=== PATIENT | male | born 1970 | race Hispanic/Latino ===

== ENCOUNTER 2016-12-22 17:14 | Emergency (ER) | payer MEDICARE, MEDICAID ==
[2016-12-22 17:14] VITALS: BMI 15.7
[2016-12-22 17:58] VITALS: BP 118/74; PULSE 55; RESP 18; TEMP 98.1; O2SAT 95
== END 2016-12-22 17:57 | disposition left against medical advice (07) ==
LOC: C.ER 17:14
DX: R10.9 Unspecified abdominal pain (principal); Z02.9 Encounter for administrative examinations, unspecified

== ENCOUNTER 2016-12-27 16:51 | Emergency (ER) | payer MEDICARE, MEDICAID ==
[2016-12-27 16:52] VITALS: BMI 15.7
[2016-12-27 16:56] VITALS: BP 126/87; PULSE 78; RESP 20; TEMP 97.4; O2SAT 97
--- NOTE | 2016-12-27 17:15 | C.PDOC ---
History Of Present Illness 46 yr old male, well know to me, presents to the ER requesting prescription for . Patient also reports of right leg pain. Patient runs/jogs few miles each day. Patient denies fever, chills, chest pain, SOB, nausea, vomiting, weakness or numbness. Time Seen by Provider: 12/27/16 17:01 Chief Complaint (Nursing): Abdominal Pain History Per: Patient History/Exam Limitations: no limitations Onset/Duration Of Symptoms: Unknown Past Medical History Reviewed: Historical Data, Nursing Documentation, Vital Signs Vital Signs: Last Vital Signs Temp 97.4 F L 12/27/16 16:56 Pulse 78 12/27/16 16:56 Resp 20 12/27/16 16:56 BP 126/87 12/27/16 16:56 Pulse Ox 97 12/30/16 04:18 - Medical History PMH: Gastritis, Schizophrenia Family History: States: No Known Family Hx - Social History Hx Tobacco Use: No Hx Alcohol Use: No Hx Substance Use: No Review Of Systems Except As Marked, All Systems Reviewed And Found Negative. Constitutional: Negative for: Fever, Chills Cardiovascular: Negative for: Chest Pain Respiratory: Negative for: Shortness of Breath Gastrointestinal: Negative for: Nausea, Vomiting Musculoskeletal: Positive for: Leg Pain (Right leg ) Neurological: Negative for: Weakness, Numbness Physical Exam - Physical Exam Appears: Well, Non-toxic, No Acute Distress Skin: Normal Color, Warm, Dry, No Rash Head: Atraumatic, Normacephalic Eye(s): bilateral: Normal Inspection, PERRL, EOMI Oral Mucosa: Moist Chest: Symmetrical, No Tenderness Cardiovascular: Rhythm Regular, No Murmur Respiratory: Normal Breath Sounds, No Rales, No Rhonchi, No Wheezing Gastrointestinal/Abdominal: Normal Exam, Soft, No Tenderness, No Guarding, No Rebound Extremity: Normal ROM, No Swelling Neurological/Psych: Oriented x3, Normal Speech, Normal Motor ED Course And Treatment O2 Sat by Pulse Oximetry: 97 Medical Decision Making Medical Decision Making: No indication of acute abd or DVT Rx given Disposition Counseled Patient/Family Regarding: Diagnosis, Need For Followup - Disposition Referrals: [facility] at [facility] [Outside] Disposition: HOME/ ROUTINE Disposition Time: 17:15 Condition: GOOD Prescriptions: Atropine/Hyoscyamine [] 1 tab PO TID PRN #20 tab PRN Reason: .abd pain Diclofenac Sodium [Voltaren] 4 gm TP TID #100 gel..gram. Instructions: Acute Abdominal Pain (DC), Leg Pain (ED) - Clinical Impression Clinical Impression: Pain of right calf, Abdominal pain in male - Scribe Statement The provider has reviewed the documentation as recorded by the Neal Pires Provider Attestation: All medical record entries made by the Neal were at my direction and personally dictated by me. I have reviewed the chart and agree that the record accurately reflects my personal performance of the history, physical exam, medical decision making, and the department course for this patient. I have also personally directed, reviewed, and agree with the discharge instructions and disposition.
== END 2016-12-27 17:30 | disposition home or self-care (01) ==
LOC: C.ER 16:51
DX: M79.661 Pain in right lower leg (principal); R10.9 Unspecified abdominal pain

== ENCOUNTER 2017-01-16 16:27 | Emergency (ER) | payer MEDICARE, MEDICAID ==
[2017-01-16 16:40] VITALS: BMI 20.7
[2017-01-16 16:46] VITALS: BP 123/71; PULSE 53; RESP 18; TEMP 98.3; O2SAT 99
== END 2017-01-16 17:31 | disposition left against medical advice (07) ==
LOC: C.ER 16:27
DX: M79.662 Pain in left lower leg (principal); Z02.9 Encounter for administrative examinations, unspecified

== ENCOUNTER 2017-02-21 15:34 | Emergency (ER) | payer MEDICARE, MEDICAID ==
[2017-02-21 15:40] VITALS: BP 110/64; PULSE 57; RESP 18; TEMP 98; O2SAT 98
== END 2017-02-21 17:10 | disposition left against medical advice (07) ==
LOC: C.ER 15:34
DX: Z02.89 Encounter for other administrative examinations (principal); M79.605 Pain in left leg

== ENCOUNTER 2017-03-10 06:24 | Emergency (ER) | payer MEDICARE, MEDICAID ==
[2017-03-10 07:43] VITALS: BP 127/72; PULSE 74; RESP 16; TEMP 98.5; O2SAT 100
--- NOTE | 2017-03-10 07:49 | C.PDOC ---
History Of Present Illness 46 y/o male presents to ED with c/o left lower leg pain. Patient states he began to feel a cramping pain while running. Denies trauma, fall, new weakness or numbness, SOB, chest pain, or other associated symptoms. Time Seen by Provider: 03/10/17 07:36 Chief Complaint (Nursing): Lower Extremity Problem/Injury History Per: Patient History/Exam Limitations: no limitations Onset/Duration Of Symptoms: Days Current Symptoms Are (Timing): Still Present Recent travel outside of the [place]: No Past Medical History Reviewed: Historical Data, Nursing Documentation, Vital Signs Vital Signs: Last Vital Signs Temp 98.5 F 03/10/17 07:40 Pulse 74 03/10/17 07:40 Resp 16 03/10/17 07:40 BP 127/72 03/10/17 07:40 Pulse Ox 100 03/10/17 09:05 - Medical History PMH: Gastritis, Schizophrenia Family History: States: Unknown Family Hx - Social History Hx Tobacco Use: No Hx Alcohol Use: No Hx Substance Use: No - Immunization History Hx Tetanus Toxoid Vaccination: No Hx Influenza Vaccination: No Hx Pneumococcal Vaccination: No Review Of Systems Except As Marked, All Systems Reviewed And Found Negative. Constitutional: Negative for: Fever, Chills Musculoskeletal: Positive for: Leg Pain Skin: Negative for: Rash, Bruising Neurological: Negative for: Weakness, Numbness Physical Exam - Physical Exam Appears: Non-toxic, No Acute Distress Skin: Normal Color, Warm, Dry Head: Atraumatic, Normacephalic Eye(s): bilateral: Normal Inspection, PERRL, EOMI Oral Mucosa: Moist Neck: Normal ROM, Supple Chest: Symmetrical Cardiovascular: Rhythm Regular, No Friction Rub, No Murmur Respiratory: Normal Breath Sounds, No Rales, No Rhonchi, No Wheezing Gastrointestinal/Abdominal: Soft, No Tenderness, No Guarding, No Rebound Back: Normal Inspection Extremity: Normal ROM, No Tenderness, No Calf Tenderness, Capillary Refill (< 2 sec. ), No Deformity, No Swelling Extremity: Bilateral: Atraumatic, Normal Color And Temperature Pulses: Left Dorsalis Pedis: Normal, Right Dorsalis Pedis: Normal Neurological/Psych: Oriented x3, Normal Speech, Normal Cranial Nerves, Normal Motor, Normal Sensation Gait: Steady ED Course And Treatment O2 Sat by Pulse Oximetry: 100 (RA) Pulse Ox Interpretation: Normal Medical Decision Making Medical Decision Making: Plan: * venous duplex scan * reassess Progress: Patient eloped from ER prior to tests. 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 - Scribe Statement The provider has reviewed the documentation as recorded by the Ashokibjayce López All medical record entries made by the Neal were at my direction and personally dictated by me. I have reviewed the chart and agree that the record accurately reflects my personal performance of the history, physical exam, medical decision making, and the department course for this patient. I have also personally directed, reviewed, and agree with the discharge instructions and disposition.
== END 2017-03-10 07:40 | disposition left against medical advice (07) ==
LOC: C.ER 06:24
DX: M79.662 Pain in left lower leg (principal)

== ENCOUNTER 2017-03-14 07:28 | Emergency (ER) | payer MEDICARE, MEDICAID ==
[2017-03-14 07:32] VITALS: BP 107/65; PULSE 84; RESP 16; TEMP 97.3; O2SAT 97
--- NOTE | 2017-03-14 07:46 | C.PDOC ---
History Of Present Illness Patient is a 46 y/o male, with psychiatric history, that presents to the ED for evaluation of crampy left calf pain for the past 1 week. Patient notes being seen in this ED and [facility] several times in the past. Pt is requesting pain medications. Notes that pain is 4/10 in severity, and states pain is increased with running. Otherwise, denies any fall, trauma, extremity weakness/numbness, fever, chills, skin changes, or any other associated symptoms at this time. Time Seen by Provider: 03/14/17 07:35 Chief Complaint (Nursing): Lower Extremity Problem/Injury History Per: Patient History/Exam Limitations: no limitations Onset/Duration Of Symptoms: Days Current Symptoms Are (Timing): Still Present Severity: Moderate Pain Scale Rating Of: 4 Recent travel outside of the [place]: No Additional History Per: Patient Past Medical History Reviewed: Historical Data, Nursing Documentation, Vital Signs Vital Signs: Last Vital Signs Temp 97.3 F L 03/14/17 07:31 Pulse 84 03/14/17 07:31 Resp 16 03/14/17 07:31 BP 107/65 03/14/17 07:31 Pulse Ox 97 03/14/17 09:05 - Medical History PMH: Gastritis, Schizophrenia Denies: Chronic Kidney Disease Family History: States: Unknown Family Hx - Social History Hx Tobacco Use: No Hx Alcohol Use: No Hx Substance Use: No - Immunization History Hx Tetanus Toxoid Vaccination: No Hx Influenza Vaccination: No Hx Pneumococcal Vaccination: No Review Of Systems Except As Marked, All Systems Reviewed And Found Negative. Constitutional: Negative for: Fever, Chills Musculoskeletal: Positive for: Leg Pain (left calf pain) Skin: Negative for: Rash Neurological: Negative for: Weakness, Numbness Physical Exam - Physical Exam Appears: Non-toxic, No Acute Distress Skin: Normal Color, Warm, Dry Head: Atraumatic, Normacephalic Eye(s): bilateral: Normal Inspection, EOMI Neck: Normal ROM, Supple Chest: Symmetrical Cardiovascular: Rhythm Regular, No Murmur Respiratory: Normal Breath Sounds, No Rales, No Rhonchi, No Wheezing Extremity: Normal ROM, No Tenderness, No Pedal Edema, No Calf Tenderness, Capillary Refill (< 2 sec.), No Deformity, No Swelling Extremity: Bilateral: Atraumatic, Normal Color And Temperature, Normal ROM Neurological/Psych: Oriented x3, Normal Speech, Normal Cognition, Normal Motor, Normal Sensation ED Course And Treatment O2 Sat by Pulse Oximetry: 97 (on RA) Pulse Ox Interpretation: Normal Progress Note: Pt is being dicharged home with prescription of Motrin 600mg, and is instructed to follow up with PMD. Disposition Counseled Patient/Family Regarding: Need For Followup, Rx Given - Disposition Disposition: HOME/ ROUTINE Disposition Time: 07:44 Condition: GUARDED Prescriptions: Ibuprofen [Motrin] 600 mg PO TID #15 tab Menthol [Bengay Cold Therapy] 113 g TP DAILY #1 bottle Instructions: RICE Therapy (ED) Forms: General Discharge Instructions - POA Present On Arrival: None - Clinical Impression Clinical Impression: Leg pain, left, Muscle strain - Scribe Statement The provider has reviewed the documentation as recorded by the Neal Guthrie Provider Attestation: All medical record entries made by the Ashokibjayce were at my direction and personally dictated by me. I have reviewed the chart and agree that the record accurately reflects my personal performance of the history, physical exam, medical decision making, and the department course for this patient. I have also personally directed, reviewed, and agree with the discharge instructions and disposition.
== END 2017-03-14 07:56 | disposition home or self-care (01) ==
LOC: C.ER 07:28
DX: S86.912A Strain of unspecified muscle(s) and tendon(s) at lower leg level, left leg, initial encounter (principal); X58.XXXA Exposure to other specified factors, initial encounter; M79.605 Pain in left leg

== ENCOUNTER 2017-04-22 06:25 | Emergency (ER) | payer MEDICARE, MEDICAID ==
[2017-04-22 06:42] VITALS: BP 115/70; PULSE 52; RESP 17; TEMP 97.6; O2SAT 98
--- NOTE | 2017-04-22 06:43 | C.PDOC ---
History Of Present Illness A 46 y/o M c/o right leg cramps after walking a lot yesterday. Pt is requesting Flexeril and has PHx of the same complaint all with request of Flexeril. Denies trauma, calf pain, weakness, numbness, or any other complaints. Time Seen by Provider: 04/22/17 06:38 Chief Complaint (Nursing): Lower Extremity Problem/Injury History Per: Patient History/Exam Limitations: no limitations Onset/Duration Of Symptoms: Days Current Symptoms Are (Timing): Still Present Severity: Mild Recent travel outside of the [place]: No Additional History Per: Patient Past Medical History Reviewed: Historical Data, Nursing Documentation, Vital Signs Vital Signs: Last Vital Signs Temp 97.6 F 04/22/17 06:38 Pulse 52 L 04/22/17 06:38 Resp 17 04/22/17 06:38 BP 115/70 04/22/17 06:38 Pulse Ox 98 04/22/17 06:38 - Medical History PMH: Gastritis, Schizophrenia Denies: Chronic Kidney Disease Family History: States: Unknown Family Hx - Social History Hx Tobacco Use: No Hx Alcohol Use: No Hx Substance Use: No - Immunization History Hx Tetanus Toxoid Vaccination: No Hx Influenza Vaccination: No Hx Pneumococcal Vaccination: No Review Of Systems Except As Marked, All Systems Reviewed And Found Negative. Constitutional: Negative for: Other (trauma) Musculoskeletal: Positive for: Leg Pain (Right leg cramps. NO calf pain) Neurological: Negative for: Weakness, Numbness Physical Exam - Physical Exam Appears: Non-toxic, No Acute Distress Skin: Warm, Dry Head: Atraumatic, Normacephalic Extremity: Normal ROM, No Tenderness, No Calf Tenderness, Capillary Refill (< 2secs), No Deformity, No Swelling Extremity: Bilateral: Normal Color And Temperature Pulses: Left Dorsalis Pedis: Normal, Right Dorsalis Pedis: Normal Neurological/Psych: Oriented x3, Normal Speech, Normal Cognition, Normal Motor, Normal Sensation, Other (No focal deficit) Gait: Steady ED Course And Treatment O2 Sat by Pulse Oximetry: 98 (RA) Pulse Ox Interpretation: Normal Progress Note: Impression: A 46 y/o M c/o right lower leg cramps after wallking a lot yesterday. Plans: Flexeril, Reassess. Pt is in no acute distress and is resting comfortably. Pt will be discharged and instructed to follow up with PMD if symptoms persists. Disposition Counseled Patient/Family Regarding: Diagnosis, Need For Followup, Rx Given - Disposition Referrals: [facility] at [facility] [Outside] Disposition Time: 06:50 Condition: STABLE Prescriptions: Acetaminophen [Tylenol 325mg tab] 650 mg PO QID #20 tab Cyclobenzaprine [Cyclobenzaprine HCl] 10 mg PO HS #5 tab - Clinical Impression Clinical Impression: Muscle strain of thigh - Scribe Statement The provider has reviewed the documentation as recorded by the Scribjayce jaime All medical record entries made by the Ashokibjayce were at my direction and personally dictated by me. I have reviewed the chart and agree that the record accurately reflects my personal performance of the history, physical exam, medical decision making, and the department course for this patient. I have also personally directed, reviewed, and agree with the discharge instructions and disposition.
== END 2017-04-22 06:49 | disposition home or self-care (01) ==
LOC: C.ER 06:25 → SUPCPDRO 06:25 → C.ER 06:49
DX: S76.911A Strain of unspecified muscles, fascia and tendons at thigh level, right thigh, initial encounter (principal); X50.3XXA Overexertion from repetitive movements, initial encounter; Y93.01 Activity, walking, marching and hiking; Y92.89 Other specified places as the place of occurrence of the external cause

== ENCOUNTER 2017-05-10 13:59 | Emergency (ER) | payer MEDICAID, MEDICARE ==
[2017-05-10 14:32] VITALS: BMI 19.0
[2017-05-10 14:34] VITALS: BP 114/72; PULSE 70; RESP 20; TEMP 98.3; O2SAT 98
--- NOTE | 2017-05-10 15:05 | C.PDOC ---
History Of Present Illness 47 yo male come in for evaluation of nasal congestion, sore throat and dry cough for past few days. Pt denies high fever chills, dizziness, neck pain, drooling, dysphgia, dyspnea, CP, SOB, wheezing, abd. pain, N/V/D. Ambulate to ED for evaluation, not in any apparent distress. Time Seen by Provider: 05/10/17 14:41 Chief Complaint (Nursing): ENT Problem History Per: Patient Onset/Duration Of Symptoms: Gradual Past Medical History Reviewed: Historical Data, Nursing Documentation, Vital Signs Vital Signs: Last Vital Signs Temp 98.3 F 05/10/17 14:33 Pulse 70 05/10/17 14:33 Resp 20 05/10/17 14:33 BP 114/72 05/10/17 14:33 Pulse Ox 98 05/10/17 15:06 - Medical History PMH: Gastritis, Schizophrenia Denies: Chronic Kidney Disease Surgical History: No Surg Hx Family History: States: No Known Family Hx - Social History Hx Tobacco Use: No Hx Alcohol Use: No Hx Substance Use: No - Immunization History Hx Tetanus Toxoid Vaccination: No Hx Influenza Vaccination: No Hx Pneumococcal Vaccination: No Review Of Systems Except As Marked, All Systems Reviewed And Found Negative. Constitutional: Negative for: Fever, Chills ENT: Positive for: Nose Discharge, Nose Congestion, Throat Pain, Throat Swelling. Negative for: Ear Pain, Ear Discharge Cardiovascular: Negative for: Chest Pain, Palpitations, Edema Respiratory: Positive for: Cough. Negative for: Shortness of Breath, Wheezing Gastrointestinal: Negative for: Nausea, Vomiting, Abdominal Pain, Diarrhea Skin: Negative for: Rash Neurological: Negative for: Weakness, Numbness, Altered Mental Status, Headache , Dizziness Physical Exam - Physical Exam Appears: Well, Non-toxic, No Acute Distress Skin: Normal Color, Warm, Dry, No Rash Eye(s): bilateral: PERRL Ear(s): Bilateral: Normal Nose: No Flaring Oral Mucosa: Moist, No Drooling Throat: Erythema (B/L), Exudate (B/L), No Drooling Neck: Supple Cardiovascular: Rhythm Regular Respiratory: No Decreased Breath Sounds, No Accessory Muscle Use, No Rales, No Rhonchi, No Stridor, No Wheezing Gastrointestinal/Abdominal: Soft, No Tenderness Extremity: No Pedal Edema Neurological/Psych: Oriented x3, Normal Speech ED Course And Treatment O2 Sat by Pulse Oximetry: 98 Pulse Ox Interpretation: Normal Progress Note: On re-eavluation, pt is afebrile, hemodynamicaly stable. Non- toxic. Tolerate Po well in ED. PUleOx 98% RA. ENT: exam c/w pharyngitis. neck : Supple, (-) meningeal sign. Lungs: CTA B/L, BS equal B/L. ABd: benign. Pt advised on course of ds and ref. to F/U with PMD in 2 days for re-evaluation. return to ED at any time if any worsening or new changes. Disposition Counseled Patient/Family Regarding: Diagnosis, Need For Followup, Rx Given - Disposition Referrals: [facility] [Outside] Disposition: HOME/ ROUTINE Disposition Time: 15:03 Condition: STABLE Additional Instructions: Encourage fluids Take medication as prescribed [id number] up with PMD in 2-3 days for re-evaluation. Return to ED if any worsening or new changes. Prescriptions: Albuterol HFA [Ventolin HFA 90 mcg/actuation (8 g)] 1 puff IH Q6 #1 inhaler Azithromycin [Zithromax] 250 mg PO DAILY #4 tab Prednisone [Deltasone] 20 mg PO DAILY #3 tablet Instructions: Pharyngitis (ED) Forms: Get[employer] (Danish) - Clinical Impression Clinical Impression: Pharyngitis
== END 2017-05-10 15:30 | disposition home or self-care (01) ==
LOC: C.ER 13:59
DX: J02.9 Acute pharyngitis, unspecified (principal)

== ENCOUNTER 2017-07-04 14:21 | Emergency (ER) | payer MEDICARE, MEDICAID ==
[2017-07-04 14:21] VITALS: BMI 19.2
== END 2017-07-04 14:40 | disposition left against medical advice (07) ==
LOC: C.ER 14:21
DX: M25.561 Pain in right knee (principal); Z02.9 Encounter for administrative examinations, unspecified

== ENCOUNTER → 2017-07-15 16:43 | Emergency (ER) | payer MEDICARE, MEDICAID | END | disposition left against medical advice (07) | LOC: C.ER 16:43 | DX: M79.606 Pain in leg, unspecified (principal); Z02.9 Encounter for administrative examinations, unspecified ==

== ENCOUNTER 2017-09-15 17:09 | Emergency (ER) | payer MEDICARE, MEDICAID ==
[2017-09-15 17:22] VITALS: BP 125/74; PULSE 88; RESP 18; TEMP 99.3; O2SAT 96
[2017-09-15] MEDS ORDERED: Alum-Mag Hydrox-Simethicone Susp (30 mL) PO STA (17:58)
[2017-09-15] MEDS ORDERED: Alum-Mag Hydrox-Simethicone Susp (30 mL) ONE (18:04)
--- NOTE | 2017-09-15 18:17 | C.PDOC ---
Time Seen by Provider: 09/15/17 17:48 Chief Complaint (Nursing): Abdominal Pain History Per: Patient Onset/Duration Of Symptoms: Mins Current Symptoms Are (Timing): Still Present Context: Food (after eating at [employer]) Severity: Mild Location Of Pain/Discomfort: Epigastric Radiation Of Pain To:: None Quality Of Discomfort: Unable To Describe Additional History Per: Prior Records Past Medical History Reviewed: Historical Data, Nursing Documentation, Vital Signs Vital Signs: Last Vital Signs Temp 99.3 F 09/15/17 17:21 Pulse 88 09/15/17 17:21 Resp 18 09/15/17 17:21 BP 125/74 09/15/17 17:21 Pulse Ox 96 09/15/17 17:21 - Medical History PMH: Gastritis, Schizophrenia Surgical History: No Surg Hx Family History: States: Unknown Family Hx - Social History Hx Tobacco Use: No Hx Alcohol Use: No Hx Substance Use: No - Immunization History Hx Tetanus Toxoid Vaccination: No Hx Influenza Vaccination: No Hx Pneumococcal Vaccination: No Review Of Systems Except As Marked, All Systems Reviewed And Found Negative. Constitutional: Negative for: Fever, Weakness Cardiovascular: Negative for: Chest Pain Respiratory: Negative for: Shortness of Breath Gastrointestinal: Negative for: Vomiting, Diarrhea, Melena, Hematochezia, Hematemesis Genitourinary: Negative for: Dysuria Musculoskeletal: Negative for: Neck Pain, Back Pain Skin: Negative for: Rash Neurological: Negative for: Weakness, Numbness, Seizures, Altered Mental Status , Dizziness Physical Exam - Physical Exam Appears: Non-toxic, No Acute Distress Skin: Normal Color, Warm, Dry, No Rash Head: Atraumatic, Normacephalic Eye(s): bilateral: Normal Inspection, PERRL, EOMI Neck: Normal ROM, Supple Cardiovascular: Rhythm Regular Respiratory: Normal Breath Sounds, No Accessory Muscle Use Gastrointestinal/Abdominal: Soft, No Tenderness, No Distention Back: No CVA Tenderness Extremity: Normal ROM, No Pedal Edema, No Calf Tenderness Neurological/Psych: Oriented x3, Normal Motor, Normal Sensation ED Course And Treatment O2 Sat by Pulse Oximetry: 96 Pulse Ox Interpretation: Normal Progress - Interventions Interventions:: Observation - Medications Administered Oral: Antacid, H-2 dhruv - Patient Status Patient status: Completely improved - Continuity of Care Discussed patient case with:: Patient, ED Nurse - Patient Plan Patient Plan: Discharge, F/U with PCP, Continue present meds Disposition Counseled Patient/Family Regarding: Diagnosis, Need For Followup, Rx Given - Disposition Disposition: HOME/ ROUTINE Disposition Time: 18:20 Condition: IMPROVED Additional Instructions: Follow up with your doctor within 1-2 weeks for further evaluation and treatment. Return to the ER if you develop fever, vomiting, bloody or black stools, worsening of symptoms or if you have any other concerns. Prescriptions: Famotidine [Pepcid] 20 mg PO BID #30 tab Instructions: Gastritis (ED) - Clinical Impression Clinical Impression: Gastritis
== END 2017-09-15 18:51 | disposition home or self-care (01) ==
LOC: C.ER 17:09
DX: K29.70 Gastritis, unspecified, without bleeding (principal)

== ENCOUNTER → 2017-09-21 15:47 | Emergency (ER) | payer MEDICARE, MEDICAID | END | disposition left against medical advice (07) | LOC: C.ER 15:47 | DX: Z02.89 Encounter for other administrative examinations (principal); R10.9 Unspecified abdominal pain ==

== ENCOUNTER 2017-10-18 15:22 | Emergency (ER) | payer MEDICARE, MEDICAID ==
[2017-10-18 15:27] VITALS: BP 121/80; PULSE 76; RESP 20; TEMP 97.7; O2SAT 98
[2017-10-18] MEDS ORDERED: Calcium Gluconate 4.65 mEq/10 ml Inj ONE (16:00)
[2017-10-18] MEDS ORDERED: Dextrose 50% VIAL Inj (50 ml) IV ONE (16:00)
[2017-10-18] MEDS ORDERED: (Novolin R) Insulin Human Regular 100 units/ml vial ONE (16:00)
--- NOTE | 2017-10-18 18:43 | C.PDOC ---
History Of Present Illness 16:52 PATIENT ELOPED ER PRIOR TO EXAMINATION. PATIENT WAS NOT SEEN BY ME Time Seen by Provider: 10/18/17 15:45 Chief Complaint (Nursing): Abdominal Pain Past Medical History Reviewed: Historical Data, Nursing Documentation, Vital Signs Vital Signs: Last Vital Signs Temp 97.7 F 10/18/17 15:25 Pulse 76 10/18/17 15:25 Resp 20 10/18/17 15:25 BP 121/80 10/18/17 15:25 Pulse Ox 98 10/18/17 18:43 - Medical History PMH: Gastritis, Schizophrenia Denies: Chronic Kidney Disease Family History: States: Unknown Family Hx - Social History Hx Tobacco Use: No Hx Alcohol Use: No Hx Substance Use: No - Immunization History Hx Tetanus Toxoid Vaccination: No Hx Influenza Vaccination: No Hx Pneumococcal Vaccination: No Review Of Systems Review Of Systems: ROS cannot be obtained secondary to pt's inabilty to answer questions. ED Course And Treatment O2 Sat by Pulse Oximetry: 98 Medical Decision Making Medical Decision Making: PATIENT ELOPED ER PRIOR TO EXAMINATION. PATIENT WAS NOT SEEN BY ME Patient left ED without being seen by me. No patient contact was made by me.Per administration, I was told to sign the chart, solely for the purpose of having patient off of my list, not because I saw the patient. I was also told by administration to write a statement stating that I was not involved in this patient's care. Disposition - Disposition Disposition: ELOPEMENT - ER ONLY Disposition Time: 16:52 Condition: UNKNOWN Forms: [employer] (American) - Clinical Impression Clinical Impression: History of elopement from health care facility
== END 2017-10-18 16:52 | disposition left against medical advice (07) ==
LOC: C.ER 15:22
DX: Z02.89 Encounter for other administrative examinations (principal); R10.9 Unspecified abdominal pain

== ENCOUNTER 2017-12-27 11:02 | Emergency (ER) | payer MEDICARE, MEDICAID ==
[2017-12-27 11:11] VITALS: BP 117/79; PULSE 94; RESP 20; TEMP 98; O2SAT 98
--- NOTE | 2017-12-27 11:32 | C.PDOC ---
History Of Present Illness 47-year-old male, presents to the emergency department with complaints of abdominal pain. Patient states he developed periumbilical pain while running in the park today. Patient has a Hx of multiple visits to the emergency department for various complaints. Patient states that the pain is gone and is requesting prescriptions for his GERD. Denies nausea/vomiting, diarrhea, fevers, chills, chest pain, GI bleeding, dysuria, constipation, or any other associated symptoms. No other complaints at this time. Time Seen by Provider: 12/27/17 11:23 Chief Complaint (Nursing): Abdominal Pain History Per: Patient History/Exam Limitations: no limitations Onset/Duration Of Symptoms: Days Current Symptoms Are (Timing): Gone Severity: Moderate Radiation Of Pain To:: None Associated Symptoms: denies: Fever, Chills, Back Pain Exacerbating Factors: None Alleviating Factors: None Recent travel outside of the [place]: No Past Medical History Reviewed: Historical Data, Nursing Documentation, Vital Signs Vital Signs: Last Vital Signs Temp 98 F 12/27/17 11:06 Pulse 94 H 12/27/17 11:06 Resp 20 12/27/17 11:06 BP 117/79 12/27/17 11:06 Pulse Ox 98 12/27/17 13:17 - Medical History PMH: No Chronic Diseases, Gastritis, Schizophrenia (as per previous triage.) Family History: States: No Known Family Hx - Social History Hx Tobacco Use: No Hx Alcohol Use: No Hx Substance Use: No - Immunization History Hx Tetanus Toxoid Vaccination: No Hx Influenza Vaccination: No Hx Pneumococcal Vaccination: No Review Of Systems Except As Marked, All Systems Reviewed And Found Negative. Constitutional: Negative for: Fever, Chills Cardiovascular: Negative for: Chest Pain Respiratory: Negative for: Shortness of Breath Gastrointestinal: Positive for: Abdominal Pain. Negative for: Nausea, Vomiting , Diarrhea, Constipation Musculoskeletal: Negative for: Back Pain Skin: Negative for: Rash Neurological: Negative for: Weakness, Numbness, Headache, Dizziness Physical Exam - Physical Exam Appears: Well, Non-toxic, No Acute Distress Skin: Normal Color, Warm, Dry, No Rash Head: Atraumatic, Normacephalic Eye(s): bilateral: Normal Inspection, PERRL, EOMI Nose: Normal Oral Mucosa: Moist Lips: Normal Appearing Neck: Normal ROM Cardiovascular: Rhythm Regular, No Murmur Respiratory: Normal Breath Sounds, No Accessory Muscle Use Gastrointestinal/Abdominal: Bowel Sounds (active), Soft, No Tenderness, No Guarding, No Rebound, No Hernia Back: Normal Inspection, No CVA Tenderness Extremity: Normal ROM, No Tenderness, No Deformity, No Swelling Neurological/Psych: Oriented x3, Normal Speech, Normal Motor Gait: Steady ED Course And Treatment O2 Sat by Pulse Oximetry: 98 (on RA) Pulse Ox Interpretation: Normal Disposition - Disposition Referrals: [facility] [Outside] Disposition: HOME/ ROUTINE Disposition Time: 12:00 Condition: GOOD Additional Instructions: Follow up with the medical doctor within 1-2 days. Return if worsened. Prescriptions: Acetaminophen [Tylenol] 325 mg PO Q6 PRN #30 tab PRN Reason: Pain, Mild (1-3) Aluminum Hydroxide/Magnesium [Maalox Plus 30 ml] 30 ml PO DAILY #200 udc Famotidine [Pepcid] 20 mg PO BID #20 tab Instructions: Dyspepsia (DC) Forms: [employer] (Indian) - Clinical Impression Clinical Impression: Normal exam, Dyspepsia - Scribe Statement The provider has reviewed the documentation as recorded by the Scribe (Ciera Mcneal) All medical record entries made by the Scribe were at my direction and personally dictated by me. I have reviewed the chart and agree that the record accurately reflects my personal performance of the history, physical exam, medical decision making, and the department course for this patient. I have also personally directed, reviewed, and agree with the discharge instructions and disposition.
== END 2017-12-27 12:00 | disposition home or self-care (01) ==
LOC: C.ER 11:02
DX: R10.13 Epigastric pain (principal)

== ENCOUNTER 2018-01-09 16:32 | Emergency (ER) | payer MEDICARE, MEDICAID ==
[2018-01-09 16:51] VITALS: BP 125/76; PULSE 61; TEMP 98.3; O2SAT 100
--- NOTE | 2018-01-09 17:08 | C.PDOC ---
History Of Present Illness 47 y/o male c/o left ear pain today. pt feels like he got a piece of q-tip stuck in his ear. no fever, no drainage from ear. denies any other complaints. Time Seen by Provider: 01/09/18 16:44 Chief Complaint (Nursing): ENT Problem History Per: Patient History/Exam Limitations: None Onset/Duration Of Symptoms: Days (1) Current Symptoms Are (Timing): Still Present Quality (Ear): Pain W/Touch, Foreign Body. denies: Discharge Past Medical History Reviewed: Historical Data, Nursing Documentation, Vital Signs Vital Signs: Last Vital Signs Temp 98.3 F 01/09/18 16:39 Pulse 61 01/09/18 16:39 Resp 16 01/09/18 17:21 BP 125/76 01/09/18 16:39 Pulse Ox 100 01/09/18 20:45 - Medical History PMH: Gastritis, Schizophrenia (as per previous triage.) Denies: Chronic Kidney Disease Family History: States: Unknown Family Hx - Social History Hx Tobacco Use: No Hx Alcohol Use: No Hx Substance Use: No - Immunization History Hx Tetanus Toxoid Vaccination: No Hx Influenza Vaccination: No Hx Pneumococcal Vaccination: No Review Of Systems Constitutional: Negative for: Fever, Chills ENT: Positive for: Ear Pain. Negative for: Nose Discharge, Nose Congestion, Mouth Swelling, Throat Pain Physical Exam - Physical Exam Appears: Non-toxic, No Acute Distress Skin: Warm, Dry Head: Atraumatic, Normacephalic Eye(s): bilateral: Normal Inspection Ear(s): Left: Other (no fb noted, beige debris moist noted in canal with dried wax, no fb noted, tm not visualized. ), Right: TM Obscured By Wax Nose: No Discharge Oral Mucosa: Moist Tongue: Normal Appearing Neurological/Psych: Oriented x3, Normal Speech, Normal Cognition ED Course And Treatment O2 Sat by Pulse Oximetry: 100 Medical Decision Making Medical Decision Making: pt with debris in canal, no fb noted, will d/c with cortsporin otic suspension and ent f/u. Tylenol for pain Disposition Counseled Patient/Family Regarding: Diagnosis, Need For Followup, Rx Given - Disposition Referrals: Neymar Berry MD [Staff Provider] - Disposition: HOME/ ROUTINE Disposition Time: 17:10 Condition: GOOD Additional Instructions: Use drops as directed. Tylenol for pain if needed. Follow up with Dr Berry (ear/ nose throat specialist) soon; call on Thursday to make appointment. Prescriptions: Neomycin/Polymyxin/Hydrocortis [Cortisporin Otic Susp] 4 drop TID #1 bottle Instructions: Outer Ear Infection (DC) Forms: [employer] [facility] (Malay) - Clinical Impression Clinical Impression: Otitis externa, left
[2018-01-09 17:22] VITALS: RESP 16
== END 2018-01-09 17:21 | disposition home or self-care (01) ==
LOC: C.ER 16:32
DX: H60.92 Unspecified otitis externa, left ear (principal)

== ENCOUNTER → 2018-01-15 18:48 | Emergency (ER) | payer MEDICAID, MEDICARE | END | disposition left against medical advice (07) | LOC: C.ER 18:48 | DX: Z02.89 Encounter for other administrative examinations (principal); R10.9 Unspecified abdominal pain ==

== ENCOUNTER 2018-02-05 16:18 | Emergency (ER) | payer MEDICARE, OTHER ==
[2018-02-05 16:50] VITALS: BP 119/74; O2SAT 97
--- NOTE | 2018-02-05 17:22 | C.PDOC ---
History Of Present Illness 47 year old male presents with a history of mental illness presents to the ED with nasal congestion and rhinorrhea for 2 weeks. Well known local psychiatric patient, well known for malingering and recently almost daily visits to the ED- usually @ [place]. Patient is argumentive and makes interrogatory difficult. Time Seen by Provider: 02/05/18 17:20 Chief Complaint (Nursing): Cough, Cold, Congestion History Per: Patient History/Exam Limitations: None Onset/Duration Of Symptoms: Days (2 weeks) Current Symptoms Are (Timing): Still Present Past Medical History Vital Signs: Last Vital Signs Temp 98.5 F 02/05/18 17:35 Pulse 69 02/05/18 17:35 Resp 17 02/05/18 17:35 BP 119/74 02/05/18 16:49 Pulse Ox 97 02/05/18 18:28 - Medical History PMH: Gastritis, Schizophrenia Denies: Chronic Kidney Disease Family History: States: Unknown Family Hx - Social History Hx Tobacco Use: No Hx Alcohol Use: No Hx Substance Use: No - Immunization History Hx Tetanus Toxoid Vaccination: No Hx Influenza Vaccination: No Hx Pneumococcal Vaccination: No Review Of Systems Except As Marked, All Systems Reviewed And Found Negative. Musculoskeletal: Positive for: Other (right buttock discomfort) Physical Exam - Physical Exam Appears: Well, Non-toxic, No Acute Distress Skin: Warm Nose: Normal, No Epistaxis, Other (no nasal erythema) Neurological/Psych: Oriented x3, Normal Speech ED Course And Treatment O2 Sat by Pulse Oximetry: 97 (RA) Pulse Ox Interpretation: Normal Medical Decision Making Medical Decision Making: IMPRESSION: seasonal allergies malingering Plan: Disposition Doctor Will See Patient In The: Office Counseled Patient/Family Regarding: Studies Performed, Diagnosis - Disposition Referrals: [facility] [Outside] [facility] [Outside] [facility] [employer] [facility] [Outside] Disposition: HOME/ ROUTINE Disposition Time: 17:21 Condition: GOOD Additional Instructions: Flonase, Claritin, Iris for your seasonal allergy symptoms Instructions: Seasonal Allergies (DC) Forms: [facility] (Slovenian) - Clinical Impression Clinical Impression: Seasonal allergic conjunctivitis - Scribe Statement The provider has reviewed the documentation as recorded by the Scribe (Cierra Correia) Provider Attestation: All medical record entries made by the Scribe were at my direction and personally dictated by me. I have reviewed the chart and agree that the record accurately reflects my personal performance of the history, physical exam, medical decision making, and the department course for this patient. I have also personally directed, reviewed, and agree with the discharge instructions and disposition.
[2018-02-05 17:37] VITALS: PULSE 69; RESP 17; TEMP 98.5
== END 2018-02-05 17:35 | disposition home or self-care (01) ==
LOC: C.ER 16:18
DX: H10.10 Acute atopic conjunctivitis, unspecified eye (principal)

== ENCOUNTER 2018-03-06 11:21 | Emergency (ER) | payer MEDICAID, MEDICARE, OTHER ==
[2018-03-06 11:21] VITALS: BMI 26.2
== END 2018-03-06 11:58 | disposition left against medical advice (07) ==
LOC: C.ER 11:21
DX: Z02.89 Encounter for other administrative examinations (principal); M79.606 Pain in leg, unspecified

== ENCOUNTER 2018-03-10 18:00 | Emergency (ER) | payer MEDICARE, OTHER ==
[2018-03-10 18:00] VITALS: BMI 26.2
[2018-03-10 18:20] VITALS: BP 116/72; PULSE 60; RESP 20; TEMP 98.8; O2SAT 99
--- NOTE | 2018-03-10 18:34 | C.PDOC ---
History Of Present Illness 47yo male, comes to ER with complaints of right calf pain, present since this morning. Patient states the pain started after he "ran a long distance." He denies any known trauma, injuries, shortness of breath, dyspnea or palpitations. He has no other medical complaints. previous ED records review from multiple visits to Ed due to same complaints. At the time of evaluation, pt is ambulatory in Ed with stable gait, not in any apparent distress. Time Seen by Provider: 03/10/18 18:16 Chief Complaint (Nursing): Lower Extremity Problem/Injury History Per: Patient History/Exam Limitations: no limitations Onset/Duration Of Symptoms: Hrs Current Symptoms Are (Timing): Still Present Past Medical History Reviewed: Historical Data, Nursing Documentation, Vital Signs Vital Signs: Last Vital Signs Temp 98.8 F 03/10/18 18:15 Pulse 60 03/10/18 18:15 Resp 20 03/10/18 18:15 BP 116/72 03/10/18 18:15 Pulse Ox 99 03/10/18 18:44 - Medical History PMH: Gastritis, Schizophrenia Denies: Chronic Kidney Disease Surgical History: No Surg Hx Family History: States: No Known Family Hx, Unknown Family Hx - Social History Hx Tobacco Use: No Hx Alcohol Use: No Hx Substance Use: No - Immunization History Hx Tetanus Toxoid Vaccination: No Hx Influenza Vaccination: No Hx Pneumococcal Vaccination: No Review Of Systems Except As Marked, All Systems Reviewed And Found Negative. Constitutional: Negative for: Fever, Chills Cardiovascular: Negative for: Chest Pain Respiratory: Negative for: Shortness of Breath, Wheezing Musculoskeletal: Positive for: Leg Pain (right calf pain) Physical Exam - Physical Exam Appears: Non-toxic, No Acute Distress Skin: Normal Color, Warm, Dry, No Ecchymosis Head: Normacephalic Eye(s): bilateral: PERRL Nose: No Flaring, No Discharge Oral Mucosa: Moist Throat: No Drooling Neck: Supple Chest: Symmetrical Cardiovascular: Rhythm Regular, No Murmur, No JVD Respiratory: No Decreased Breath Sounds, No Accessory Muscle Use, No Stridor, No Wheezing Gastrointestinal/Abdominal: Soft, No Tenderness Extremity: Normal ROM (RLE), No Tenderness, No Pedal Edema, Calf Tenderness ( mild right calf tenderness), No Deformity, No Swelling Neurological/Psych: Oriented x3, Normal Speech, Normal Motor, Normal Sensation, Normal Reflexes ED Course And Treatment O2 Sat by Pulse Oximetry: 99 (RA) Pulse Ox Interpretation: Normal Progress Note: On re-evaluation, pt is afebrile, hemodynamicalys table. Non- toxic. PuslEOx 99% RA. neck: Supple, (-) JVD, (-) carotid bruits B/L. Lungs: CTA B/L, BS equal B/L. RLE: exam c/w mild Right calf tenderness, No edema, no erythema, no palpable cords. FAROM, no neurovascular dfiicts. Pt is well known to ED, seem chronic Right lower leg pain,m was seen in ED mutiple times before due to same complaints. NO indication for anticoagulation tx now. Although, pt strongly recommend to retun to ED tomorrow for Doppler US of RLE r/o DVT. Pt understand and agrees with plan. Disposition Counseled Patient/Family Regarding: Diagnosis, Need For Followup - Disposition Referrals: 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 - Scribe Statement The provider has reviewed the documentation as recorded by the Scribe (Marifer Jensen) Provider Attestation: All medical record entries made by the Scribe were at my direction and personally dictated by me. I have reviewed the chart and agree that the record accurately reflects my personal performance of the history, physical exam, medical decision making, and the department course for this patient. I have also personally directed, reviewed, and agree with the discharge instructions and disposition.
== END 2018-03-10 18:55 | disposition home or self-care (01) ==
LOC: C.ER 18:00
DX: M79.604 Pain in right leg (principal)

== ENCOUNTER 2018-03-12 18:07 | Emergency (ER) | payer MEDICARE, OTHER ==
[2018-03-12 18:18] VITALS: BP 126/79; PULSE 73; RESP 18; TEMP 98.8; O2SAT 99; BMI 18.7
== END 2018-03-12 18:17 | disposition left against medical advice (07) ==
LOC: C.ER 18:07
DX: Z02.89 Encounter for other administrative examinations (principal); M79.604 Pain in right leg

== ENCOUNTER 2018-03-13 18:42 | Emergency (ER) | payer MEDICARE, OTHER ==
[2018-03-13 18:48] VITALS: BMI 17.4
[2018-03-13 18:49] VITALS: BP 125/78; PULSE 67; RESP 18; TEMP 98.6; O2SAT 99
--- NOTE | 2018-03-13 19:29 | C.PDOC ---
Time Seen by Provider: 03/13/18 19:14 Chief Complaint (Nursing): Lower Extremity Problem/Injury Past Medical History Vital Signs: Last Vital Signs Temp 98.6 F 03/13/18 18:47 Pulse 67 03/13/18 18:47 Resp 18 03/13/18 18:47 BP 125/78 03/13/18 18:47 Pulse Ox 99 03/13/18 19:37 - Medical History PMH: Gastritis, Schizophrenia Denies: Chronic Kidney Disease Family History: States: Unknown Family Hx - Social History Hx Tobacco Use: No Hx Alcohol Use: No Hx Substance Use: No - Immunization History Hx Tetanus Toxoid Vaccination: No Hx Influenza Vaccination: No Hx Pneumococcal Vaccination: No ED Course And Treatment O2 Sat by Pulse Oximetry: 99 Disposition Counseled Patient/Family Regarding: Diagnosis, Need For Followup - Disposition Disposition: LEFT W/O BEING SEEN - ER ONLY Disposition Time: 19:23 Condition: UNKNOWN Forms: [facility] (Turkmen) - POA Present On Arrival: Pressure Ulcer - Clinical Impression Clinical Impression: Patient left without being seen
== END 2018-03-13 19:38 | disposition left against medical advice (07) ==
LOC: C.ER 18:42
DX: Z02.89 Encounter for other administrative examinations (principal); S89.90XA Unspecified injury of unspecified lower leg, initial encounter

== ENCOUNTER → 2018-03-15 10:59 | Emergency (ER) | payer MEDICARE, OTHER ==
[2018-03-15 10:59] VITALS: BMI 17.4
== END | disposition left against medical advice (07) ==
LOC: C.ER 10:59
DX: Z02.89 Encounter for other administrative examinations (principal); M79.604 Pain in right leg

== ENCOUNTER → 2018-03-17 19:58 | Emergency (ER) | payer MEDICARE, OTHER ==
[2018-03-17 19:59] VITALS: BMI 17.4
== END | disposition left against medical advice (07) ==
LOC: C.ER 19:58
DX: Z02.89 Encounter for other administrative examinations (principal); R10.9 Unspecified abdominal pain

== ENCOUNTER 2018-03-18 18:06 | Emergency (ER) | payer MEDICARE, OTHER ==
[2018-03-18 18:20] VITALS: BP 123/78; PULSE 73; RESP 18; TEMP 97.9; O2SAT 98; BMI 17.5
--- NOTE | 2018-03-18 20:11 | C.PDOC ---
History Of Present Illness 47 y/o male with hx schizophrenia, presents to ED with right calf pain for unclear period of time; pt keeps requesting a 'cream to rub on leg; for the pain. patient has been seen in this ed multiple times for the same complaint. old charts reviewed. pt last seen 03/10 and advised to return to ed the next day for for a doppler of rle and did not return. pt denies sob, c/o 'heartburn' after eating. pt in no acute distress. pt is a poor historian. . Time Seen by Provider: 03/18/18 18:23 Chief Complaint (Nursing): Lower Extremity Problem/Injury History Per: Patient History/Exam Limitations: no limitations Current Symptoms Are (Timing): Still Present Severity: Mild Past Medical History Reviewed: Historical Data, Nursing Documentation, Vital Signs Vital Signs: Last Vital Signs Temp 97.9 F 03/18/18 18:14 Pulse 73 03/18/18 18:14 Resp 18 03/18/18 18:14 BP 123/78 03/18/18 18:14 Pulse Ox 98 03/18/18 20:21 - Medical History PMH: Gastritis, Schizophrenia Denies: Chronic Kidney Disease Family History: States: Unknown Family Hx - Social History Hx Tobacco Use: No Hx Alcohol Use: No Hx Substance Use: No - Immunization History Hx Tetanus Toxoid Vaccination: No Hx Influenza Vaccination: No Hx Pneumococcal Vaccination: No Review Of Systems Constitutional: Negative for: Fever, Chills Cardiovascular: Negative for: Chest Pain, Palpitations Respiratory: Negative for: Cough, Shortness of Breath Gastrointestinal: Negative for: Vomiting, Abdominal Pain Musculoskeletal: Negative for: Leg Pain Skin: Negative for: Rash Neurological: Negative for: Weakness, Numbness Physical Exam - Physical Exam Appears: Non-toxic, No Acute Distress Skin: Warm, Dry, No Rash Head: Atraumatic, Normacephalic Neck: Supple Chest: No Tenderness Cardiovascular: Rhythm Regular, No Murmur Respiratory: No Decreased Breath Sounds, No Wheezing Extremity: Other (right lower extremity- no calf swellling, no tenderness. no cords palpated, neg homans. no erythema, warmth or swelling. from +2 dp pulse ) Neurological/Psych: Oriented x3, Normal Speech, Normal Cognition ED Course And Treatment O2 Sat by Pulse Oximetry: 98 Medical Decision Making Medical Decision Making: pt with persistent right calf pain. no prior venous doppler exams done. . recommend pt return tomorrow in daytime hours for doppler to evaluate for dvt. no acute need for anti-coagulation at this time. approx 7 pm and pt has eloped from exam room. Disposition - Disposition Disposition: ELOPEMENT - ER ONLY Disposition Time: 19:05 Condition: GOOD Forms: [facility] (Kuwaiti) - Clinical Impression Clinical Impression: Right calf pain
== END 2018-03-18 19:05 | disposition left against medical advice (07) ==
LOC: C.ER 18:06
DX: M79.604 Pain in right leg (principal)

== ENCOUNTER 2018-03-20 09:13 | Emergency (ER) | payer MEDICARE, OTHER ==
[2018-03-20 09:16] VITALS: BMI 19.6
[2018-03-20 09:17] VITALS: BP 115/71; PULSE 80; RESP 18; TEMP 97.7; O2SAT 98
[2018-03-20] MEDS ORDERED: Amoxicillin-Clav 875-125 mg Tab PO STA (09:34)
[2018-03-20] MEDS ORDERED: Amoxicillin-Clav 875-125 mg Tab PO ONE (09:35)
--- NOTE | 2018-03-20 13:16 | C.PDOC ---
History Of Present Illness 47 y/o male presents to the ED complaining of left ear pain which has been going on for an unknown period of time. Patient denies any change in hearing or drainage from the ear. No other complaints offered. Time Seen by Provider: 03/20/18 09:29 Chief Complaint (Nursing): ENT Problem History Per: Patient History/Exam Limitations: None Onset/Duration Of Symptoms: Unknown Current Symptoms Are (Timing): Still Present Past Medical History Reviewed: Historical Data, Nursing Documentation, Vital Signs Vital Signs: Last Vital Signs Temp 97.7 F 03/20/18 09:16 Pulse 80 03/20/18 09:16 Resp 18 03/20/18 09:16 BP 115/71 03/20/18 09:16 Pulse Ox 98 03/20/18 13:30 - Medical History PMH: Gastritis, Schizophrenia Denies: Chronic Kidney Disease Family History: States: Unknown Family Hx - Social History Hx Tobacco Use: No Hx Alcohol Use: No Hx Substance Use: No - Immunization History Hx Tetanus Toxoid Vaccination: No Hx Influenza Vaccination: No Hx Pneumococcal Vaccination: No Review Of Systems Except As Marked, All Systems Reviewed And Found Negative. Constitutional: Negative for: Fever ENT: Positive for: Ear Pain. Negative for: Throat Pain Respiratory: Negative for: Cough, Shortness of Breath Physical Exam - Physical Exam Appears: Non-toxic, No Acute Distress Skin: Warm, Dry Head: Atraumatic, Normacephalic Eye(s): bilateral: Normal Inspection, PERRL, EOMI Ear(s): Left: Other (Left ear w/ serous drainage noted around the TM), Right: Normal Oral Mucosa: Moist Neck: Normal ROM, Supple Lymphatic: No Adenopathy Chest: Symmetrical Cardiovascular: Rhythm Regular, No Murmur Respiratory: Normal Breath Sounds, No Rales, No Rhonchi, No Wheezing Extremity: Bilateral: Atraumatic, Normal Color And Temperature, Normal ROM Neurological/Psych: Oriented x3, Normal Speech ED Course And Treatment O2 Sat by Pulse Oximetry: 98 (RA) Pulse Ox Interpretation: Normal Medical Decision Making Medical Decision Making: Initial Impression: Otitis media Time: 9:33 Initial Plan: --Augmentin 1 tab PO --Motrin 600 mg PO Counseled patient regarding diagnosis and treatment plan. Patient will be discharged home on antibiotics. Advised to take meds as prescribed and follow up in the clinic. Disposition Counseled Patient/Family Regarding: Diagnosis, Need For Followup, Rx Given - Disposition Referrals: [facility] [Outside] [facility] [Outside] Disposition: HOME/ ROUTINE Disposition Time: 09:32 Condition: GOOD Additional Instructions: ADRIAN PORRAS, thank you for letting us take care of you today. Your provider was Adrian Alcazar DO and you were treated for EAR PAIN. The emergency medical care you received today was directed at your acute symptoms. If you were prescribed any medication, please fill it and take as directed. It may take several days for your symptoms to resolve. Return to the Emergency Department if your symptoms worsen, do not improve, or if you have any other problems. Please contact your doctor or call one of the physicians/clinics you have been referred to that are listed on the Patient Visit Information form that is included in your discharge packet. Bring any paperwork you were given at discharge with you along with any medications you are taking to your follow up visit. Our treatment cannot replace ongoing medical care by a primary care provider outside of the emergency department. Thank you for allowing the [facility] team to be part of your care today. Follow up in the clinic in 3-4 days for re-evaluation and further management. Prescriptions: Amoxicillin/Clavulanate [Augmentin 875 MG-125 MG] 1 tab PO BID #14 tab Ibuprofen [Motrin] 600 mg PO Q6 PRN #20 tab PRN Reason: Pain, Moderate (4-7) Instructions: Ear Infections (Otitis Media) (DC) Forms: [employer] (Zambian) - POA Present On Arrival: None - Clinical Impression Clinical Impression: Otitis media - Scribe Statement The provider has reviewed the documentation as recorded by the Scribe (Tamiko Longoria) Provider Attestation: All medical record entries made by the Scribe were at my direction and personally dictated by me. I have reviewed the chart and agree that the record accurately reflects my personal performance of the history, physical exam, medical decision making, and the department course for this patient. I have also personally directed, reviewed, and agree with the discharge instructions and disposition.
== END 2018-03-20 09:48 | disposition home or self-care (01) ==
LOC: C.ER 09:13
DX: H66.92 Otitis media, unspecified, left ear (principal)

== ENCOUNTER 2018-03-21 19:38 | Emergency (ER) | payer MEDICARE, OTHER ==
[2018-03-21 19:39] VITALS: BMI 19.6
== END 2018-03-21 20:31 | disposition left against medical advice (07) ==
LOC: C.ER 19:38
DX: Z02.89 Encounter for other administrative examinations (principal); R10.9 Unspecified abdominal pain

== ENCOUNTER 2018-03-22 16:40 | Emergency (ER) | payer MEDICARE, OTHER ==
[2018-03-22 16:41] VITALS: BMI 19.6
== END 2018-03-22 17:13 | disposition left against medical advice (07) ==
LOC: C.ER 16:40
DX: Z02.89 Encounter for other administrative examinations (principal); R10.9 Unspecified abdominal pain

== ENCOUNTER 2018-03-27 18:18 | Emergency (ER) | payer MEDICARE ==
[2018-03-27 18:18] VITALS: BMI 19.6
[2018-03-27 18:29] VITALS: BP 117/74; PULSE 74; TEMP 98.4; O2SAT 98
[2018-03-27 19:35] VITALS: RESP 20
--- NOTE | 2018-03-27 22:28 | C.PDOC ---
Time Seen by Provider: 03/27/18 19:24 Chief Complaint (Nursing): Shortness Of Breath Past Medical History Vital Signs: Last Vital Signs Temp 98.4 F 03/27/18 19:35 Pulse 74 03/27/18 19:35 Resp 20 03/27/18 19:35 BP 117/74 03/27/18 19:35 Pulse Ox 98 03/27/18 19:35 - Medical History PMH: Gastritis, Schizophrenia Denies: Chronic Kidney Disease Family History: States: Unknown Family Hx - Social History Hx Tobacco Use: No Hx Alcohol Use: No Hx Substance Use: No - Immunization History Hx Tetanus Toxoid Vaccination: No Hx Influenza Vaccination: No Hx Pneumococcal Vaccination: No ED Course And Treatment O2 Sat by Pulse Oximetry: 98 Disposition - Disposition Disposition: ELOPEMENT - ER ONLY Disposition Time: 19:05 Condition: UNKNOWN Forms: [facility] (Qatari) - Clinical Impression Clinical Impression: Patient left without being seen
== END 2018-03-27 19:35 | disposition left against medical advice (07) ==
LOC: C.ER 18:18
DX: Z02.89 Encounter for other administrative examinations (principal); R06.02 Shortness of breath

== ENCOUNTER → 2018-03-29 21:05 | Emergency (ER) | payer MEDICARE, MEDICAID ==
[2018-03-29 21:05] VITALS: BMI 19.6
== END | disposition left against medical advice (07) ==
LOC: C.ER 21:05
DX: Z02.89 Encounter for other administrative examinations (principal); R10.9 Unspecified abdominal pain

== ENCOUNTER 2018-04-04 18:24 | Emergency (ER) | payer MEDICARE, MEDICAID ==
[2018-04-04 18:24] VITALS: BMI 19.6
== END 2018-04-04 18:33 | disposition left against medical advice (07) ==
LOC: C.ER 18:24
DX: Z02.89 Encounter for other administrative examinations (principal); M79.675 Pain in left toe(s)

== ENCOUNTER 2018-04-10 17:58 | Emergency (ER) | payer MEDICAID, MEDICARE ==
[2018-04-10 17:58] VITALS: BMI 19.6
== END 2018-04-10 18:19 | disposition left against medical advice (07) ==
LOC: C.ER 17:58
DX: Z02.89 Encounter for other administrative examinations (principal); M79.606 Pain in leg, unspecified

== ENCOUNTER → 2018-04-15 14:40 | Emergency (ER) | payer MEDICARE ==
[2018-04-15 14:40] VITALS: BMI 19.6
== END | disposition left against medical advice (07) ==
LOC: C.ER 14:40
DX: Z02.89 Encounter for other administrative examinations (principal); M79.669 Pain in unspecified lower leg

== ENCOUNTER 2018-04-24 14:41 | Emergency (ER) | payer MEDICARE, OTHER ==
[2018-04-24 14:47] VITALS: BMI 19.0
[2018-04-24 14:48] VITALS: BP 113/73; PULSE 60; RESP 18; TEMP 97.9; O2SAT 97
--- NOTE | 2018-04-24 14:55 | C.PDOC ---
History Of Present Illness 47 year old male presents to the ED complaining of right thigh pain. He denies any trauma/injuries, numbness, weakness, or tingling. Time Seen by Provider: 04/24/18 14:50 Chief Complaint (Nursing): Lower Extremity Problem/Injury History Per: Patient History/Exam Limitations: no limitations Onset/Duration Of Symptoms: Days Current Symptoms Are (Timing): Still Present Past Medical History Reviewed: Historical Data, Nursing Documentation, Vital Signs Vital Signs: Last Vital Signs Temp 97.9 F 04/24/18 14:47 Pulse 60 04/24/18 14:47 Resp 18 04/24/18 14:47 BP 113/73 04/24/18 14:47 Pulse Ox 97 04/24/18 15:06 - Medical History PMH: Gastritis, Schizophrenia Denies: Chronic Kidney Disease Other Surgeries: hx of surgeries Family History: States: No Known Family Hx - Social History Hx Tobacco Use: No Hx Alcohol Use: No Hx Substance Use: No - Immunization History Hx Tetanus Toxoid Vaccination: No Hx Influenza Vaccination: No Hx Pneumococcal Vaccination: No Review Of Systems Musculoskeletal: Positive for: Leg Pain (bilateral lower leg pain) Neurological: Negative for: Weakness, Numbness Physical Exam - Physical Exam Appears: Non-toxic, No Acute Distress Skin: Warm, Dry, No Rash Head: Atraumatic, Normacephalic Eye(s): bilateral: Normal Inspection Nose: Normal Oral Mucosa: Moist Neck: Normal ROM, Supple Chest: Symmetrical Extremity: Normal ROM, Tenderness (Mild tenderness to right thigh ), No Pedal Edema, Capillary Refill (< 2 sec to right thigh ), No Deformity, No Swelling, No Other (Erythema, mass) Extremity: Bilateral: Atraumatic, Normal Color And Temperature, Normal ROM Neurological/Psych: Oriented x3, Normal Speech, Normal Motor, Normal Sensation Gait: Steady ED Course And Treatment O2 Sat by Pulse Oximetry: 97 (RA) Medical Decision Making Medical Decision Making: Impression: leg pain Patient well known to ED with multiple ER visits for similar complaints, usually bed seeking. Has history of schizophrenia. Patient assessed and examined. Patient given Rx for Motrin and muscle rub. Patient instructed to follow up with clinic in 2-5 days and return to ED if symptoms persist or worsen. Disposition Counseled Patient/Family Regarding: Diagnosis, Need For Followup, Rx Given - Disposition Referrals: Rosalina Perales MD [Staff Provider] - Disposition: HOME/ ROUTINE Disposition Time: 14:53 Condition: GOOD Additional Instructions: Take Ibuprofen as needed for pain every 6-8 hours Prescriptions: Ibuprofen [Motrin] 600 mg PO Q8 #30 tab Methyl Salicylate/Menthol [[facility] Muscle Rub 10%-15%] 1 cre TP BID #1 cre Instructions: Muscle and Bone Pain (DC) Forms: [employer] (Nigerian) - POA Present On Arrival: None - Clinical Impression Clinical Impression: Leg pain - PA / WELFARE DIRECTOR / Resident Statement MD/DO has reviewed & agrees with the documentation as recorded. - Scribe Statement The provider has reviewed the documentation as recorded by the Scribe Nga Ponce All medical record entries made by the Scribe were at my direction and personally dictated by me. I have reviewed the chart and agree that the record accurately reflects my personal performance of the history, physical exam, medical decision making, and the department course for this patient. I have also personally directed, reviewed, and agree with the discharge instructions and disposition.
== END 2018-04-24 15:35 | disposition home or self-care (01) ==
LOC: C.ER 14:41
DX: M79.651 Pain in right thigh (principal)

== ENCOUNTER 2018-05-11 16:20 | Emergency (ER) | payer MEDICARE, OTHER ==
[2018-05-11 16:20] VITALS: BMI 19.0
== END 2018-05-11 16:40 | disposition left against medical advice (07) ==
LOC: C.ER 16:20
DX: Z02.89 Encounter for other administrative examinations (principal); R52 Pain, unspecified

== ENCOUNTER 2018-05-16 18:41 | Emergency (ER) | payer MEDICARE, OTHER ==
[2018-05-16 18:43] VITALS: BMI 19.0
== END 2018-05-16 19:18 | disposition left against medical advice (07) ==
LOC: C.ER 18:41
DX: Z02.89 Encounter for other administrative examinations (principal); M79.669 Pain in unspecified lower leg

== ENCOUNTER → 2018-05-22 17:29 | Emergency (ER) | payer MEDICARE, OTHER ==
[2018-05-22 17:29] VITALS: BMI 19.0
== END | disposition left against medical advice (07) ==
LOC: C.ER 17:29
DX: Z02.89 Encounter for other administrative examinations (principal); M79.606 Pain in leg, unspecified

== ENCOUNTER 2018-05-31 16:29 | Emergency (ER) | payer MEDICARE, OTHER ==
[2018-05-31 16:29] VITALS: BMI 19.0
[2018-05-31 16:35] VITALS: BP 122/75; PULSE 86; RESP 18; TEMP 98; O2SAT 99
--- NOTE | 2018-05-31 17:05 | C.PDOC ---
History Of Present Illness 48 yo male with h/o gastritis came to ED stating " I need a prescription for imodium." Pt states he was eating Limk earlier today, then started having some abdominal pain and diarrhea. Denies fever, vomiting , symptoms, testicular pain, or hematemisis. Time Seen by Provider: 05/31/18 16:52 Chief Complaint (Nursing): GI Problem History Per: Patient History/Exam Limitations: no limitations Onset/Duration Of Symptoms: Hrs Past Medical History Vital Signs: Last Vital Signs Temp 98 F 05/31/18 16:33 Pulse 86 05/31/18 16:33 Resp 18 05/31/18 16:33 BP 122/75 05/31/18 16:33 Pulse Ox 99 05/31/18 17:05 - Medical History PMH: Gastritis, Schizophrenia Denies: Chronic Kidney Disease Family History: States: Unknown Family Hx - Social History Hx Tobacco Use: No Hx Alcohol Use: No Hx Substance Use: No - Immunization History Hx Tetanus Toxoid Vaccination: No Hx Influenza Vaccination: No Hx Pneumococcal Vaccination: No Review Of Systems Except As Marked, All Systems Reviewed And Found Negative. Gastrointestinal: Positive for: Abdominal Pain, Diarrhea Physical Exam - Physical Exam Appears: Well, Non-toxic, No Acute Distress, Unkempt Skin: Normal Color, Warm, Dry Head: Atraumatic, Normacephalic Eye(s): bilateral: Normal Inspection, EOMI Nose: Normal Oral Mucosa: Moist Throat: Normal Neck: Normal, Normal ROM, Supple Chest: Symmetrical Cardiovascular: Rhythm Regular Respiratory: Normal Breath Sounds, No Accessory Muscle Use Gastrointestinal/Abdominal: Normal Exam, Soft, No Tenderness Back: Normal Inspection, No CVA Tenderness Extremity: Normal ROM Neurological/Psych: Oriented x3, Normal Speech ED Course And Treatment O2 Sat by Pulse Oximetry: 99 Progress Note: Pt was offered work up with he declines. Just request RX to go home with. Disposition - Disposition Disposition: HOME/ ROUTINE Disposition Time: 17:03 Condition: STABLE Additional Instructions: Follow up with your doctor in 1-2 days. Return to ER if symptoms persist or worsen. Prescriptions: Loperamide HCl [Imodium A-D] 2 mg PO DAILY PRN #10 tablet PRN Reason: Diarrhea Instructions: Acute Abdomen (Belly Pain), Adult (DC) Forms: [employer] (Lithuanian) - Clinical Impression Clinical Impression: Diarrhea
== END 2018-05-31 17:23 | disposition home or self-care (01) ==
LOC: C.ER 16:29
DX: R19.7 Diarrhea, unspecified (principal)

== ENCOUNTER 2018-06-07 15:56 | Emergency (ER) | payer MEDICARE, OTHER ==
[2018-06-07 15:56] VITALS: BMI 19.0
[2018-06-07 16:11] VITALS: BP 112/67; PULSE 67; RESP 18; TEMP 98.3; O2SAT 97
== END 2018-06-07 16:30 | disposition left against medical advice (07) ==
LOC: C.ER 15:56
DX: Z02.89 Encounter for other administrative examinations (principal); R10.9 Unspecified abdominal pain

== ENCOUNTER 2018-06-10 16:49 | Emergency (ER) | payer MEDICARE, OTHER ==
[2018-06-10 16:51] VITALS: BMI 19.0
== END 2018-06-10 17:15 | disposition left against medical advice (07) ==
LOC: C.ER 16:49
DX: Z02.89 Encounter for other administrative examinations (principal); R10.9 Unspecified abdominal pain

== ENCOUNTER 2018-06-11 18:08 | Emergency (ER) | payer MEDICARE, OTHER ==
[2018-06-11 18:08] VITALS: BMI 19.0
[2018-06-11 18:27] VITALS: BP 125/76; PULSE 50; RESP 18; TEMP 97.6; O2SAT 100
--- NOTE | 2018-06-11 18:43 | C.PDOC ---
History Of Present Illness 48 y/o male presents to the ED complaining of right lower leg pain at the anterior aspect. States it hurts when he runs, which he does every day. He denies any swelling or wounds to the area. Time Seen by Provider: 06/11/18 18:31 Chief Complaint (Nursing): Lower Extremity Problem/Injury History Per: Patient History/Exam Limitations: no limitations Onset/Duration Of Symptoms: Days Current Symptoms Are (Timing): Still Present Past Medical History Reviewed: Historical Data, Nursing Documentation, Vital Signs Vital Signs: Last Vital Signs Temp 97.6 F 06/11/18 18:25 Pulse 50 L 06/11/18 18:25 Resp 18 06/11/18 18:25 BP 125/76 06/11/18 18:25 Pulse Ox 100 06/11/18 18:47 - Medical History PMH: Gastritis, Schizophrenia Denies: Chronic Kidney Disease Family History: States: Unknown Family Hx - Social History Hx Tobacco Use: No Hx Alcohol Use: No Hx Substance Use: No - Immunization History Hx Tetanus Toxoid Vaccination: No Hx Influenza Vaccination: No Hx Pneumococcal Vaccination: No Review Of Systems Except As Marked, All Systems Reviewed And Found Negative. Musculoskeletal: Positive for: Leg Pain (right lower leg) Skin: Negative for: Rash, Lesions Neurological: Negative for: Weakness, Numbness, Incoordination Physical Exam - Physical Exam Appears: Non-toxic, No Acute Distress Skin: Warm, Dry Head: Atraumatic, Normacephalic Eye(s): bilateral: Normal Inspection Neck: Normal ROM Chest: Symmetrical Extremity: Normal ROM, No Tenderness, Capillary Refill (less than 2 sec), No Deformity, No Swelling, Other (Right leg with normal exam, no skin changes or wounds) Pulses: Left Dorsalis Pedis: Normal, Right Dorsalis Pedis: Normal Neurological/Psych: Oriented x3, Normal Speech ED Course And Treatment O2 Sat by Pulse Oximetry: 100 (RA) Pulse Ox Interpretation: Normal Medical Decision Making Medical Decision Making: Plan: Patient will be discharged home with naproxen. Counseled regarding diagnosis and follow up instructions. Disposition Counseled Patient/Family Regarding: Diagnosis, Rx Given - Disposition Referrals: [facility] [Outside] Disposition: HOME/ ROUTINE Disposition Time: 18:42 Condition: STABLE Additional Instructions: Follow up with the medical doctor within 1-2 days. return if worsened. Prescriptions: Naproxen 375 mg PO BID #20 tablet Instructions: Jimenez Splints Forms: [facility] [employer] (Turkish) - POA Present On Arrival: None - Clinical Impression Clinical Impression: Jimenez splints - PA / TEAROOM HOST/HOSTESS / Resident Statement MD/DO has reviewed & agrees with the documentation as recorded. - Scribe Statement The provider has reviewed the documentation as recorded by the Scribe (Tamiko Longoria) All medical record entries made by the Scribe were at my direction and personally dictated by me. I have reviewed the chart and agree that the record accurately reflects my personal performance of the history, physical exam, medical decision making, and the department course for this patient. I have also personally directed, reviewed, and agree with the discharge instructions and disposition.
--- NOTE | 2018-06-11 18:45 | C.PDOC ---
Time Seen by Provider: 06/11/18 18:31 Chief Complaint (Nursing): Lower Extremity Problem/Injury Past Medical History Vital Signs: Last Vital Signs Temp 97.6 F 06/11/18 18:25 Pulse 50 L 06/11/18 18:25 Resp 18 06/11/18 18:25 BP 125/76 06/11/18 18:25 Pulse Ox 100 06/11/18 18:25 - Medical History PMH: Gastritis, Schizophrenia Denies: Chronic Kidney Disease Family History: States: Unknown Family Hx - Social History Hx Tobacco Use: No Hx Alcohol Use: No Hx Substance Use: No - Immunization History Hx Tetanus Toxoid Vaccination: No Hx Influenza Vaccination: No Hx Pneumococcal Vaccination: No ED Course And Treatment O2 Sat by Pulse Oximetry: 100 Disposition - Disposition Referrals: [facility] [Outside] Disposition: HOME/ ROUTINE Disposition Time: 18:42 Condition: STABLE Additional Instructions: Follow up with the medical doctor within 1-2 days. return if worsened. Prescriptions: Naproxen 375 mg PO BID #20 tablet Instructions: Jimenez Splints - Clinical Impression Clinical Impression: Jimenez splints
== END 2018-06-11 18:56 | disposition home or self-care (01) ==
LOC: C.ER 18:08
DX: S86.891A Other injury of other muscle(s) and tendon(s) at lower leg level, right leg, initial encounter (principal); X58.XXXA Exposure to other specified factors, initial encounter

== ENCOUNTER 2018-06-14 15:16 | Emergency (ER) | payer MEDICARE, OTHER ==
[2018-06-14 15:16] VITALS: BMI 19.0
[2018-06-14 16:00] VITALS: BP 120/69; PULSE 51; RESP 18; TEMP 98; O2SAT 95
--- NOTE | 2018-06-14 16:23 | C.PDOC ---
History Of Present Illness 48 year old male with schizophrenia presents to ED for evaluation of right leg bug bites that began 3 minutes ago. Describes pain as itching. Seen today at 10am in [facility] for the same symptoms where Cortizone cream was applied. Patient has multiple ER visits with various complaints. Denies fever, vomiting, nausea, and other symptoms associated. Time Seen by Provider: 06/14/18 16:18 Chief Complaint (Nursing): Abnormal Skin Integrity History Per: Patient History/Exam Limitations: no limitations Onset/Duration Of Symptoms: Mins Current Symptoms Are (Timing): Still Present Past Medical History Reviewed: Historical Data, Nursing Documentation, Vital Signs Vital Signs: Last Vital Signs Temp 98.0 F 06/14/18 15:57 Pulse 51 L 06/14/18 15:57 Resp 18 06/14/18 15:57 BP 120/69 06/14/18 15:57 Pulse Ox 95 06/14/18 17:44 - Medical History PMH: Gastritis, Schizophrenia Denies: Chronic Kidney Disease Family History: States: Unknown Family Hx - Social History Hx Tobacco Use: No Hx Alcohol Use: No Hx Substance Use: No - Immunization History Hx Tetanus Toxoid Vaccination: No Hx Influenza Vaccination: No Hx Pneumococcal Vaccination: No Review Of Systems Except As Marked, All Systems Reviewed And Found Negative. Constitutional: Negative for: Fever, Chills Gastrointestinal: Negative for: Nausea, Vomiting Skin: Positive for: Other (right leg bug bites ) Physical Exam - Physical Exam Appears: Non-toxic Skin: Warm, Dry, Other (Bug bites, no infection) Head: Atraumatic, Normacephalic Eye(s): bilateral: Normal Inspection Oral Mucosa: Moist Chest: Symmetrical, No Tenderness Cardiovascular: Rhythm Regular Respiratory: Normal Breath Sounds, No Rales, No Rhonchi, No Wheezing Extremity: Normal ROM (x4) Neurological/Psych: Oriented x3, Normal Speech ED Course And Treatment O2 Sat by Pulse Oximetry: 95 (RA) Pulse Ox Interpretation: Normal Medical Decision Making Medical Decision Making: Patient left prior to receiving discharge paperwork. Disposition Counseled Patient/Family Regarding: Diagnosis, Need For Followup - Disposition Referrals: [facility] [Outside] [facility] [Outside] Disposition: HOME/ ROUTINE Disposition Time: 16:22 Condition: STABLE Instructions: Insect Bites and Stings (DC) Forms: [employer] (German) - Clinical Impression Clinical Impression: Urticaria, Bug bite - Scribe Statement The provider has reviewed the documentation as recorded by the Scribe (Maria Elena Linda) Provider Attestation: All medical record entries made by the Scribe were at my direction and personally dictated by me. I have reviewed the chart and agree that the record accurately reflects my personal performance of the history, physical exam, medical decision making, and the department course for this patient. I have also personally directed, reviewed, and agree with the discharge instructions and disposition.
== END 2018-06-14 16:24 | disposition home or self-care (01) ==
LOC: C.ER 15:16
DX: L50.9 Urticaria, unspecified (principal); S80.861A Insect bite (nonvenomous), right lower leg, initial encounter; W57.XXXA Bitten or stung by nonvenomous insect and other nonvenomous arthropods, initial encounter; F20.9 Schizophrenia, unspecified

== ENCOUNTER 2018-06-20 19:19 | Emergency (ER) | payer MEDICARE, OTHER ==
[2018-06-20 19:19] VITALS: BMI 16.6
[2018-06-20 19:41] VITALS: BP 118/73; PULSE 64; RESP 18; TEMP 98.5; O2SAT 100
== END 2018-06-20 20:22 | disposition left against medical advice (07) ==
LOC: C.ER 19:19 → SUPCPDRO 19:19 → C.ER 20:22
DX: Z02.89 Encounter for other administrative examinations (principal); M79.675 Pain in left toe(s)

== ENCOUNTER 2018-06-22 17:52 | Emergency (ER) | payer MEDICARE, OTHER ==
[2018-06-22 17:52] VITALS: BMI 16.6
[2018-06-22 18:01] VITALS: BP 119/74; PULSE 85; RESP 18; TEMP 98.1; O2SAT 98
--- NOTE | 2018-06-22 18:28 | C.PDOC ---
History Of Present Illness 48 year old male presents to the ED specifically requesting rx for epigastric pain. Notes he does not want a work up or exam and wants to be discharged home after receiving prescription. Denies fever, vomiting, and other associated symptoms. Time Seen by Provider: 06/22/18 18:08 Chief Complaint (Nursing): GI Problem History Per: Patient History/Exam Limitations: no limitations Onset/Duration Of Symptoms: Hrs Current Symptoms Are (Timing): Still Present Past Medical History Reviewed: Historical Data, Nursing Documentation, Vital Signs Vital Signs: Last Vital Signs Temp 98.1 F 06/22/18 17:58 Pulse 85 06/22/18 17:58 Resp 18 06/22/18 17:58 BP 119/74 06/22/18 17:58 Pulse Ox 98 06/22/18 18:29 - Medical History PMH: Gastritis, Schizophrenia (pt denies) Denies: Chronic Kidney Disease Family History: States: Unknown Family Hx - Social History Hx Tobacco Use: No Hx Alcohol Use: No Hx Substance Use: No - Immunization History Hx Tetanus Toxoid Vaccination: No Hx Influenza Vaccination: No Hx Pneumococcal Vaccination: No Review Of Systems Except As Marked, All Systems Reviewed And Found Negative. Constitutional: Negative for: Fever, Chills Gastrointestinal: Negative for: Nausea, Vomiting Physical Exam - Physical Exam Additional Physical Exam Comments: Exam is benign. Patient did not want a physical exam. ED Course And Treatment O2 Sat by Pulse Oximetry: 98 (RA) Pulse Ox Interpretation: Normal Medical Decision Making Medical Decision Making: Patient stable for discharge home and prescribed Pepcid. specificlaly requests rx and dc. well known to ed staff. abd soft no ttp. no rlq ttp Disposition - Disposition Referrals: [facility] [Outside] [facility] [Outside] Disposition: HOME/ ROUTINE Disposition Time: 05:00 Condition: STABLE Additional Instructions: return to er with worsening symptoms or concerns. follow up in clinic. Prescriptions: Famotidine [Pepcid] 20 mg PO DAILY #20 tab Instructions: Acute Abdomen (Belly Pain) Forms: [facility] (Costa Rican) - Clinical Impression Clinical Impression: Abdominal pain - Scribe Statement The provider has reviewed the documentation as recorded by the Scribe (Maria Elena Linda) Provider Attestation: All medical record entries made by the Scribe were at my direction and personally dictated by me. I have reviewed the chart and agree that the record accurately reflects my personal performance of the history, physical exam, medical decision making, and the department course for this patient. I have also personally directed, reviewed, and agree with the discharge instructions and disposition.
== END 2018-06-22 18:33 | disposition home or self-care (01) ==
LOC: C.ER 17:52
DX: R10.13 Epigastric pain (principal)

== ENCOUNTER → 2018-06-24 19:09 | Emergency (ER) | payer MEDICARE, OTHER ==
[2018-06-24 19:09] VITALS: BMI 16.6
== END | disposition left against medical advice (07) ==
LOC: C.ER 19:09
DX: Z02.89 Encounter for other administrative examinations (principal); M54.9 Dorsalgia, unspecified

== ENCOUNTER → 2018-06-26 13:47 | Emergency (ER) | payer MEDICARE, OTHER ==
[2018-06-26 13:47] VITALS: BMI 16.6
== END | disposition left against medical advice (07) ==
LOC: C.ER 13:47
DX: Z02.89 Encounter for other administrative examinations (principal); M79.606 Pain in leg, unspecified

== ENCOUNTER → 2018-06-27 19:17 | Emergency (ER) | payer MEDICARE, OTHER ==
[2018-06-27 19:17] VITALS: BMI 16.6
== END | disposition left against medical advice (07) ==
LOC: C.ER 19:17
DX: Z02.89 Encounter for other administrative examinations (principal); M79.606 Pain in leg, unspecified

== ENCOUNTER → 2018-07-03 15:31 | Emergency (ER) | payer MEDICARE, OTHER ==
[2018-07-03 15:31] VITALS: BMI 16.6
== END | disposition left against medical advice (07) ==
LOC: C.ER 15:31
DX: Z02.89 Encounter for other administrative examinations (principal); M79.604 Pain in right leg

== ENCOUNTER 2018-07-05 19:22 | Emergency (ER) | payer MEDICARE, OTHER ==
[2018-07-05 19:22] VITALS: BMI 16.6
[2018-07-05 19:55] VITALS: BP 124/70; PULSE 70; RESP 19; TEMP 97.8; O2SAT 95
--- NOTE | 2018-07-05 21:02 | C.PDOC ---
History Of Present Illness 48 year old male presents to the ER with a complaint of right upper thigh pain that he felt while running. Patient states "I think I pulled my hamstring" and is specifically requesting topical ointment. Denies calf tenderness, leg swelling, trauma, fever, back pain, chest pain, sob, weakness, or numbness. Time Seen by Provider: 07/05/18 19:56 Chief Complaint (Nursing): Lower Extremity Problem/Injury History Per: Patient History/Exam Limitations: no limitations Onset/Duration Of Symptoms: Hrs Current Symptoms Are (Timing): Still Present Recent travel outside of the [place]: No Past Medical History Reviewed: Historical Data, Nursing Documentation, Vital Signs Vital Signs: Last Vital Signs Temp 97.8 F 07/05/18 19:53 Pulse 70 07/05/18 19:53 Resp 19 07/05/18 19:53 BP 124/70 07/05/18 19:53 Pulse Ox 95 07/05/18 19:53 - Medical History PMH: Gastritis, Schizophrenia (pt denies) Denies: Chronic Kidney Disease Family History: States: Unknown Family Hx - Social History Hx Tobacco Use: No Hx Alcohol Use: No Hx Substance Use: No - Immunization History Hx Tetanus Toxoid Vaccination: No Hx Influenza Vaccination: No Hx Pneumococcal Vaccination: No Review Of Systems Constitutional: Negative for: Fever Musculoskeletal: Positive for: Leg Pain. Negative for: Back Pain, Other (Calf pain) Neurological: Negative for: Weakness, Numbness Physical Exam - Physical Exam Appears: Non-toxic, No Acute Distress, Unkempt Skin: Normal Color, Warm, Dry Head: Atraumatic, Normacephalic Eye(s): bilateral: Normal Inspection, EOMI Nose: Normal Oral Mucosa: Moist Neck: Normal ROM, Supple Chest: Symmetrical Respiratory: No Accessory Muscle Use Extremity: Normal ROM (x4), No Calf Tenderness, Capillary Refill (<2 seconds), No Swelling Pulses: Left Dorsalis Pedis: Normal, Right Dorsalis Pedis: Normal Neurological/Psych: Oriented x3, Normal Speech, Normal Motor, Normal Sensation Gait: Steady ED Course And Treatment O2 Sat by Pulse Oximetry: 95 (Room air) Pulse Ox Interpretation: Normal Progress Note: Patient was offered further imaging but declines, he is requesting an Rx and to be discharged. Patient is resting comfortably in no acute distress and is able to ambulate with a steady gait, will discharge home with Rx and instructions to follow up with PMD. Disposition - Disposition Disposition: HOME/ ROUTINE Disposition Time: 20:57 Condition: STABLE Additional Instructions: Rest and ice the area. Follow up with your doctor tomorrow. Prescriptions: Menthol [Icy Hot Pain Relieving] 1 apful TP BID PRN #1 gel..gram. 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 - Scribe Statement The provider has reviewed the documentation as recorded by the Scribjayce Knight All medical record entries made by the Ashokibjayce were at my direction and personally dictated by me. I have reviewed the chart and agree that the record accurately reflects my personal performance of the history, physical exam, medical decision making, and the department course for this patient. I have also personally directed, reviewed, and agree with the discharge instructions and disposition.
== END 2018-07-05 21:19 | disposition home or self-care (01) ==
LOC: C.ER 19:22
DX: S86.911A Strain of unspecified muscle(s) and tendon(s) at lower leg level, right leg, initial encounter (principal); X50.0XXA Overexertion from strenuous movement or load, initial encounter; Y93.02 Activity, running; Y92.9 Unspecified place or not applicable

== ENCOUNTER 2018-07-08 18:33 | Emergency (ER) | payer MEDICARE, OTHER ==
[2018-07-08 18:33] VITALS: BMI 16.6
[2018-07-08 18:50] VITALS: BP 114/70; PULSE 66; RESP 20; TEMP 97.5; O2SAT 98
== END 2018-07-08 18:46 | disposition left against medical advice (07) ==
LOC: C.ER 18:33
DX: Z02.89 Encounter for other administrative examinations (principal); R10.9 Unspecified abdominal pain

== ENCOUNTER 2018-07-09 20:47 | Emergency (ER) | payer MEDICARE, OTHER ==
[2018-07-09 20:47] VITALS: BMI 16.6
== END 2018-07-09 21:15 | disposition left against medical advice (07) ==
LOC: C.ER 20:47
DX: Z02.89 Encounter for other administrative examinations (principal); R10.9 Unspecified abdominal pain

== ENCOUNTER 2018-07-10 19:32 | Emergency (ER) | payer MEDICARE, OTHER ==
[2018-07-10 19:32] VITALS: BMI 16.6
[2018-07-10 19:53] VITALS: BP 129/86; PULSE 67; RESP 20; TEMP 98; O2SAT 99
== END 2018-07-10 20:30 | disposition left against medical advice (07) ==
LOC: C.ER 19:32
DX: Z02.89 Encounter for other administrative examinations (principal); R10.9 Unspecified abdominal pain

== ENCOUNTER 2018-07-11 18:22 | Emergency (ER) | payer MEDICARE, OTHER ==
[2018-07-11 18:25] VITALS: BMI 14.9
[2018-07-11 18:27] VITALS: BP 134/74; PULSE 68; RESP 20; TEMP 98.9; O2SAT 97
== END 2018-07-11 18:32 | disposition left against medical advice (07) ==
LOC: C.ER 18:22
DX: Z02.89 Encounter for other administrative examinations (principal); R10.9 Unspecified abdominal pain

== ENCOUNTER → 2018-07-13 17:17 | Emergency (ER) | payer MEDICARE, OTHER ==
[2018-07-13 17:17] VITALS: BMI 14.9
== END | disposition left against medical advice (07) ==
LOC: C.ER 17:17
DX: Z02.89 Encounter for other administrative examinations (principal); H92.09 Otalgia, unspecified ear

== ENCOUNTER 2018-07-15 19:11 | Emergency (ER) | payer MEDICARE, OTHER ==
[2018-07-15 19:11] VITALS: BMI 14.9
[2018-07-15 19:23] VITALS: BP 125/85; PULSE 68; RESP 20; TEMP 98; O2SAT 99
== END 2018-07-15 19:29 | disposition left against medical advice (07) ==
LOC: C.ER 19:11
DX: Z02.89 Encounter for other administrative examinations (principal); M79.675 Pain in left toe(s)

== ENCOUNTER 2018-07-16 19:50 | Emergency (ER) | payer MEDICARE, OTHER ==
[2018-07-16 19:51] VITALS: BMI 14.9
[2018-07-16 20:07] VITALS: BP 119/73; PULSE 61; RESP 16; TEMP 97.9; O2SAT 98
--- NOTE | 2018-07-16 20:28 | C.PDOC ---
History Of Present Illness 48 yo male , well known to ED staff, comes in for evaluation of epigastric pain " after had pizza". Multiple previous visits due to same complaints. Pt also reports, left small toe pain since early today, denies known trauma or injury. Ambulate to Ed with stable gait, not in any apparent distress. Noted drinking water, tolerate well. Time Seen by Provider: 07/16/18 20:08 Chief Complaint (Nursing): Medical Clearance History Per: Patient Past Medical History Reviewed: Historical Data, Nursing Documentation, Vital Signs Vital Signs: Last Vital Signs Temp 97.9 F 07/16/18 20:04 Pulse 61 07/16/18 20:04 Resp 16 07/16/18 20:04 BP 119/73 07/16/18 20:04 Pulse Ox 98 07/16/18 20:04 - Medical History PMH: Gastritis, Schizophrenia (pt denies) Denies: Chronic Kidney Disease Family History: States: Unknown Family Hx - Social History Hx Tobacco Use: No Hx Alcohol Use: No Hx Substance Use: No - Immunization History Hx Tetanus Toxoid Vaccination: No Hx Influenza Vaccination: No Hx Pneumococcal Vaccination: No Review Of Systems Except As Marked, All Systems Reviewed And Found Negative. Constitutional: Negative for: Fever, Chills ENT: Negative for: Throat Pain Cardiovascular: Negative for: Chest Pain, Palpitations, Edema, Light Headedness Respiratory: Negative for: Cough, Shortness of Breath, Wheezing Gastrointestinal: Positive for: Abdominal Pain. Negative for: Nausea, Vomiting, Diarrhea, Melena, Hematochezia, Hematemesis Musculoskeletal: Positive for: Foot Pain Skin: Negative for: Rash, Lesions Neurological: Negative for: Weakness, Numbness, Headache Physical Exam - Physical Exam Appears: Well, Non-toxic, No Acute Distress Skin: Normal Color, Warm, Dry, No Rash Head: Normacephalic Eye(s): bilateral: PERRL Nose: No Discharge Oral Mucosa: Moist, No Drooling Tongue: Normal Appearing Lips: Normal Appearing Throat: No Erythema, No Drooling Neck: Trachea Midline, Supple Cardiovascular: Rhythm Regular Respiratory: No Decreased Breath Sounds, No Accessory Muscle Use, No Stridor, No Wheezing Gastrointestinal/Abdominal: Soft, No Tenderness, No Distention, No Guarding, No Rebound Back: No CVA Tenderness Extremity: Normal ROM (B/L LEs), No Tenderness, No Deformity, No Swelling Extremity: Bilateral: Atraumatic Neurological/Psych: Oriented x3, Normal Speech, Normal Motor, Normal Sensation, Normal Reflexes ED Course And Treatment O2 Sat by Pulse Oximetry: 98 Progress Note: Eloped from ED, right after my evaluation. Disposition - Disposition Disposition: ELOPEMENT - ER ONLY Disposition Time: 20:26 Condition: STABLE Forms: [facility] (Syriac) - Clinical Impression Clinical Impression: Chronic pain, Abdominal discomfort, Toe pain
== END 2018-07-16 20:26 | disposition left against medical advice (07) ==
LOC: C.ER 19:50
DX: R10.9 Unspecified abdominal pain (principal); M79.675 Pain in left toe(s); G89.29 Other chronic pain

== ENCOUNTER → 2018-07-18 18:47 | Emergency (ER) | payer MEDICARE, OTHER ==
[2018-07-18 18:48] VITALS: BMI 14.9
== END | disposition left against medical advice (07) ==
LOC: C.ER 18:47
DX: Z02.89 Encounter for other administrative examinations (principal); T78.40XA Allergy, unspecified, initial encounter

== ENCOUNTER 2018-07-20 18:05 | Emergency (ER) | payer MEDICARE, OTHER ==
[2018-07-20 18:05] VITALS: BMI 14.9
[2018-07-20 18:26] VITALS: BP 129/78; PULSE 76; RESP 20; TEMP 98.4; O2SAT 96
== END 2018-07-20 18:28 | disposition left against medical advice (07) ==
LOC: C.ER 18:05
DX: Z02.89 Encounter for other administrative examinations (principal); R10.9 Unspecified abdominal pain

== ENCOUNTER → 2018-07-23 20:00 | Emergency (ER) | payer MEDICARE, OTHER ==
[2018-07-23 20:00] VITALS: BMI 14.9
== END | disposition left against medical advice (07) ==
LOC: C.ER 20:00
DX: Z02.89 Encounter for other administrative examinations (principal); R10.9 Unspecified abdominal pain

== ENCOUNTER → 2018-07-25 17:36 | Emergency (ER) | payer MEDICARE, OTHER ==
[2018-07-25 17:36] VITALS: BMI 14.9
== END | disposition left against medical advice (07) ==
LOC: C.ER 17:36
DX: Z02.89 Encounter for other administrative examinations (principal); R12 Heartburn

== ENCOUNTER → 2018-07-29 19:08 | Emergency (ER) | payer MEDICARE, OTHER ==
[2018-07-29 19:09] VITALS: BMI 14.9
== END | disposition left against medical advice (07) ==
LOC: C.ER 19:08
DX: Z02.89 Encounter for other administrative examinations (principal); R10.9 Unspecified abdominal pain

== ENCOUNTER 2018-08-01 17:59 | Emergency (ER) | payer MEDICARE, OTHER ==
[2018-08-01 17:59] VITALS: BMI 14.9
[2018-08-01 18:03] VITALS: BP 137/78; PULSE 66; RESP 18; TEMP 97.9; O2SAT 98
== END 2018-08-01 18:01 | disposition left against medical advice (07) ==
LOC: C.ER 17:59
DX: Z02.89 Encounter for other administrative examinations (principal); M79.604 Pain in right leg

== ENCOUNTER → 2018-08-04 09:28 | Emergency (ER) | payer MEDICARE, OTHER ==
[2018-08-04 09:28] VITALS: BMI 14.9
== END | disposition left against medical advice (07) ==
LOC: C.ER 09:28
DX: Z02.89 Encounter for other administrative examinations (principal); H57.10 Ocular pain, unspecified eye

== ENCOUNTER 2018-08-05 15:24 | Emergency (ER) | payer MEDICARE, OTHER ==
[2018-08-05 15:24] VITALS: BMI 14.9
== END 2018-08-05 15:47 | disposition left against medical advice (07) ==
LOC: C.ER 15:24
DX: Z02.89 Encounter for other administrative examinations (principal); R52 Pain, unspecified

== ENCOUNTER → 2018-08-06 16:26 | Emergency (ER) | payer MEDICARE, OTHER ==
[2018-08-06 16:26] VITALS: BMI 14.9
== END | disposition left against medical advice (07) ==
LOC: C.ER 16:26
DX: Z02.89 Encounter for other administrative examinations (principal); R10.9 Unspecified abdominal pain

== ENCOUNTER 2018-08-08 10:46 | Emergency (ER) | payer MEDICARE, OTHER ==
[2018-08-08 10:46] VITALS: BMI 14.9
[2018-08-08 10:57] VITALS: BP 125/88; PULSE 65; RESP 18; TEMP 98; O2SAT 97
--- NOTE | 2018-08-08 11:28 | C.PDOC ---
History Of Present Illness PATIENT LEFT PRIOR TO BEING EVALUATED. Time Seen by Provider: 08/08/18 11:01 Chief Complaint (Nursing): Lower Extremity Problem/Injury Past Medical History Reviewed: Historical Data, Nursing Documentation, Vital Signs Vital Signs: Last Vital Signs Temp 98 F 08/08/18 10:55 Pulse 65 08/08/18 10:55 Resp 18 08/08/18 10:55 BP 125/88 08/08/18 10:55 Pulse Ox 97 08/08/18 10:55 - Medical History PMH: Gastritis, Schizophrenia (as per previous triage, pt denies.) Family History: States: Unknown Family Hx - Social History Hx Tobacco Use: No Hx Alcohol Use: No Hx Substance Use: No - Immunization History Hx Tetanus Toxoid Vaccination: No Hx Influenza Vaccination: No Hx Pneumococcal Vaccination: No Review Of Systems Review Of Systems: ROS cannot be obtained secondary to pt's inabilty to answer questions. (LEFT PRIOR TO BEING EVALUATED) ED Course And Treatment O2 Sat by Pulse Oximetry: 97 (RA) Pulse Ox Interpretation: Normal Disposition - Disposition Disposition Time: 13:22 Condition: UNKNOWN Forms: [employer] (Moroccan) - Clinical Impression Clinical Impression: Eloped from emergency department - PA / SYSTEM SUPPORT TECHNICIAN / Resident Statement MD/DO has reviewed & agrees with the documentation as recorded. - Scribe Statement The provider has reviewed the documentation as recorded by the Ashokibjayce Wilson All medical record entries made by the Ashokibjayce were at my direction and personally dictated by me. I have reviewed the chart and agree that the record accurately reflects my personal performance of the history, physical exam, medical decision making, and the department course for this patient. I have also personally directed, reviewed, and agree with the discharge instructions and disposition.
== END 2018-08-08 11:01 | disposition left against medical advice (07) ==
LOC: C.ER 10:46
DX: Z02.89 Encounter for other administrative examinations (principal); M79.606 Pain in leg, unspecified

== ENCOUNTER 2018-08-10 09:17 | Emergency (ER) | payer MEDICARE, OTHER ==
[2018-08-10 09:17] VITALS: BMI 14.9
[2018-08-10 09:35] VITALS: BP 100/67; PULSE 76; RESP 20; TEMP 98.4; O2SAT 97
--- NOTE | 2018-08-10 09:58 | C.PDOC ---
History Of Present Illness 48 y/o male presents to the ER complaining of left ear discomfort which began today. Patient states that he wants to have earwax removed. Denies having fever, chills, and other complaint at this time. Of note, patient is well known because of his almost daily visits to [facility] ER for various mild complaints. Time Seen by Provider: 08/10/18 09:56 Chief Complaint (Nursing): ENT Problem History Per: Patient History/Exam Limitations: None Onset/Duration Of Symptoms: Hrs Current Symptoms Are (Timing): Still Present Severity: Moderate Past Medical History Reviewed: Historical Data, Nursing Documentation, Vital Signs Vital Signs: Last Vital Signs Temp 98.4 F 08/10/18 09:32 Pulse 76 08/10/18 09:32 Resp 20 08/10/18 09:32 BP 100/67 08/10/18 09:32 Pulse Ox 97 08/10/18 09:32 - Medical History PMH: Gastritis, Schizophrenia (as per previous triage, pt denies.) Other Surgeries: Hx of surgeries Family History: States: No Known Family Hx - Social History Hx Tobacco Use: No Hx Alcohol Use: No Hx Substance Use: No - Immunization History Hx Tetanus Toxoid Vaccination: No Hx Influenza Vaccination: No Hx Pneumococcal Vaccination: No Review Of Systems Except As Marked, All Systems Reviewed And Found Negative. Constitutional: Negative for: Fever, Chills ENT: Positive for: Ear Pain (left ear pain) Physical Exam - Physical Exam Appears: Non-toxic, No Acute Distress Skin: Normal Color, Warm, Dry Head: Atraumatic, Normacephalic Eye(s): bilateral: Normal Inspection Ear(s): Bilateral: Other (ear wax bilaterally, no otitis externa, negative TM's) Nose: Normal Oral Mucosa: Moist Neck: Supple Chest: Symmetrical Neurological/Psych: Oriented x3, Normal Speech ED Course And Treatment O2 Sat by Pulse Oximetry: 97 Medical Decision Making Medical Decision Making: cerumen accumulation, no impaction, no otitis externa ? munchhausen's- almost daily ED visits reassured Disposition Doctor Will See Patient In The: Office Counseled Patient/Family Regarding: Studies Performed, Diagnosis - Disposition Referrals: [facility] [Outside] [facility] [Outside] [facility] [Outside] [facility] [Outside] Disposition: HOME/ ROUTINE Disposition Time: 09:58 Prescriptions: Carbamide Peroxide [Debrox 15 Ml] 3 drop OT HS #1 bottle Forms: [facility] (Divehi) - Clinical Impression Clinical Impression: Excess ear wax - Scribe Statement The provider has reviewed the documentation as recorded by the Scribe Samreen Whatley Provider Attestation: All medical record entries made by the Scribe were at my direction and personally dictated by me. I have reviewed the chart and agree that the record accurately reflects my personal performance of the history, physical exam, medical decision making, and the department course for this patient. I have also personally directed, reviewed, and agree with the discharge instructions and disposition.
== END 2018-08-10 10:19 | disposition home or self-care (01) ==
LOC: C.ER 09:17
DX: H61.20 Impacted cerumen, unspecified ear (principal)

== ENCOUNTER 2018-08-14 09:52 | Emergency (ER) | payer MEDICARE, OTHER ==
[2018-08-14 09:52] VITALS: BMI 14.9
[2018-08-14 10:01] VITALS: BP 122/79; PULSE 84; RESP 18; TEMP 98.2; O2SAT 98
== END 2018-08-14 10:10 | disposition left against medical advice (07) ==
LOC: C.ER 09:52
DX: Z02.89 Encounter for other administrative examinations (principal); M54.5 Low back pain

== ENCOUNTER 2018-08-16 16:04 | Emergency (ER) | payer MEDICARE, OTHER ==
[2018-08-16 16:05] VITALS: BMI 14.9
== END 2018-08-16 16:21 | disposition left against medical advice (07) ==
LOC: C.ER 16:04
DX: Z02.89 Encounter for other administrative examinations (principal); M79.606 Pain in leg, unspecified

== ENCOUNTER 2018-08-17 12:08 | Emergency (ER) | payer MEDICARE, OTHER ==
[2018-08-17 12:08] VITALS: BMI 14.9
== END 2018-08-17 12:16 | disposition left against medical advice (07) ==
LOC: C.ER 12:08
DX: Z02.89 Encounter for other administrative examinations (principal); M54.9 Dorsalgia, unspecified

== ENCOUNTER → 2018-08-18 17:02 | Emergency (ER) | payer MEDICARE, OTHER ==
[2018-08-18 17:03] VITALS: BMI 14.9
== END | disposition left against medical advice (07) ==
LOC: C.ER 17:02
DX: Z02.89 Encounter for other administrative examinations (principal); M54.9 Dorsalgia, unspecified

== ENCOUNTER → 2018-08-22 10:47 | Emergency (ER) | payer MEDICARE, OTHER ==
[2018-08-22 10:48] VITALS: BMI 14.9
== END | disposition left against medical advice (07) ==
LOC: C.ER 10:47
DX: Z02.89 Encounter for other administrative examinations (principal); M54.9 Dorsalgia, unspecified

== ENCOUNTER 2018-08-25 17:24 | Emergency (ER) | payer MEDICARE, OTHER ==
[2018-08-25 17:25] VITALS: BMI 14.9
== END 2018-08-25 18:41 | disposition left against medical advice (07) ==
LOC: C.ER 17:24
DX: Z02.89 Encounter for other administrative examinations (principal); M54.9 Dorsalgia, unspecified

== ENCOUNTER 2018-08-26 16:42 | Emergency (ER) | payer MEDICARE, OTHER ==
[2018-08-26 16:43] VITALS: BMI 14.9
[2018-08-26 16:58] VITALS: BP 120/84; PULSE 72; RESP 20; TEMP 97.4; O2SAT 100
== END 2018-08-26 17:08 | disposition left against medical advice (07) ==
LOC: C.ER 16:42
DX: Z02.89 Encounter for other administrative examinations (principal); M54.5 Low back pain

== ENCOUNTER 2018-08-27 16:08 | Emergency (ER) | payer MEDICARE, OTHER ==
[2018-08-27 16:30] VITALS: BMI 17.5
[2018-08-27 16:32] VITALS: BP 135/82; PULSE 88; RESP 18; TEMP 98.3; O2SAT 100
== END 2018-08-27 16:29 | disposition left against medical advice (07) ==
LOC: C.ER 16:08
DX: Z02.89 Encounter for other administrative examinations (principal); M54.9 Dorsalgia, unspecified

== ENCOUNTER → 2018-08-29 18:50 | Emergency (ER) | payer MEDICARE, OTHER ==
[2018-08-29 18:50] VITALS: BMI 17.5
== END | disposition left against medical advice (07) ==
LOC: C.ER 18:50
DX: Z02.89 Encounter for other administrative examinations (principal); M54.9 Dorsalgia, unspecified

== ENCOUNTER 2018-09-02 17:50 | Emergency (ER) | payer MEDICARE, OTHER ==
[2018-09-02 17:51] VITALS: BMI 17.5
[2018-09-02 18:11] VITALS: BP 115/74; PULSE 78; RESP 18; TEMP 97.3; O2SAT 99
== END 2018-09-02 18:09 | disposition left against medical advice (07) ==
LOC: C.ER 17:50
DX: Z02.89 Encounter for other administrative examinations (principal); M54.9 Dorsalgia, unspecified

== ENCOUNTER → 2018-09-03 19:14 | Emergency (ER) | payer MEDICARE, OTHER ==
[2018-09-03 19:14] VITALS: BMI 17.5
== END | disposition left against medical advice (07) ==
LOC: C.ER 19:14
DX: Z02.89 Encounter for other administrative examinations (principal); M54.9 Dorsalgia, unspecified

== ENCOUNTER 2018-09-04 17:39 | Emergency (ER) | payer MEDICARE, OTHER ==
[2018-09-04 17:39] VITALS: BMI 17.5
[2018-09-04 18:16] VITALS: BP 130/85; PULSE 77; RESP 18; TEMP 97.8; O2SAT 98
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
== END 2018-09-04 18:25 | disposition home or self-care (01) ==
LOC: C.ER 17:39
DX: M54.5 Low back pain (principal)

== ENCOUNTER 2018-09-06 18:00 | Emergency (ER) | payer MEDICARE, OTHER ==
[2018-09-06 18:00] VITALS: BMI 17.5
[2018-09-06 18:34] VITALS: BP 155/77; PULSE 80; RESP 18; TEMP 98.2; O2SAT 99
--- NOTE | 2018-09-06 19:15 | C.PDOC ---
History Of Present Illness 48 y/o male presents to the ED complaining of a sore throat and mild cough since last night. He denies any fever or chills. No difficulty breathing or swallowing. Time Seen by Provider: 09/06/18 19:00 Chief Complaint (Nursing): ENT Problem History Per: Patient History/Exam Limitations: None Onset/Duration Of Symptoms: Days Current Symptoms Are (Timing): Still Present Past Medical History Reviewed: Historical Data, Nursing Documentation, Vital Signs Vital Signs: Last Vital Signs Temp 98.2 F 09/06/18 18:33 Pulse 80 09/06/18 18:33 Resp 18 09/06/18 18:33 BP 155/77 H 09/06/18 18:33 Pulse Ox 99 09/06/18 18:33 - Medical History PMH: Gastritis, Schizophrenia (as per previous triage, pt denies.) Family History: States: Unknown Family Hx - Social History Hx Tobacco Use: No Hx Alcohol Use: No Hx Substance Use: No - Immunization History Hx Tetanus Toxoid Vaccination: No Hx Influenza Vaccination: No Hx Pneumococcal Vaccination: No Review Of Systems Except As Marked, All Systems Reviewed And Found Negative. Constitutional: Negative for: Fever, Chills ENT: Positive for: Throat Pain Cardiovascular: Negative for: Chest Pain Respiratory: Positive for: Cough. Negative for: Shortness of Breath, Sputum, Wheezing Gastrointestinal: Negative for: Vomiting, Abdominal Pain, Diarrhea Neurological: Negative for: Weakness, Headache Physical Exam - Physical Exam Appears: Non-toxic, No Acute Distress Skin: Normal Color, Warm, Dry Head: Atraumatic, Normacephalic Eye(s): bilateral: Normal Inspection, PERRL, EOMI Nose: Normal, No Discharge Oral Mucosa: Moist Throat: Erythema (pharyngeal erythema), No Exudate Neck: Normal ROM, Supple Chest: Symmetrical Cardiovascular: Rhythm Regular, No Murmur Respiratory: Normal Breath Sounds, No Accessory Muscle Use, No Rhonchi, No Wheezing Extremity: Bilateral: Atraumatic, Normal Color And Temperature Pulses: Left Radial: Normal, Right Radial: Normal Neurological/Psych: Oriented x3 ED Course And Treatment O2 Sat by Pulse Oximetry: 99 (RA) Pulse Ox Interpretation: Normal Progress Note: Patient started on PO Amoxicillin, given PO motrin for pain. Plan is to discharge home with antibiotic and motrin. Disposition - Disposition Disposition: HOME/ ROUTINE Disposition Time: 19:13 Condition: STABLE Additional Instructions: Follow up with your PMD within 1-2 days. Return to ED if feel worse. 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 - Scribe Statement The provider has reviewed the documentation as recorded by the Scribjayce Longoria All medical record entries made by the Ashokibjayce were at my direction and personally dictated by me. I have reviewed the chart and agree that the record accurately reflects my personal performance of the history, physical exam, medical decision making, and the department course for this patient. I have also personally directed, reviewed, and agree with the discharge instructions and disposition.
== END 2018-09-06 19:50 | disposition home or self-care (01) ==
LOC: C.ER 18:00
DX: J02.9 Acute pharyngitis, unspecified (principal)

== ENCOUNTER 2018-09-09 17:32 | Emergency (ER) | payer MEDICARE, OTHER ==
[2018-09-09 17:32] VITALS: BMI 17.5
[2018-09-09 17:43] VITALS: BP 148/73; PULSE 68; RESP 20; TEMP 98; O2SAT 100
--- NOTE | 2018-09-09 18:09 | C.PDOC ---
History Of Present Illness 48 y/o male presents to the ER complaining of cramping pain to the right calf which began while he was running in the morning today. Patient states that he noticed some swelling. Denies having fever, chills, nausea, and vomiting. Of note, patient is well known to ER because he has visited [facility] ER and [place] [facility] 8 times in the past 1 month. Time Seen by Provider: 09/09/18 18:03 Chief Complaint (Nursing): Lower Extremity Problem/Injury History Per: Patient History/Exam Limitations: no limitations Onset/Duration Of Symptoms: Hrs Current Symptoms Are (Timing): Still Present Severity: Moderate Past Medical History Reviewed: Historical Data, Nursing Documentation, Vital Signs Vital Signs: Last Vital Signs Temp 98 F 09/09/18 17:41 Pulse 68 09/09/18 17:41 Resp 20 09/09/18 17:41 BP 148/73 09/09/18 17:41 Pulse Ox 100 09/09/18 17:41 - Medical History PMH: Gastritis, Schizophrenia (as per previous triage, pt denies.) Other Surgeries: Hx of surgeries Family History: States: No Known Family Hx - Social History Hx Tobacco Use: No Hx Alcohol Use: No Hx Substance Use: No - Immunization History Hx Tetanus Toxoid Vaccination: No Hx Influenza Vaccination: No Hx Pneumococcal Vaccination: No Review Of Systems Except As Marked, All Systems Reviewed And Found Negative. Constitutional: Negative for: Fever, Chills Gastrointestinal: Negative for: Nausea, Vomiting Musculoskeletal: Positive for: Other (right calf pain) Physical Exam - Physical Exam Appears: Non-toxic, No Acute Distress Skin: Normal Color, Warm, Dry Head: Atraumatic, Normacephalic Eye(s): bilateral: Normal Inspection Nose: Normal Oral Mucosa: Moist Neck: Supple Chest: Symmetrical Cardiovascular: Rhythm Regular Respiratory: Normal Breath Sounds, No Rales, No Rhonchi, No Wheezing Extremity: Normal ROM, No Calf Tenderness, No Swelling Neurological/Psych: Oriented x3, Normal Speech ED Course And Treatment O2 Sat by Pulse Oximetry: 100 (RA) Pulse Ox Interpretation: Normal Medical Decision Making Medical Decision Making: Plan: --Tylenol PO Updates: Patient has been discharged with prescription for Motrin. Disposition Counseled Patient/Family Regarding: Need For Followup - Disposition Disposition: HOME/ ROUTINE Disposition Time: 18:06 Condition: STABLE Prescriptions: Ibuprofen [Motrin] 600 mg PO TID #15 tab Instructions: Muscle Spasms (DC) Forms: General Discharge Instructions, [facility] (Telugu) - POA Present On Arrival: None - Clinical Impression Clinical Impression: Muscle spasm of right calf - Scribe Statement The provider has reviewed the documentation as recorded by the Ashokibe Samreen Whatley Provider Attestation: All medical record entries made by the Ashokibe were at my direction and personally dictated by me. I have reviewed the chart and agree that the record accurately reflects my personal performance of the history, physical exam, medical decision making, and the department course for this patient. I have also personally directed, reviewed, and agree with the discharge instructions and disposition.
== END 2018-09-09 18:31 | disposition home or self-care (01) ==
LOC: C.ER 17:32
DX: M62.831 Muscle spasm of calf (principal)

== ENCOUNTER 2018-09-11 15:38 | Emergency (ER) | payer MEDICARE, OTHER ==
[2018-09-11 15:53] VITALS: BMI 20.8
[2018-09-11 15:56] VITALS: BP 129/79; PULSE 71; RESP 18; TEMP 98.2; O2SAT 98
--- NOTE | 2018-09-11 17:01 | C.PDOC ---
History Of Present Illness 48 year old male presents to the ED complaining of chronic right calf pain. Patient has multiple ER visits this month between [facility] and [facility] with same presentation. Denies any new trauma prior to ED visits 09/10. R CALF PAIN, CHRONIC. MULT ER VISITS JUST THIS MONTH BETWEEN [facility] AND [facility] FOR SAME. NO NEW TRAUMA SINCE PRIOR ER VISITS 09/10. Time Seen by Provider: 09/11/18 16:56 Chief Complaint (Nursing): Lower Extremity Problem/Injury History Per: Patient History/Exam Limitations: no limitations Onset/Duration Of Symptoms: Days Current Symptoms Are (Timing): Still Present Past Medical History Reviewed: Historical Data, Nursing Documentation, Vital Signs Vital Signs: Last Vital Signs Temp 98.2 F 09/11/18 15:53 Pulse 71 09/11/18 15:53 Resp 18 09/11/18 15:53 BP 129/79 09/11/18 15:53 Pulse Ox 98 09/11/18 15:53 - Medical History PMH: Gastritis, Schizophrenia (as per previous triage, pt denies.) Other Surgeries: Hx of surgeries Family History: States: No Known Family Hx - Social History Hx Tobacco Use: No Hx Alcohol Use: No Hx Substance Use: No - Immunization History Hx Tetanus Toxoid Vaccination: No Hx Influenza Vaccination: No Hx Pneumococcal Vaccination: No Review Of Systems Except As Marked, All Systems Reviewed And Found Negative. Musculoskeletal: Positive for: Other (right calf pain) Neurological: Negative for: Weakness, Numbness Physical Exam - Physical Exam Appears: Non-toxic, No Acute Distress Skin: Warm, Dry, No Rash Head: Normacephalic Eye(s): bilateral: Normal Inspection Nose: Normal Oral Mucosa: Moist Neck: Supple Cardiovascular: Rhythm Regular Respiratory: No Rales, No Rhonchi, No Wheezing, Other (NARD) Extremity: Normal ROM, No Calf Tenderness, No Deformity, No Swelling Extremity: Bilateral: Atraumatic, Normal Color And Temperature, Normal ROM Neurological/Psych: Oriented x3, Normal Speech, Normal Motor, Normal Sensation, Normal Reflexes Gait: Steady ED Course And Treatment O2 Sat by Pulse Oximetry: 98 (RA) Pulse Ox Interpretation: Normal Medical Decision Making Medical Decision Making: Plan - Motrin 400mg PO Disposition Counseled Patient/Family Regarding: Diagnosis, Need For Followup - Disposition Referrals: [facility] [Outside] [facility] [Outside] Disposition: HOME/ ROUTINE Disposition Time: 16:59 Condition: GOOD Instructions: Chronic Pain (DC) Forms: [employer] [facility] (Norwegian) - Clinical Impression Clinical Impression: Chronic leg pain - Scribe Statement The provider has reviewed the documentation as recorded by the Scribe Nga Ponce All medical record entries made by the Ashokibe were at my direction and personally dictated by me. I have reviewed the chart and agree that the record accurately reflects my personal performance of the history, physical exam, medical decision making, and the department course for this patient. I have also personally directed, reviewed, and agree with the discharge instructions and disposition.
== END 2018-09-11 17:07 | disposition home or self-care (01) ==
LOC: C.ER 15:38
DX: M79.604 Pain in right leg (principal); G89.29 Other chronic pain

== ENCOUNTER → 2018-09-13 16:43 | Emergency (ER) | payer MEDICARE, OTHER ==
[2018-09-13 16:43] VITALS: BMI 20.8
== END | disposition left against medical advice (07) ==
LOC: C.ER 16:43
DX: Z02.89 Encounter for other administrative examinations (principal); J45.909 Unspecified asthma, uncomplicated

== ENCOUNTER 2018-09-18 08:59 | Emergency (ER) | payer MEDICARE, OTHER ==
[2018-09-18 08:59] VITALS: BMI 20.8
[2018-09-19] MEDS ORDERED: Naloxone 0.4 mg/ml Inj (Adult) ONE (07:43)
== END 2018-09-18 09:11 | disposition left against medical advice (07) ==
LOC: C.ER 08:59
DX: Z02.89 Encounter for other administrative examinations (principal); R10.9 Unspecified abdominal pain

== ENCOUNTER 2018-09-19 16:34 | Emergency (ER) | payer MEDICARE, OTHER ==
[2018-09-19 16:35] VITALS: BMI 20.8
[2018-09-19 16:39] VITALS: BP 128/80; PULSE 66; RESP 20; TEMP 97.9; O2SAT 100
== END 2018-09-19 16:45 | disposition left against medical advice (07) ==
LOC: C.ER 16:34
DX: Z02.89 Encounter for other administrative examinations (principal); M79.10 Myalgia, unspecified site

== ENCOUNTER 2018-09-24 17:03 | Emergency (ER) | payer MEDICARE, OTHER ==
[2018-09-24 17:04] VITALS: BMI 20.8
== END 2018-09-24 17:04 | disposition left against medical advice (07) ==
LOC: C.ER 17:03
DX: Z02.89 Encounter for other administrative examinations (principal); R10.9 Unspecified abdominal pain

== ENCOUNTER 2018-10-09 10:38 | Emergency (ER) | payer MEDICARE, OTHER ==
[2018-10-09 10:38] VITALS: BMI 20.8
[2018-10-09 10:54] VITALS: BP 114/77; PULSE 84; RESP 18; TEMP 97.4; O2SAT 100
--- NOTE | 2018-10-09 10:55 | C.PDOC ---
History Of Present Illness 48 y/o male pt presents to the ER c/o lower leg pain. Pt reports he was running when he had sudden pain to his lower leg. Pain feels sharp, worse when running and is similar to muscle spasm. Pt denies redness, swelling and injury to area. Time Seen by Provider: 10/09/18 10:46 Chief Complaint (Nursing): Lower Extremity Problem/Injury History Per: Patient History/Exam Limitations: no limitations Onset/Duration Of Symptoms: Hrs Current Symptoms Are (Timing): Still Present Severity: Moderate Pain Scale Rating Of: 5 Recent travel outside of the [place]: No Past Medical History Reviewed: Historical Data, Nursing Documentation, Vital Signs Vital Signs: Last Vital Signs Temp 97.4 F L 10/09/18 10:41 Pulse 84 10/09/18 10:41 Resp 18 10/09/18 10:41 BP 114/77 10/09/18 10:41 Pulse Ox 100 10/09/18 10:41 - Medical History PMH: Gastritis, Schizophrenia (as per previous triage, pt denies.) Surgical History: No Surg Hx Family History: States: Unknown Family Hx - Social History Hx Tobacco Use: No Hx Alcohol Use: No Hx Substance Use: No - Immunization History Hx Tetanus Toxoid Vaccination: No Hx Influenza Vaccination: No Hx Pneumococcal Vaccination: No Review Of Systems Except As Marked, All Systems Reviewed And Found Negative. Constitutional: Negative for: Other (injury ) Musculoskeletal: Positive for: Leg Pain (b/l). Negative for: Other (redness and swelling of b/l legs ) Physical Exam - Physical Exam Appears: Non-toxic, No Acute Distress Skin: Warm, Dry Head: Normacephalic Eye(s): bilateral: Normal Inspection, EOMI Oral Mucosa: Moist Throat: Normal Neck: Normal ROM, Supple Chest: Symmetrical Cardiovascular: Rhythm Regular Respiratory: Normal Breath Sounds Gastrointestinal/Abdominal: Soft, No Tenderness Extremity: Normal ROM (x4), No Tenderness, No Pedal Edema, No Calf Tenderness, Capillary Refill (<2), No Deformity, No Swelling Pulses: Left Dorsalis Pedis: Normal, Right Dorsalis Pedis: Normal Neurological/Psych: Oriented x3, Normal Speech, Normal Motor, Normal Sensation ED Course And Treatment O2 Sat by Pulse Oximetry: 100 (RA) Pulse Ox Interpretation: Normal Medical Decision Making Medical Decision Making: Impression: b/l leg pain; no signs of DVT Plans: -- pt given rx of robaxin to take at home. Reassess: On reassessment, patient is resting comfortably. Patient remains afebrile, with no bony tenderness, extremity numbness or weakness, or abdominal pain. Patient is ambulatory in the emergency department with no signs of discomfort. Patient was advised to follow up with physician/clinic in 1-2 days. Disposition Counseled Patient/Family Regarding: Diagnosis, Need For Followup, Rx Given - Disposition Referrals: Rosalina Perales MD [Staff Provider] - Disposition: HOME/ ROUTINE Disposition Time: 10:53 Condition: STABLE Prescriptions: Methocarbamol [Robaxin] 1,000 mg PO BID 5 Days tab Forms: [facility] (Bulgarian), General Discharge Instructions - POA Present On Arrival: None - Clinical Impression Clinical Impression: Leg pain, bilateral, Musculoskeletal leg pain - Scribe Statement The provider has reviewed the documentation as recorded by the Scribjayce Montez Do Provider Attestation: All medical record entries made by the Scribe were at my direction and perso eloisa dictated by me. I have reviewed the chart and agree that the record accurately reflects my personal performance of the history, physical exam, medical decision making, and the department course for this patient. I have also personally directed, reviewed, and agree with the discharge instructions and disposition.
== END 2018-10-09 11:03 | disposition home or self-care (01) ==
LOC: C.ER 10:38
DX: M79.662 Pain in left lower leg (principal); M79.661 Pain in right lower leg

== ENCOUNTER 2018-10-26 10:06 | Emergency (ER) | payer OTHER ==
[2018-10-26 10:09] VITALS: BMI 18.1
[2018-10-26 10:11] VITALS: RESP 18; TEMP 97.5
--- NOTE | 2018-10-26 10:15 | C.PDOC ---
History Of Present Illness Mr. Haile is a 48 year old male who presents today with complaints of sharp, non-radiating, constant 7/10 abdominal pain that began around 8 o'clock this morning after eating cake. Pain is worse with running and rolling over in bed. He admits to constipation. Denies ever having a similar pain. ROS POSITIVES: Abdominal pain, constipation NEGATIVES: Fever, chills, chest pain, SOB, nausea, vomiting, diarrhea, urinary symptoms. PMHx: Denies PSHx: Left Ear Surgery Allergies: NKDA SocialHx: Denies tobacco, EtoH, and illicit drug use Meds: Flexeril. Time Seen by Provider: 10/26/18 10:13 Chief Complaint (Nursing): GI Problem History Per: Patient Past Medical History Vital Signs: Last Vital Signs Temp 97.5 F L 10/26/18 10:09 Pulse 93 H 10/26/18 10:09 Resp 18 10/26/18 10:09 BP 116/77 10/26/18 10:09 Pulse Ox 100 10/26/18 10:09 - Medical History PMH: Gastritis, Schizophrenia (as per previous triage, pt denies.) Family History: States: Unknown Family Hx - Social History Hx Tobacco Use: No Hx Alcohol Use: No Hx Substance Use: No - Immunization History Hx Tetanus Toxoid Vaccination: No Hx Influenza Vaccination: No Hx Pneumococcal Vaccination: No Review Of Systems Except As Marked, All Systems Reviewed And Found Negative. (as per HPI) Physical Exam - Physical Exam Appears: Well, Non-toxic Skin: Normal Color, Warm Head: Atraumatic Nose: Normal Oral Mucosa: Moist Neck: Normal Lymphatic: Deferred Cardiovascular: Rhythm Regular Respiratory: Normal Breath Sounds Gastrointestinal/Abdominal: Bowel Sounds, Soft, Tenderness (Unreliable), No Mass, No Distention, No Guarding, No Rebound Back: No CVA Tenderness Extremity: No Tenderness, No Pedal Edema Neurological/Psych: Oriented x3, Normal Speech, Other (Odd Behavior, Confabulation, tangential, rapid speech. ) ED Course And Treatment O2 Sat by Pulse Oximetry: 100 Medical Decision Making Medical Decision Making: Abdominal Pain Likely 2/2 to Flatulence Will discharge home and ask patient to follow up at the [facility]. Disposition - Disposition Referrals: [facility] [Outside] Disposition: HOME/ ROUTINE Disposition Time: 10:42 Condition: GOOD Additional Instructions: Please follow up with your PCP within 2-3 days of discharge Instructions: Acute Abdomen (Belly Pain), Adult (DC), Constipation, Adult (DC) Forms: [employer] [facility] (Dominican) - Clinical Impression Clinical Impression: Abdominal pain
[2018-10-26 11:11] VITALS: BP 120/71; PULSE 75; O2SAT 98
== END 2018-10-26 11:12 | disposition home or self-care (01) ==
LOC: C.ER 10:06
DX: R10.9 Unspecified abdominal pain (principal)

== ENCOUNTER 2018-10-31 17:00 | Emergency (ER) | payer MEDICARE, OTHER ==
[2018-10-31 17:28] VITALS: BMI 24.0
[2018-10-31] MEDS ORDERED: Lidocaine 5% Patch TD STA (17:44)
[2018-10-31 17:46] VITALS: BP 146/65; PULSE 83; RESP 18; TEMP 97.1; O2SAT 99
--- NOTE | 2018-10-31 17:51 | C.PDOC ---
History Of Present Illness 48 y/o male c/o right leg pain. pain is chronic, it's from running as per patient. patent states pain is dull, constant. 01/05. Requesting a ligament. Time Seen by Provider: 10/31/18 17:39 Chief Complaint (Nursing): Lower Extremity Problem/Injury Past Medical History Vital Signs: Last Vital Signs Temp 97.1 F L 10/31/18 17:28 Pulse 83 10/31/18 17:28 Resp 18 10/31/18 17:28 BP 146/65 10/31/18 17:28 Pulse Ox 99 10/31/18 17:28 - Medical History PMH: Gastritis, Schizophrenia (as per previous triage, pt denies.) Family History: States: No Known Family Hx - Social History Hx Tobacco Use: No Hx Alcohol Use: No Hx Substance Use: No - Immunization History Hx Tetanus Toxoid Vaccination: No Hx Influenza Vaccination: No Hx Pneumococcal Vaccination: No ED Course And Treatment O2 Sat by Pulse Oximetry: 99 Disposition Counseled Patient/Family Regarding: Diagnosis, Need For Followup, Rx Given - Disposition Disposition: HOME/ ROUTINE Disposition Time: 17:47 Condition: STABLE Prescriptions: Methyl Salicylate/Menth/Camph [Bengay Ultra Strength Cream] 1 appl TP TID #1 tube Instructions: Muscle and Bone Pain (DC) Forms: [facility] (Samoan) - POA Present On Arrival: None - Clinical Impression Clinical Impression: Leg pain
[2018-10-31] MEDS ORDERED: Lidocaine 5% Patch TD ONE (17:54)
== END 2018-10-31 18:02 | disposition home or self-care (01) ==
LOC: C.ER 17:00
DX: M79.604 Pain in right leg (principal)

== ENCOUNTER 2018-11-04 16:26 | Emergency (ER) | payer OTHER ==
[2018-11-04 16:26] VITALS: BMI 24.0
[2018-11-04 16:51] VITALS: BP 129/71; PULSE 60; RESP 18; TEMP 97.9; O2SAT 100
[2018-11-04] MEDS ORDERED: Aluminum Hydroxide/Magnesium Hydroxide Susp (30 mL) PO STA (17:23)
[2018-11-04] MEDS ORDERED: Aluminum Hydroxide/Magnesium Hydroxide Susp (30 mL) ONE (17:36)
--- NOTE | 2018-11-04 17:41 | C.PDOC ---
History Of Present Illness 48 y/o male presents to the ER complaining of epigastric abdominal pain which began after he ate a hamburger at [employer]. Patient describes the pain as a burning sensation. Patient denies having fever, chills, nausea, vomiting, and diarrhea. Time Seen by Provider: 11/04/18 16:56 Chief Complaint (Nursing): Abdominal Pain History Per: Patient History/Exam Limitations: no limitations Onset/Duration Of Symptoms: Hrs Current Symptoms Are (Timing): Still Present Severity: Moderate Past Medical History Reviewed: Historical Data, Nursing Documentation, Vital Signs Vital Signs: Last Vital Signs Temp 97.9 F 11/04/18 16:49 Pulse 60 11/04/18 16:49 Resp 18 11/04/18 16:49 BP 129/71 11/04/18 16:49 Pulse Ox 100 11/04/18 16:49 - Medical History PMH: Gastritis, Schizophrenia (as per previous triage, pt denies.) Other Surgeries: Hx of surgeries Family History: States: No Known Family Hx - Social History Hx Tobacco Use: No Hx Alcohol Use: No Hx Substance Use: No - Immunization History Hx Tetanus Toxoid Vaccination: No Hx Influenza Vaccination: No Hx Pneumococcal Vaccination: No Review Of Systems Constitutional: Negative for: Fever, Chills Gastrointestinal: Positive for: Abdominal Pain. Negative for: Nausea, Vomiting, Diarrhea Physical Exam - Physical Exam Appears: Non-toxic, No Acute Distress Skin: Normal Color, Warm, Dry Head: Atraumatic, Normacephalic Eye(s): bilateral: Normal Inspection Nose: Normal Oral Mucosa: Moist Neck: Supple Chest: Symmetrical Cardiovascular: Rhythm Regular Respiratory: Normal Breath Sounds, No Rales, No Rhonchi, No Wheezing Gastrointestinal/Abdominal: Soft, No Tenderness, No Guarding, No Rebound Neurological/Psych: Oriented x3, Normal Speech ED Course And Treatment O2 Sat by Pulse Oximetry: 100 (RA) Pulse Ox Interpretation: Normal Medical Decision Making Medical Decision Making: Plan: --Maalox PO Disposition Counseled Patient/Family Regarding: Diagnosis, Need For Followup, Rx Given - Disposition Referrals: [facility] at [facility] [Outside] Disposition: HOME/ ROUTINE Disposition Time: 18:02 Condition: GOOD Additional Instructions: Stop eating [employer] and other greasy, fried foods. Follow up in medical clinic. Take Pepcid once a day if needed. Prescriptions: Famotidine [Pepcid] 20 mg PO DAILY #14 tab Instructions: Gastritis (DC) Forms: [facility] (Libyan), General Discharge Instructions - Clinical Impression Clinical Impression: Gastritis - PA / DATA PROCESSING MECHANIC / Resident Statement MD/DO has reviewed & agrees with the documentation as recorded. - Scribe Statement The provider has reviewed the documentation as recorded by the Neal Whatley Provider Attestation All medical record entries made by the Ashokibe were at my direction and personally dictated by me. I have reviewed the chart and agree that the record accurately reflects my personal performance of the history, physical exam, medical decision making, and the department course for this patient. I have also personally directed, reviewed, and agree with the discharge instructions and disposition.
== END 2018-11-04 18:00 | disposition home or self-care (01) ==
LOC: C.ER 16:26
DX: K29.70 Gastritis, unspecified, without bleeding (principal)

== ENCOUNTER 2018-11-12 17:49 | Emergency (ER) | payer OTHER ==
[2018-11-12 17:52] VITALS: BMI 19.5
[2018-11-12 17:54] VITALS: BP 131/80; PULSE 89; RESP 18; TEMP 98.3; O2SAT 98
--- NOTE | 2018-11-12 18:38 | C.PDOC ---
History Of Present Illness Patient is a 48 year old male who presents to the ED for evaluation of cold symptoms that include runny nose and nasal congestion since yesterday. Patient denies any high fever, headache, dizzinessm drooling, dysphagia, dyspnea, CP, SOB, wheezing, abd. pain, V/D, UTI sx. Ambulatory. Time Seen by Provider: 11/12/18 18:17 Chief Complaint (Nursing): Cough, Cold, Congestion History Per: Patient History/Exam Limitations: no limitations Onset/Duration Of Symptoms: Days (1) Current Symptoms Are (Timing): Still Present Location Of Pain: Sinus/es Associated Symptoms: Sinus Drainage, Nasal Congestion. denies: Fever, Cough, Other (dizziness or SOB) Recent travel outside of the [place]: No Additional History Per: Patient Past Medical History Reviewed: Historical Data, Nursing Documentation, Vital Signs Vital Signs: Last Vital Signs Temp 98.3 F 11/12/18 17:52 Pulse 89 11/12/18 17:52 Resp 18 11/12/18 17:52 BP 131/80 11/12/18 17:52 Pulse Ox 98 11/12/18 17:52 - Medical History PMH: Gastritis, Schizophrenia (as per previous triage, pt denies.) Surgical History: No Surg Hx Family History: States: No Known Family Hx - Social History Hx Tobacco Use: No Hx Alcohol Use: No Hx Substance Use: No - Immunization History Hx Tetanus Toxoid Vaccination: No Hx Influenza Vaccination: No Hx Pneumococcal Vaccination: No Review Of Systems Constitutional: Negative for: Fever ENT: Positive for: Nose Discharge, Nose Congestion Respiratory: Negative for: Cough, Shortness of Breath Neurological: Negative for: Headache, Dizziness Physical Exam - Physical Exam Appears: Well, Non-toxic, No Acute Distress Skin: Normal Color, Warm, Dry, No Rash, No Ecchymosis Head: Normacephalic Eye(s): bilateral: PERRL Nose: Discharge (bilateral clear) Oral Mucosa: Moist Throat: No Erythema, No Exudate, No Drooling Neck: Supple Cardiovascular: Rhythm Regular Respiratory: No Decreased Breath Sounds, No Accessory Muscle Use, No Stridor, No Wheezing Extremity: Normal ROM, No Deformity Neurological/Psych: Oriented x3, Normal Speech ED Course And Treatment O2 Sat by Pulse Oximetry: 98 (on RA) Pulse Ox Interpretation: Normal Progress Note: On re-eval, pt is afebrile, hemodynamicaly stable. PulsEOx 98% RA. ENT: no acute findings. Neck: Supple, (-) meningeal sign. Lungs: CTA B/L, BS equal B/L. Abd: benign. Pt has clinical findings c/w viral illness. pt advised. ref. to f/u with Ped in 2-3 dyas for re-evaluation. Return if any worsening or new changes. Disposition Counseled Patient/Family Regarding: Diagnosis, Need For Followup, Rx Given - Disposition Referrals: [facility] at [facility] [Outside] Disposition: HOME/ ROUTINE Disposition Time: 18:36 Condition: STABLE Prescriptions: Loratadine [Claritin] 10 mg PO DAILY #10 tab Oxymetazoline 0.05% [Oxymetazoline HCl 30 Ml] 1 spray NS DAILY #1 bottle Instructions: Upper Respiratory Infection (ED) Forms: [employer] (Lebanese) - Clinical Impression Clinical Impression: Viral disease - PA / LOAN CLERK / Resident Statement MD/DO has examined the patient and agrees with the treatment plan. - Scribe Statement The provider has reviewed the documentation as recorded by the Neal Cotton All medical record entries made by the Ashokibjayce were at my direction and personally dictated by me. I have reviewed the chart and agree that the record accurately reflects my personal performance of the history, physical exam, medical decision making, and the department course for this patient. I have also personally directed, reviewed, and agree with the discharge instructions and disposition.
== END 2018-11-12 18:42 | disposition home or self-care (01) ==
LOC: C.ER 17:49
DX: B34.9 Viral infection, unspecified (principal)

== ENCOUNTER 2018-11-18 18:23 | Emergency (ER) | payer OTHER ==
[2018-11-18 18:44] VITALS: BMI 18.0
[2018-11-18 18:46] VITALS: BP 145/78; PULSE 61; RESP 18; TEMP 97.8; O2SAT 99
== END 2018-11-18 19:19 | disposition left against medical advice (07) ==
LOC: C.ER 18:23
DX: Z02.89 Encounter for other administrative examinations (principal); R12 Heartburn

== ENCOUNTER 2018-11-18 20:50 | Emergency (ER) | payer OTHER ==
[2018-11-18 20:51] VITALS: BMI 18.0
[2018-11-18 21:01] VITALS: BP 136/79; PULSE 88; RESP 18; TEMP 98.3; O2SAT 99
--- NOTE | 2018-11-18 21:56 | C.PDOC ---
History Of Present Illness 48 y/o male with PMH of gastritis and schizophrenia presents to ED requesting prescription for his chronic heartburn. Pt is well known to this ED and has been here multiple times for similar complaints. This is the patient's 12th visit in the month of October. Currently c/o heartburn that he has had "for a long time". Denies chest pain, fevers, chills, SOB, urinary symptoms, back pain, nausea, vomiting, or any other associated symptoms. Time Seen by Provider: 11/18/18 21:18 Chief Complaint (Nursing): GI Problem Past Medical History Vital Signs: Last Vital Signs Temp 98.3 F 11/18/18 20:58 Pulse 88 11/18/18 20:58 Resp 18 11/18/18 20:58 BP 136/79 11/18/18 20:58 Pulse Ox 99 11/18/18 20:58 - Medical History PMH: Gastritis, Schizophrenia (as per previous triage, pt denies.) Family History: States: Unknown Family Hx - Social History Hx Tobacco Use: No Hx Alcohol Use: No Hx Substance Use: No - Immunization History Hx Tetanus Toxoid Vaccination: No Hx Influenza Vaccination: No Hx Pneumococcal Vaccination: No Review Of Systems Constitutional: Negative for: Fever, Chills Cardiovascular: Negative for: Chest Pain, Palpitations, Light Headedness Respiratory: Negative for: Shortness of Breath Gastrointestinal: Positive for: Other (heartburn). Negative for: Nausea, Vomiting Skin: Negative for: Rash Neurological: Negative for: Weakness, Headache, Dizziness Physical Exam - Physical Exam Appears: Well, Non-toxic, No Acute Distress Skin: Normal Color, Warm, Dry Head: Atraumatic, Normacephalic Eye(s): bilateral: Normal Inspection, PERRL, EOMI Neck: Normal, Normal ROM, Supple Cardiovascular: Rhythm Regular Respiratory: Normal Breath Sounds Gastrointestinal/Abdominal: Soft, No Tenderness Extremity: Normal ROM Extremity: Bilateral: Normal ROM Neurological/Psych: Oriented x3 Gait: Steady ED Course And Treatment O2 Sat by Pulse Oximetry: 99 Medical Decision Making Medical Decision Making: Patient states he "just wants his prescription", refusing any sort of testing or further exam. Will write prescription for maalox, advised to avoid spicy and fried, greasy foods. Patient eloped from the emergency department without discharge instructions. Disposition - Disposition Referrals: [facility] at [facility] [Outside] Disposition: HOME/ ROUTINE Disposition Time: 22:00 Condition: STABLE Additional Instructions: Maalox 10mL every 8 hours as needed for heartburn Followup with GI within 2 days Followup with primary doctor within 2 days Return to ER with any new/worsening symptoms Prescriptions: Aluminum Hydroxide/Magnesium H [Maalox 30 ml] 10 ml PO Q8H PRN #1 bottle PRN Reason: acid reflux Instructions: Acid Reflux (Gastroesophageal Reflux Disease), Adult (DC) Forms: General Discharge Instructions, [facility] (Bhutanese), Work Excuse - Clinical Impression Clinical Impression: Gastritis
== END 2018-11-18 22:00 | disposition home or self-care (01) ==
LOC: SUPCPDRO 20:50 → C.ER 20:50
DX: K29.70 Gastritis, unspecified, without bleeding (principal)

== ENCOUNTER 2018-11-20 12:37 | Emergency (ER) | payer OTHER ==
[2018-11-20 12:38] VITALS: BMI 18.0
[2018-11-20 12:47] VITALS: BP 112/73; PULSE 82; RESP 18; TEMP 98.3; O2SAT 100
[2018-11-20] MEDS ORDERED: Alum-Mag Hydrox-Simethicone Susp (30 mL) PO ONE (13:25)
[2018-11-20] MEDS ORDERED: Aluminum Hydroxide/Magnesium Hydroxide Susp (30 mL) ONE (13:29)
--- NOTE | 2018-11-20 14:30 | C.PDOC ---
History Of Present Illness 48 y/o male pt with hx of hearing aids presents to the ER c/o heart burn and rash on left ankle and foot. Pt reports the rash has progressively gotten worse and the heart burn hurts whenever he eats. Pt has no other associated sx or complaints at this time. Time Seen by Provider: 11/20/18 13:16 Chief Complaint (Nursing): GI Problem History Per: Patient History/Exam Limitations: no limitations Onset/Duration Of Symptoms: Days Current Symptoms Are (Timing): Still Present Past Medical History Reviewed: Historical Data, Nursing Documentation, Vital Signs Vital Signs: Last Vital Signs Temp 98.3 F 11/20/18 12:46 Pulse 82 11/20/18 12:46 Resp 18 11/20/18 12:46 BP 112/73 11/20/18 12:46 Pulse Ox 100 11/20/18 12:46 - Medical History PMH: Gastritis, Schizophrenia (as per previous triage, pt denies.) Family History: States: Unknown Family Hx - Social History Hx Tobacco Use: No Hx Alcohol Use: No Hx Substance Use: No - Immunization History Hx Tetanus Toxoid Vaccination: No Hx Influenza Vaccination: No Hx Pneumococcal Vaccination: No Review Of Systems Except As Marked, All Systems Reviewed And Found Negative. Cardiovascular: Positive for: Other (heart burn ) Skin: Positive for: Rash (on left ankle and foot ) Physical Exam - Physical Exam Appears: Non-toxic, No Acute Distress Skin: Warm, Dry, Rash (left ankle and foot; raised, erythematous and satellite lesions) Head: Atraumatic, Normacephalic Eye(s): bilateral: Normal Inspection Oral Mucosa: Moist Throat: Normal Neck: Normal ROM, Supple Cardiovascular: Rhythm Regular Respiratory: Normal Breath Sounds Gastrointestinal/Abdominal: Bowel Sounds (normal), Soft, No Tenderness Neurological/Psych: Oriented x3, Normal Speech, Normal Cognition, Normal Motor, Normal Sensation ED Course And Treatment O2 Sat by Pulse Oximetry: 100 (RA) Pulse Ox Interpretation: Normal Medical Decision Making Medical Decision Making: Impression: possible fungal infection treating patient for tinea pedis and acid reflux Plans: -- pepcid -- maalox Disposition - Disposition Referrals: [facility] at [facility] [Outside] [facility] at [facility] [Outside] [facility] [place] [Outside] Disposition: HOME/ ROUTINE Disposition Time: 13:46 Condition: GOOD Prescriptions: Clotrimazole/Betamethasone [Lotrisone] 30 gm EXT BID #1 tube Famotidine [Pepcid] 40 mg PO DAILY #30 tablet Forms: [employer] (Sinhala) - Clinical Impression Clinical Impression: Gastritis, Tinea pedis - Scribe Statement The provider has reviewed the documentation as recorded by the Scribe Melida Lam Provider Attestation: All medical record entries made by the Scribe were at my direction and personally dictated by me. I have reviewed the chart and agree that the record accurately reflects my personal performance of the history, physical exam, medical decision making, and the department course for this patient. I have also personally directed, reviewed, and agree with the discharge instructions and disposition.
== END 2018-11-20 13:46 | disposition home or self-care (01) ==
LOC: C.ER 12:37
DX: K29.70 Gastritis, unspecified, without bleeding (principal); B35.3 Tinea pedis

== ENCOUNTER 2018-11-24 16:04 | Emergency (ER) | payer OTHER ==
[2018-11-24 16:36] VITALS: BMI 18.1
[2018-11-24 16:37] VITALS: BP 129/79; PULSE 76; RESP 18; TEMP 98.7; O2SAT 100
--- NOTE | 2018-11-24 17:05 | C.PDOC ---
History Of Present Illness 48 y/o male with a PMHx of gastritis and schizophrenia, presents to the ED today for complaints of pain to the left lower leg. Patient is well known to this ED, with frequent visits for various complaints. He states pain began while running. Denies any fall or trauma. Requests prescription for Bengay ointment. Denies having any other complaints Time Seen by Provider: 11/24/18 16:54 Chief Complaint (Nursing): Pain, Chronic History Per: Patient History/Exam Limitations: no limitations Onset/Duration Of Symptoms: Hrs Current Symptoms Are (Timing): Still Present Past Medical History Reviewed: Historical Data, Nursing Documentation, Vital Signs Vital Signs: Last Vital Signs Temp 98.7 F 11/24/18 16:36 Pulse 76 11/24/18 16:36 Resp 18 11/24/18 16:36 BP 129/79 11/24/18 16:36 Pulse Ox 100 11/24/18 16:36 - Medical History PMH: Gastritis, Schizophrenia (as per previous triage, pt denies.) Family History: States: Unknown Family Hx - Social History Hx Tobacco Use: No Hx Alcohol Use: No Hx Substance Use: No - Immunization History Hx Tetanus Toxoid Vaccination: No Hx Influenza Vaccination: No Hx Pneumococcal Vaccination: No Review Of Systems Except As Marked, All Systems Reviewed And Found Negative. Constitutional: Negative for: Fever Cardiovascular: Negative for: Chest Pain Respiratory: Negative for: Shortness of Breath Musculoskeletal: Positive for: Leg Pain (left lower leg) Skin: Negative for: Rash Neurological: Negative for: Weakness, Numbness Physical Exam - Physical Exam Appears: Non-toxic, No Acute Distress Skin: Warm, Dry, No Rash Eye(s): bilateral: Normal Inspection Neck: Normal ROM Chest: Symmetrical Respiratory: No Accessory Muscle Use Extremity: Normal ROM, No Tenderness (patient indicates lateral aspect of left lower extremity as site of pain, however no tenderness elicited), No Deformity, No Swelling (or erythema) Pulses: Left Dorsalis Pedis: Normal, Right Dorsalis Pedis: Normal Neurological/Psych: Oriented x3, Other (Flat affect) ED Course And Treatment O2 Sat by Pulse Oximetry: 100 (RA) Pulse Ox Interpretation: Normal Medical Decision Making Medical Decision Making: Plan: Patient given rx for Bengay as requested. Disposition Counseled Patient/Family Regarding: Need For Followup, Rx Given - Disposition Referrals: [facility] at [facility] [Outside] Disposition: HOME/ ROUTINE Disposition Time: 17:03 Condition: STABLE Prescriptions: Menthol [Bengay] 1 appl TP BID #1 tube Instructions: Muscle and Bone Pain (DC) Forms: [facility] (Sinhala), General Discharge Instructions - POA Present On Arrival: None - Clinical Impression Clinical Impression: Leg pain, left - Scribe Statement The provider has reviewed the documentation as recorded by the Ashokibe Tamiko Longoria Provider Attestation: All medical record entries made by the Neal were at my direction and personally dictated by me. I have reviewed the chart and agree that the record accurately reflects my personal performance of the history, physical exam, medical decision making, and the department course for this patient. I have also personally directed, reviewed, and agree with the discharge instructions and disposition.
== END 2018-11-24 17:25 | disposition home or self-care (01) ==
LOC: C.ER 16:04
DX: M79.605 Pain in left leg (principal)

== ENCOUNTER 2018-12-03 11:28 | Emergency (ER) | payer OTHER | END 2018-12-03 12:20 | disposition home or self-care (01) | LOC: C.ER 11:28 ==

== ENCOUNTER 2018-12-08 14:28 | Emergency (ER) | payer OTHER ==
[2018-12-08 14:28] VITALS: BMI 18.0
[2018-12-08 15:42] VITALS: BP 117/68; PULSE 80; RESP 20; TEMP 98.3; O2SAT 98
--- NOTE | 2018-12-08 16:22 | C.PDOC ---
History Of Present Illness 48 y/o male presents to the ER complaining of right leg pain which began after he was jogging earlier today. Patient denies having weakness and numbness. Of note, patient has been evaluated by multiple times for leg pain in [facility] ER. Time Seen by Provider: 12/08/18 16:13 Chief Complaint (Nursing): Lower Extremity Problem/Injury History Per: Patient History/Exam Limitations: no limitations Onset/Duration Of Symptoms: Hrs Current Symptoms Are (Timing): Still Present Severity: Moderate Past Medical History Reviewed: Historical Data, Nursing Documentation, Vital Signs Vital Signs: Last Vital Signs Temp 98.3 F 12/08/18 15:37 Pulse 80 12/08/18 15:37 Resp 20 12/08/18 15:37 BP 117/68 12/08/18 15:37 Pulse Ox 98 12/08/18 15:37 - Medical History PMH: Gastritis, Schizophrenia (as per previous triage, pt denies.) Other Surgeries: Hx of surgeries Family History: States: No Known Family Hx - Social History Hx Tobacco Use: No Hx Alcohol Use: No Hx Substance Use: No - Immunization History Hx Tetanus Toxoid Vaccination: No Hx Influenza Vaccination: No Hx Pneumococcal Vaccination: No Review Of Systems Except As Marked, All Systems Reviewed And Found Negative. Musculoskeletal: Positive for: Leg Pain (right leg pain) Neurological: Negative for: Weakness, Numbness Physical Exam - Physical Exam Appears: Non-toxic, No Acute Distress Skin: Normal Color, Warm, Dry Head: Atraumatic, Normacephalic Eye(s): bilateral: Normal Inspection Nose: Normal Oral Mucosa: Moist Neck: Supple Chest: Symmetrical Extremity: Normal ROM, No Tenderness, No Swelling Neurological/Psych: Oriented x3, Normal Speech ED Course And Treatment O2 Sat by Pulse Oximetry: 98 (RA) Pulse Ox Interpretation: Normal Progress Note: Patient treated with Flexeril PO. Patient has been discharged and instructed to follow up with PMD in 1-2 days. Disposition - Disposition Disposition: HOME/ ROUTINE Disposition Time: 17:08 Condition: STABLE Additional Instructions: Follow up with your PMD within 1-2 days. Return to ED if feel worse. Prescriptions: Cyclobenzaprine [Cyclobenzaprine HCl] 10 mg PO TID #15 tab Diclofenac Sodium [Voltaren] 1 appl TP BID #100 gel..gram. Instructions: Chronic Pain (DC) Forms: [employer] (Brazilian) - Clinical Impression Clinical Impression: Leg pain - PA / LADLE CLEANER / Resident Statement MD/DO has reviewed & agrees with the documentation as recorded. - Scribe Statement The provider has reviewed the documentation as recorded by the Scribe Samreen Whatley Provider Attestation All medical record entries made by the Ashokibe were at my direction and personally dictated by me. I have reviewed the chart and agree that the record accurately reflects my personal performance of the history, physical exam, medical decision making, and the department course for this patient. I have also personally directed, reviewed, and agree with the discharge instructions and disposition.
== END 2018-12-08 17:57 | disposition home or self-care (01) ==
LOC: C.ER 14:28
DX: M79.604 Pain in right leg (principal)

== ENCOUNTER 2018-12-14 10:05 | Emergency (ER) | payer OTHER ==
[2018-12-14 10:05] VITALS: BMI 18.0
[2018-12-14 10:26] VITALS: BP 112/75; PULSE 81; RESP 18; TEMP 97.4; O2SAT 97
--- NOTE | 2018-12-14 11:13 | C.PDOC ---
History Of Present Illness 48 y/o male presents to the ER complaining of abdominal pain and constipation. Patient states that he had his last bm yesterday. Denies having fever,chills, nausea,vomiting, and urinary symptoms. Time Seen by Provider: 12/14/18 10:28 Chief Complaint (Nursing): GI Problem History Per: Patient History/Exam Limitations: no limitations Onset/Duration Of Symptoms: Days Current Symptoms Are (Timing): Still Present Severity: Moderate Past Medical History Reviewed: Historical Data, Nursing Documentation, Vital Signs Vital Signs: Last Vital Signs Temp 97.4 F L 12/14/18 10:22 Pulse 81 12/14/18 10:22 Resp 18 12/14/18 11:09 BP 112/75 12/14/18 10:22 Pulse Ox 97 12/14/18 10:22 - Medical History PMH: Gastritis, Schizophrenia (as per previous triage, pt denies.) Other Surgeries: Hx of surgeries Family History: States: No Known Family Hx - Social History Hx Tobacco Use: No Hx Alcohol Use: No Hx Substance Use: No - Immunization History Hx Tetanus Toxoid Vaccination: No Hx Influenza Vaccination: No Hx Pneumococcal Vaccination: No Review Of Systems Except As Marked, All Systems Reviewed And Found Negative. Constitutional: Negative for: Fever, Chills Gastrointestinal: Positive for: Abdominal Pain, Constipation. Negative for: Nausea, Vomiting Genitourinary: Negative for: Dysuria, Hematuria Physical Exam - Physical Exam Appears: Non-toxic, No Acute Distress Skin: Normal Color, Warm, Dry Head: Atraumatic, Normacephalic Eye(s): bilateral: Normal Inspection Nose: Normal Oral Mucosa: Moist Neck: Supple Chest: Symmetrical Cardiovascular: Rhythm Regular Respiratory: Normal Breath Sounds, No Rales, No Rhonchi, No Wheezing Gastrointestinal/Abdominal: Soft, Tenderness (mild epigastric tenderness), No Guarding, No Rebound Neurological/Psych: Oriented x3, Normal Speech ED Course And Treatment O2 Sat by Pulse Oximetry: 97 (RA) Pulse Ox Interpretation: Normal Medical Decision Making Medical Decision Making: Plan: --[id number] Updates: Patient eloped from the ER. Disposition - Disposition Disposition: ELOPEMENT - ER ONLY Disposition Time: 11:10 Condition: UNKNOWN Forms: [facility] (Mongolian) - Clinical Impression Clinical Impression: Constipation - PA / CLAIMS ATTORNEY / Resident Statement MD/DO has reviewed & agrees with the documentation as recorded. - Scribe Statement The provider has reviewed the documentation as recorded by the Scribe Samreen Whatley Provider Attestation All medical record entries made by the Ashokibjayce were at my direction and personally dictated by me. I have reviewed the chart and agree that the record accurately reflects my personal performance of the history, physical exam, medical decision making, and the department course for this patient. I have also personally directed, reviewed, and agree with the discharge instructions and disposition.
== END 2018-12-14 11:10 | disposition left against medical advice (07) ==
LOC: C.ER 10:05
DX: K59.00 Constipation, unspecified (principal)

== ENCOUNTER 2018-12-16 19:08 | Emergency (ER) | payer OTHER ==
[2018-12-16 19:08] VITALS: BMI 18.0
[2018-12-16 19:17] VITALS: BP 114/81; PULSE 80; RESP 20; TEMP 97.9; O2SAT 98
--- NOTE | 2018-12-16 19:38 | C.PDOC ---
History Of Present Illness 48 year old male with PMHx of hemorrhoids presents to ED with complaint of pain with bowel movement. Patient is requesting medication for his pain. He denies abdominal pain, nausea, vomiting, diarrhea, fever, chills, and diaphoresis. Time Seen by Provider: 12/16/18 19:33 Chief Complaint (Nursing): GI Problem History Per: Patient History/Exam Limitations: no limitations Onset/Duration Of Symptoms: Hrs Current Symptoms Are (Timing): Still Present Past Medical History Reviewed: Historical Data, Nursing Documentation, Vital Signs Vital Signs: Last Vital Signs Temp 97.9 F 12/16/18 19:14 Pulse 80 12/16/18 19:14 Resp 20 12/16/18 19:14 BP 114/81 12/16/18 19:14 Pulse Ox 98 12/16/18 19:14 - Medical History PMH: Gastritis, Schizophrenia (as per previous triage, pt denies.) Other PMH: Hemorrhoids Surgical History: No Surg Hx Family History: States: Unknown Family Hx - Social History Hx Tobacco Use: No Hx Alcohol Use: No Hx Substance Use: No - Immunization History Hx Tetanus Toxoid Vaccination: No Hx Influenza Vaccination: No Hx Pneumococcal Vaccination: No Review Of Systems Constitutional: Negative for: Fever, Chills, Weakness Gastrointestinal: Positive for: Rectal Pain (pain with bowel movement). Negative for: Nausea, Vomiting, Abdominal Pain, Diarrhea Neurological: Negative for: Weakness, Numbness, Dizziness Physical Exam - Physical Exam Appears: Well, Non-toxic, No Acute Distress Skin: Normal Color, Warm, Dry Head: Atraumatic, Normacephalic Neck: Normal ROM, Supple Chest: Symmetrical, No Deformity Respiratory: No Accessory Muscle Use Gastrointestinal/Abdominal: Soft, No Tenderness Rectal: Other (refused) Back: Normal Inspection Extremity: Capillary Refill (<2 seconds) Extremity: Bilateral: Atraumatic, Normal Color And Temperature, Normal ROM Neurological/Psych: Oriented x3, Normal Speech, Normal Cognition Gait: Steady ED Course And Treatment O2 Sat by Pulse Oximetry: 98 Progress Note: Patient refused rectal exam. Discussed plan with patient who expresses understanding. All questions answered and there is agreement with the plan to discharge home with instructions. Patient stable for discharge. Return if symptoms persist or worsen Disposition Counseled Patient/Family Regarding: Diagnosis, Need For Followup - Disposition Referrals: [facility] [Outside] Disposition: HOME/ ROUTINE Disposition Time: 19:35 Condition: STABLE Additional Instructions: Please follow up in clinic Eat high fiber Return to ER if worse Prescriptions: Docusate Sodium [Colace] 100 mg PO BID #10 capsule Hydrocortisone [Anusol-HC] 25 mg RC BID #10 sup Instructions: Hemorrhoids Forms: [facility] (Albanian) - Clinical Impression Clinical Impression: Rectal pain, chronic - 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 (Olimpia Elizabeth) - Scribe Statement The provider has reviewed the documentation as recorded by the Scribe (Olimpia Elizabeth) All medical record entries made by the Scribe were at my direction and personally dictated by me. I have reviewed the chart and agree that the record accurately reflects my personal performance of the history, physical exam, medical decision making, and the department course for this patient. I have also personally directed, reviewed, and agree with the discharge instructions and disposition.
== END 2018-12-16 19:49 | disposition home or self-care (01) ==
LOC: C.ER 19:08
DX: G89.29 Other chronic pain (principal); K62.89 Other specified diseases of anus and rectum

== ENCOUNTER 2018-12-19 17:28 | Emergency (ER) | payer OTHER ==
[2018-12-19 17:28] VITALS: BMI 18.0
[2018-12-19 17:37] VITALS: BP 142/78; PULSE 86; RESP 18; TEMP 98.5; O2SAT 99
--- NOTE | 2018-12-19 18:09 | C.PDOC ---
Time Seen by Provider: 12/19/18 17:42 Chief Complaint (Nursing): Lower Extremity Problem/Injury Past Medical History Vital Signs: Last Vital Signs Temp 98.5 F 12/19/18 17:34 Pulse 86 12/19/18 17:34 Resp 18 12/19/18 17:34 BP 142/78 12/19/18 17:34 Pulse Ox 99 12/19/18 17:34 - Medical History PMH: Gastritis, Schizophrenia (as per previous triage, pt denies.) Family History: States: Unknown Family Hx - Social History Hx Tobacco Use: No Hx Alcohol Use: No Hx Substance Use: No - Immunization History Hx Tetanus Toxoid Vaccination: No Hx Influenza Vaccination: No Hx Pneumococcal Vaccination: No ED Course And Treatment O2 Sat by Pulse Oximetry: 99 Disposition - Disposition Disposition: LEFT W/O BEING SEEN - ER ONLY Disposition Time: 18:05 Condition: UNKNOWN Forms: [employer] (Nigerien) - Clinical Impression Clinical Impression: Eloped from emergency department
== END 2018-12-19 18:17 | disposition left against medical advice (07) ==
LOC: C.ER 17:28
DX: Z02.89 Encounter for other administrative examinations (principal); M79.604 Pain in right leg; M79.605 Pain in left leg

== ENCOUNTER 2018-12-20 18:36 | Emergency (ER) | payer OTHER ==
[2018-12-20 18:36] VITALS: BMI 18.0
[2018-12-20 18:45] VITALS: BP 116/76; PULSE 68; RESP 18; TEMP 98; O2SAT 98
--- NOTE | 2018-12-20 20:36 | C.PDOC ---
History Of Present Illness 48 year old male, whose past medical history includes schizophrenia, presents to the ED for evaluation of leg pain. Patient claims he runs regularly and has been experiencing pain with running. Patient was evaluated in this ED for a similar complaint on 12/14 and was prescribed Cyclobenzaprine HCl and a topical cream for the pain. Patient returns to the ED today requesting muscle relaxants and some cream to apply to the area. When patient was informed of his previous prescriptions, he states he was not given anything. Patient then requests to be referred to an orthopedist. Patient denies recent trauma/injuries to the site or extremity numbness/weakness. Time Seen by Provider: 12/20/18 19:27 Chief Complaint (Nursing): Lower Extremity Problem/Injury History Per: Patient History/Exam Limitations: no limitations Onset/Duration Of Symptoms: Days Current Symptoms Are (Timing): Still Present Additional History Per: Patient Past Medical History Reviewed: Historical Data, Nursing Documentation, Vital Signs Vital Signs: Last Vital Signs Temp 98 F 12/20/18 18:44 Pulse 68 12/20/18 18:44 Resp 18 12/20/18 18:44 BP 116/76 12/20/18 18:44 Pulse Ox 98 12/20/18 18:44 - Medical History PMH: Gastritis, Schizophrenia (as per previous triage, pt denies.) Surgical History: No Surg Hx Family History: States: Unknown Family Hx - Social History Hx Tobacco Use: No Hx Alcohol Use: No Hx Substance Use: No - Immunization History Hx Tetanus Toxoid Vaccination: No Hx Influenza Vaccination: No Hx Pneumococcal Vaccination: No Review Of Systems Constitutional: Negative for: Fever, Chills, Weakness Respiratory: Negative for: Cough, Shortness of Breath Musculoskeletal: Positive for: Leg Pain. Negative for: Back Pain Neurological: Negative for: Weakness, Numbness Physical Exam - Physical Exam Appears: Well, Non-toxic, No Acute Distress Skin: Normal Color, Warm, No Rash Chest: Symmetrical Respiratory: No Accessory Muscle Use, Other (normal inspiratory effort ) Extremity: Normal ROM (bilateral lower extremities ), Capillary Refill (less than 2 seconds ), Other (no erythema or edema, no palpable cords, no Renay's sign ) Extremity: Bilateral: Atraumatic Pulses: Left Dorsalis Pedis: Normal, Right Dorsalis Pedis: Normal Neurological/Psych: Oriented x3, Normal Speech, Normal Motor, Normal Sensation ED Course And Treatment O2 Sat by Pulse Oximetry: 98 (on RA) Pulse Ox Interpretation: Normal Medical Decision Making Medical Decision Making: Progress: On reassessment, patient is resting comfortably, showing no signs of distress and is stable for discharge. Patient advised to take the medication and apply the topical cream that was prescribed to him during his previous visit. Patient advised to follow up with PMD/clinic within 1-2 days for further evaluation. 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 - Scribe Statement The provider has reviewed the documentation as recorded by the Scribe (Lashonda Guthrie) All medical record entries made by the Scribe were at my direction and personally dictated by me. I have reviewed the chart and agree that the record accurately reflects my personal performance of the history, physical exam, medical decision making, and the department course for this patient. I have also personally directed, reviewed, and agree with the discharge instructions and disposition.
== END 2018-12-20 20:47 | disposition home or self-care (01) ==
LOC: C.ER 18:36
DX: M79.606 Pain in leg, unspecified (principal)

== ENCOUNTER 2018-12-24 09:42 | Emergency (ER) | payer OTHER ==
[2018-12-24 09:49] VITALS: BMI 22.4
[2018-12-24 09:51] VITALS: BP 135/89; PULSE 95; RESP 16; TEMP 98.9; O2SAT 99
[2018-12-24] MEDS ORDERED: Bacitracin 500 Units/gm Oint Foilpak UD TOP ONE (09:55)
--- NOTE | 2018-12-24 09:59 | C.PDOC ---
History Of Present Illness 48 yo male, well known to er, presnts for eval for rigth lower leg abrasion. poor hisotarin. well known to er for vaque complaints. unsure of how sustained. no fevers. co if chronic knee pain. nearly daily er vsits for various complaints. Time Seen by Provider: 12/24/18 09:48 Chief Complaint (Nursing): Lower Extremity Problem/Injury Past Medical History Reviewed: Historical Data, Nursing Documentation, Vital Signs Vital Signs: Last Vital Signs Temp 98.9 F 12/24/18 09:49 Pulse 95 H 12/24/18 09:49 Resp 16 12/24/18 09:49 BP 135/89 12/24/18 09:49 Pulse Ox 99 12/24/18 09:49 - Medical History PMH: Gastritis, Schizophrenia (as per previous triage, pt denies.) Family History: States: Unknown Family Hx - Social History Hx Tobacco Use: No Hx Alcohol Use: No Hx Substance Use: No - Immunization History Hx Tetanus Toxoid Vaccination: No Hx Influenza Vaccination: No Hx Pneumococcal Vaccination: No Review Of Systems Except As Marked, All Systems Reviewed And Found Negative. Skin: Positive for: Other (abrasion) Physical Exam - Physical Exam Appears: Well, No Acute Distress Skin: Normal Color, Warm, Dry Eye(s): bilateral: Normal Inspection, PERRL, EOMI Nose: Normal Throat: Normal Neck: Normal Cardiovascular: Rhythm Regular Respiratory: Normal Breath Sounds Gastrointestinal/Abdominal: Normal Exam Back: Normal Inspection Extremity: Normal ROM, No Tenderness, No Deformity, No Swelling, Other (abrasion to right lower leg) ED Course And Treatment O2 Sat by Pulse Oximetry: 99 Medical Decision Making Medical Decision Making: bacitraicin outpt fu Disposition - Disposition Referrals: [facility] [Outside] [facility] [Outside] Disposition: HOME/ ROUTINE Disposition Time: 09:50 Condition: STABLE Additional Instructions: return to er with worsening. Instructions: Skin Abrasions Forms: [employer] (Solomon Islander) - Clinical Impression Clinical Impression: Chronic leg pain, Abrasion
[2018-12-24] MEDS ORDERED: Bacitracin 500 Units/gm Oint Foilpak UD ONE (10:01)
== END 2018-12-24 10:04 | disposition home or self-care (01) ==
LOC: C.ER 09:42
DX: S80.811A Abrasion, right lower leg, initial encounter (principal); X58.XXXA Exposure to other specified factors, initial encounter; G89.29 Other chronic pain; M79.604 Pain in right leg

== ENCOUNTER 2018-12-25 13:47 | Emergency (ER) | payer OTHER ==
[2018-12-25 13:47] VITALS: BMI 22.4
[2018-12-25 13:52] VITALS: BP 129/80; PULSE 78; TEMP 98.3; O2SAT 98
[2018-12-25 15:51] VITALS: RESP 18
--- NOTE | 2018-12-25 17:10 | C.PDOC ---
History Of Present Illness 48 year old male presents to the ED complaining of throat pain. Reports he was trying to eat but he was unable to swallow so he had to throw up the food. Denies any other associated symptoms. Patient with history of multiple ED visits. Time Seen by Provider: 12/25/18 14:34 Chief Complaint (Nursing): ENT Problem History Per: Patient History/Exam Limitations: no limitations Onset/Duration Of Symptoms: Hrs Current Symptoms Are (Timing): Still Present Reports Recently: Seen In ED Past Medical History Reviewed: Historical Data, Nursing Documentation, Vital Signs Vital Signs: Last Vital Signs Temp 98.3 F 12/25/18 13:50 Pulse 78 12/25/18 13:50 Resp 18 12/25/18 15:50 BP 129/80 12/25/18 13:50 Pulse Ox 98 12/25/18 13:50 - Medical History PMH: Gastritis, Schizophrenia (as per previous triage, pt denies.) Other Surgeries: hx of surgeries Family History: States: No Known Family Hx - Social History Hx Tobacco Use: No Hx Alcohol Use: No Hx Substance Use: No - Immunization History Hx Tetanus Toxoid Vaccination: No Hx Influenza Vaccination: No Hx Pneumococcal Vaccination: No Review Of Systems Except As Marked, All Systems Reviewed And Found Negative. Constitutional: Negative for: Fever, Chills ENT: Positive for: Throat Pain Cardiovascular: Negative for: Chest Pain Respiratory: Negative for: Shortness of Breath Gastrointestinal: Negative for: Nausea, Vomiting, Diarrhea Neurological: Negative for: Headache Physical Exam - Physical Exam Appears: Non-toxic, No Acute Distress Skin: Warm, Dry, No Rash Head: Normacephalic Eye(s): bilateral: PERRL, EOMI Nose: Normal Oral Mucosa: Moist Tongue: Normal Appearing Lips: Normal Appearing Throat: Normal, No Erythema, No Exudate Neck: Supple Chest: Symmetrical Cardiovascular: Rhythm Regular Respiratory: Normal Breath Sounds, No Rales, No Rhonchi, No Wheezing Gastrointestinal/Abdominal: Soft, No Tenderness Neurological/Psych: Oriented x3, Normal Speech Gait: Steady ED Course And Treatment O2 Sat by Pulse Oximetry: 98 (RA) Pulse Ox Interpretation: Normal Medical Decision Making Medical Decision Making: On re-exam, the patient is tolerating PO well. Airways are patent. Disposition - Disposition Referrals: Shayne Stanton MD [Staff Provider] - Disposition: HOME/ ROUTINE Disposition Time: 14:20 Condition: STABLE Additional Instructions: Follow up with the medical doctor within 1-2 days. Return if worsened. 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 - Scribe Statement The provider has reviewed the documentation as recorded by the Scribe Nga Ponce All medical record entries made by the Ashokibjayce were at my direction and personally dictated by me. I have reviewed the chart and agree that the record accurately reflects my personal performance of the history, physical exam, medical decision making, and the department course for this patient. I have also personally directed, reviewed, and agree with the discharge instructions and disposition.
== END 2018-12-25 15:52 | disposition home or self-care (01) ==
LOC: C.ER 13:47
DX: R13.10 Dysphagia, unspecified (principal)

== ENCOUNTER 2018-12-28 19:25 | Emergency (ER) | payer OTHER ==
[2018-12-28 19:25] VITALS: BMI 22.4
[2018-12-28 19:33] VITALS: BP 116/80; PULSE 78; TEMP 97.6; O2SAT 100
[2018-12-28 20:05] VITALS: RESP 20
--- NOTE | 2018-12-28 20:32 | C.PDOC ---
History Of Present Illness 48 year old male presents to the ED requesting prescriptions for Pepcid and Albuterol inhaler. Patient is familiar to this ED and has had many prior visits in the past. Patient offers no physical complaints at this time. Time Seen by Provider: 12/28/18 19:57 Chief Complaint (Nursing): Abdominal Pain History Per: Patient History/Exam Limitations: no limitations Current Symptoms Are (Timing): Still Present Past Medical History Reviewed: Historical Data, Nursing Documentation, Vital Signs Vital Signs: Last Vital Signs Temp 97.6 F 12/28/18 19:30 Pulse 78 12/28/18 19:30 Resp 18 12/28/18 19:30 BP 116/80 12/28/18 19:30 Pulse Ox 100 12/28/18 19:30 - Medical History PMH: Asthma, Gastritis, Schizophrenia (as per previous triage, pt denies.) Denies: Chronic Kidney Disease Surgical History: No Surg Hx Family History: States: Unknown Family Hx - Social History Hx Tobacco Use: No Hx Alcohol Use: No Hx Substance Use: No - Immunization History Hx Tetanus Toxoid Vaccination: No Hx Influenza Vaccination: No Hx Pneumococcal Vaccination: No ED Course And Treatment O2 Sat by Pulse Oximetry: 100 (on RA ) Pulse Ox Interpretation: Normal Disposition Counseled Patient/Family Regarding: Diagnosis, Need For Followup, Rx Given - Disposition Referrals: [facility] [Outside] Disposition: HOME/ ROUTINE Disposition Time: 20:00 Condition: STABLE Prescriptions: Albuterol HFA [Ventolin HFA 90 mcg/actuation (8 g)] 0.09 mg IH Q4 PRN #1 puff PRN Reason: Wheezing Famotidine [Pepcid] 20 mg PO BID PRN #15 tab PRN Reason: abdominal Forms: [employer] (Taiwanese) Print Language: SINHALA - Clinical Impression Clinical Impression: Encounter for medication refill - Scribe Statement The provider has reviewed the documentation as recorded by the Scribe (Lashonda Guthrie) Provider Attestation: All medical record entries made by the Scribe were at my direction and personally dictated by me. I have reviewed the chart and agree that the record accurately reflects my personal performance of the history, physical exam, medical decision making, and the department course for this patient. I have also personally directed, reviewed, and agree with the discharge instructions and disposition.
--- NOTE | 2018-12-28 20:40 | C.PDOC ---
History Of Present Illness 48 year old male presents to the ED requesting prescriptions for Pepcid and Albuterol inhaler. Patient is familiar to this ED and has had many prior visits in the past. Patient offers no physical complaints at this time. Time Seen by Provider: 12/28/18 19:57 Chief Complaint (Nursing): Abdominal Pain History Per: Patient History/Exam Limitations: no limitations Onset/Duration Of Symptoms: Hrs Current Symptoms Are (Timing): Still Present Past Medical History Reviewed: Historical Data, Nursing Documentation, Vital Signs Vital Signs: Last Vital Signs Temp 97.6 F 12/28/18 19:30 Pulse 78 12/28/18 19:30 Resp 20 12/28/18 20:03 BP 116/80 12/28/18 19:30 Pulse Ox 100 12/28/18 19:30 - Medical History PMH: Asthma, Gastritis, Schizophrenia (as per previous triage, pt denies.) Denies: Chronic Kidney Disease Surgical History: No Surg Hx Family History: States: Unknown Family Hx - Social History Hx Tobacco Use: No Hx Alcohol Use: No Hx Substance Use: No - Immunization History Hx Tetanus Toxoid Vaccination: No Hx Influenza Vaccination: No Hx Pneumococcal Vaccination: No Review Of Systems Constitutional: Negative for: Fever, Chills Physical Exam - Physical Exam Appears: Non-toxic, No Acute Distress Skin: Normal Color, Warm, Dry Head: Atraumatic, Normacephalic Oral Mucosa: Moist Neck: Supple Chest: Symmetrical, No Deformity Cardiovascular: Rhythm Regular Respiratory: No Accessory Muscle Use Extremity: Normal ROM Neurological/Psych: Other (bizarre affect ) ED Course And Treatment O2 Sat by Pulse Oximetry: 100 (on RA ) Pulse Ox Interpretation: Normal Disposition - Disposition Referrals: [facility] [Outside] Disposition: HOME/ ROUTINE Condition: STABLE Prescriptions: Albuterol HFA [Ventolin HFA 90 mcg/actuation (8 g)] 0.09 mg IH Q4 PRN #1 puff PRN Reason: Wheezing Famotidine [Pepcid] 20 mg PO BID PRN #15 tab PRN Reason: abdominal Forms: [facility] (Tongan) Print Language: KHMER - Clinical Impression Clinical Impression: Encounter for medication refill - Scribe Statement The provider has reviewed the documentation as recorded by the Scribe (Lashonda Guthrie) Provider Attestation: All medical record entries made by the Scribe were at my direction and personally dictated by me. I have reviewed the chart and agree that the record accurately reflects my personal performance of the history, physical exam, medical decision making, and the department course for this patient. I have also personally directed, reviewed, and agree with the discharge instructions and disposition.
== END 2018-12-28 20:04 | disposition home or self-care (01) ==
LOC: C.ER 19:25
DX: Z76.0 Encounter for issue of repeat prescription (principal)

== ENCOUNTER 2018-12-30 17:39 | Emergency (ER) | payer OTHER ==
[2018-12-30 17:40] VITALS: BMI 22.4
[2018-12-30 17:45] VITALS: BP 123/78; PULSE 88; RESP 16; TEMP 98.2; O2SAT 97
--- NOTE | 2018-12-30 18:33 | C.PDOC ---
History Of Present Illness 48 y/o male presents to the ER complaining of runny nose.Patient states that he would like prescription for his symptoms. Patient denies having fever,chills,cough, CP,SOB, nausea, and vomiting. Time Seen by Provider: 12/30/18 18:16 Chief Complaint (Nursing): ENT Problem History Per: Patient History/Exam Limitations: no limitations Onset/Duration Of Symptoms: Days Current Symptoms Are (Timing): Still Present Severity: Moderate Past Medical History Reviewed: Historical Data, Nursing Documentation, Vital Signs Vital Signs: Last Vital Signs Temp 98.2 F 12/30/18 17:44 Pulse 88 12/30/18 17:44 Resp 16 12/30/18 17:44 BP 123/78 12/30/18 17:44 Pulse Ox 97 12/30/18 17:44 - Medical History PMH: Asthma, Gastritis, Schizophrenia (as per previous triage, pt denies.) Denies: Chronic Kidney Disease Other Surgeries: Hx of surgeries Family History: States: No Known Family Hx - Social History Hx Tobacco Use: No Hx Alcohol Use: No Hx Substance Use: No - Immunization History Hx Tetanus Toxoid Vaccination: No Hx Influenza Vaccination: No Hx Pneumococcal Vaccination: No Review Of Systems Except As Marked, All Systems Reviewed And Found Negative. Constitutional: Negative for: Fever, Chills ENT: Positive for: Nose Discharge (runny nose) Cardiovascular: Negative for: Chest Pain Respiratory: Negative for: Shortness of Breath Gastrointestinal: Negative for: Nausea, Vomiting, Abdominal Pain Physical Exam - Physical Exam Appears: Non-toxic, No Acute Distress Skin: Normal Color, Warm, Dry Head: Atraumatic, Normacephalic Eye(s): bilateral: Normal Inspection Nose: Normal, No Discharge Oral Mucosa: Moist Throat: Normal, No Erythema, No Exudate Neck: Supple Chest: Symmetrical Cardiovascular: Rhythm Regular Respiratory: Normal Breath Sounds, No Rales, No Rhonchi, No Wheezing Neurological/Psych: Oriented x3, Normal Speech ED Course And Treatment O2 Sat by Pulse Oximetry: 97 (RA) Pulse Ox Interpretation: Normal Disposition - Disposition Referrals: [facility] [Outside] Disposition: HOME/ ROUTINE Disposition Time: 18:32 Condition: GOOD Additional Instructions: Follow up with the medical doctor within 1-2 days. Return if worsened. Prescriptions: Fluticasone Propionate [Flonase] 1 spr NS DAILY #100 spr Instructions: Cough, Runny Nose, and the Common Cold (DC) Forms: [employer] (Latvian) - Clinical Impression Clinical Impression: Rhinitis - PA / DIRECTOR OF GRANTS / Resident Statement MD/DO has reviewed & agrees with the documentation as recorded. - Scribe Statement The provider has reviewed the documentation as recorded by the Scribe Samreen Whatley Provider Attestation All medical record entries made by the Scribe were at my direction and personally dictated by me. I have reviewed the chart and agree that the record accurately reflects my personal performance of the history, physical exam, medical decision making, and the department course for this patient. I have also personally directed, reviewed, and agree with the discharge instructions and disposition.
== END 2018-12-30 18:35 | disposition home or self-care (01) ==
LOC: C.ER 17:39
DX: J31.0 Chronic rhinitis (principal)

== ENCOUNTER 2019-01-01 19:05 | Emergency (ER) | payer OTHER ==
[2019-01-01 19:25] VITALS: BP 129/77; PULSE 88; RESP 18; TEMP 97.9; O2SAT 96; BMI 18.1
--- NOTE | 2019-01-01 19:30 | C.PDOC ---
History Of Present Illness 48 y/o male pt with hx of schizophrenia presents to the ER c/o itchy skin on the bottom of his neck today. Pt reports he tried "getting rid of it by scratching it more". Pt has no other complaints or associated sx at this time. Time Seen by Provider: 01/01/19 19:27 Chief Complaint (Nursing): Abnormal Skin Integrity History Per: Patient History/Exam Limitations: no limitations Onset/Duration Of Symptoms: Hrs Current Symptoms Are (Timing): Still Present Past Medical History Reviewed: Historical Data, Nursing Documentation, Vital Signs Vital Signs: Last Vital Signs Temp 97.9 F 01/01/19 19:18 Pulse 88 01/01/19 19:18 Resp 18 01/01/19 19:18 BP 129/77 01/01/19 19:18 Pulse Ox 96 01/01/19 19:18 - Medical History PMH: Asthma, Gastritis, Schizophrenia (as per previous triage, pt denies.) Family History: States: Unknown Family Hx - Social History Hx Tobacco Use: No Hx Alcohol Use: No Hx Substance Use: No Review Of Systems Except As Marked, All Systems Reviewed And Found Negative. Skin: Positive for: Rash Physical Exam - Physical Exam Appears: Non-toxic, No Acute Distress Skin: Warm, Dry, Other (2 pimple; erythematous skin ) Head: Normacephalic Eye(s): bilateral: Normal Inspection Ear(s): Bilateral: Normal Nose: Normal Oral Mucosa: Moist Throat: Normal, No Erythema, No Exudate Neck: Normal ROM, Supple Chest: Symmetrical, No Deformity Cardiovascular: Rhythm Regular Respiratory: Normal Breath Sounds, No Rales, No Rhonchi, No Wheezing Neurological/Psych: Oriented x3, Normal Speech ED Course And Treatment O2 Sat by Pulse Oximetry: 96 (RA) Pulse Ox Interpretation: Normal Medical Decision Making Medical Decision Making: plans: -- benadryl Disposition - Disposition Referrals: [facility] [Outside] [facility] at [facility] [Outside] [facility] [place] [Outside] Disposition: HOME/ ROUTINE Disposition Time: 20:09 Condition: GOOD Prescriptions: Hydrocortisone 1% Oint [Cortizone 1% Oint] 30 gm TP BID #1 tube Instructions: Skin Rash Forms: [employer] (Kyrgyz) - Clinical Impression Clinical Impression: Skin rash - Scribe Statement The provider has reviewed the documentation as recorded by the Scribe Montez Do Provider Attestation: All medical record entries made by the Neal were at my direction and persona lly dictated by me. I have reviewed the chart and agree that the record accurately reflects my personal performance of the history, physical exam, medical decision making, and the department course for this patient. I have also personally directed, reviewed, and agree with the discharge instructions and disposition.
== END 2019-01-01 20:10 | disposition home or self-care (01) ==
LOC: C.ER 19:05
DX: R21 Rash and other nonspecific skin eruption (principal)

== ENCOUNTER 2019-01-06 18:38 | Emergency (ER) | payer OTHER ==
[2019-01-06 18:38] VITALS: BMI 20.3
[2019-01-06 18:44] VITALS: BP 114/72; PULSE 69; RESP 18; TEMP 98.1; O2SAT 100
--- NOTE | 2019-01-06 19:24 | C.PDOC ---
History Of Present Illness 48 y/o male presents to the ER complaining of right leg pain which began after he was jogging.Patient is requesting muscle relaxers for the pain.Patient denies having weakness and numbness. Time Seen by Provider: 01/06/19 19:18 Chief Complaint (Nursing): Lower Extremity Problem/Injury History Per: Patient History/Exam Limitations: no limitations Onset/Duration Of Symptoms: Hrs Current Symptoms Are (Timing): Still Present Severity: Moderate Past Medical History Reviewed: Historical Data, Nursing Documentation, Vital Signs Vital Signs: Last Vital Signs Temp 98.1 F 01/06/19 18:42 Pulse 69 01/06/19 18:42 Resp 18 01/06/19 18:42 BP 114/72 01/06/19 18:42 Pulse Ox 100 01/06/19 18:42 - Medical History PMH: Asthma, Gastritis, Schizophrenia (as per previous triage, pt denies.) Other Surgeries: Hx of surgeries Family History: States: No Known Family Hx - Social History Hx Tobacco Use: No Hx Alcohol Use: No Hx Substance Use: No Review Of Systems Musculoskeletal: Positive for: Leg Pain Neurological: Negative for: Weakness, Numbness Physical Exam - Physical Exam Appears: Non-toxic, No Acute Distress Skin: Normal Color, Warm, Dry Head: Atraumatic, Normacephalic Eye(s): bilateral: Normal Inspection Nose: Normal Oral Mucosa: Moist Neck: Supple Chest: Symmetrical Extremity: Normal ROM, No Tenderness, No Swelling Neurological/Psych: Oriented x3, Normal Speech ED Course And Treatment O2 Sat by Pulse Oximetry: 100 (RA) Pulse Ox Interpretation: Normal Progress Note: Patient has been discharged with prescriptions for Tylenol and Cyclobenzaprine. Disposition Counseled Patient/Family Regarding: Diagnosis, Need For Followup, Rx Given - Disposition Referrals: [facility] [Outside] Disposition: HOME/ ROUTINE Disposition Time: 19:20 Condition: STABLE Additional Instructions: Please follow up with PMD Return to ER if worse Prescriptions: Acetaminophen [Tylenol 325mg tab] 325 mg PO BID #14 tab Cyclobenzaprine [Cyclobenzaprine HCl] 10 mg PO HS #2 tab Instructions: Muscle and Bone Pain (DC) Forms: [employer] (Bengali) - Clinical Impression Clinical Impression: Muscle strain - PA / ENROLLMENT PROCESSOR / Resident Statement MD/DO has reviewed & agrees with the documentation as recorded. - Scribe Statement The provider has reviewed the documentation as recorded by the Scribe Samreen Whatley Provider Attestation All medical record entries made by the Scribe were at my direction and personally dictated by me. I have reviewed the chart and agree that the record accurately reflects my personal performance of the history, physical exam, medical decision making, and the department course for this patient. I have also personally directed, reviewed, and agree with the discharge instructions and disposition.
== END 2019-01-06 19:47 | disposition home or self-care (01) ==
LOC: C.ER 18:38
DX: S86.911A Strain of unspecified muscle(s) and tendon(s) at lower leg level, right leg, initial encounter (principal); Y93.02 Activity, running

== ENCOUNTER 2019-01-10 09:20 | Emergency (ER) | payer OTHER ==
[2019-01-10 09:20] VITALS: BMI 20.3
== END 2019-01-10 09:54 | disposition left against medical advice (07) ==
LOC: C.ER 09:20
DX: Z02.89 Encounter for other administrative examinations (principal); H92.02 Otalgia, left ear

== ENCOUNTER 2019-01-11 11:04 | Emergency (ER) | payer OTHER ==
[2019-01-11 11:21] VITALS: BP 126/89; PULSE 73; RESP 20; TEMP 98.3; O2SAT 97; BMI 21.7
== END 2019-01-11 11:53 | disposition left against medical advice (07) ==
LOC: C.ER 11:04
DX: Z02.89 Encounter for other administrative examinations (principal); H92.02 Otalgia, left ear

== ENCOUNTER 2019-01-13 10:56 | Emergency (ER) | payer OTHER ==
[2019-01-13 11:03] VITALS: BP 145/76; PULSE 80; RESP 16; TEMP 99; O2SAT 100; BMI 18.0
--- NOTE | 2019-01-13 11:15 | C.PDOC ---
History Of Present Illness 48 y/o male c/o pain in left ear after using a q tip, sts he thinks he has too much wax in ear. no fever. Time Seen by Provider: 01/13/19 11:07 Chief Complaint (Nursing): ENT Problem History Per: Patient History/Exam Limitations: None Onset/Duration Of Symptoms: Hrs Current Symptoms Are (Timing): Still Present Quality (Ear): Pain W/Touch (3) Quality (Mouth/Throat): denies: Tenderness Symptoms Have Been: Continuous Severity: Moderate Past Medical History Reviewed: Historical Data, Nursing Documentation, Vital Signs Vital Signs: Last Vital Signs Temp 99.0 F 01/13/19 11:00 Pulse 80 01/13/19 11:00 Resp 16 01/13/19 11:00 BP 145/76 01/13/19 11:00 Pulse Ox 100 01/13/19 11:00 - Medical History PMH: Asthma, Gastritis, Schizophrenia (as per previous triage, pt denies.) Family History: States: Unknown Family Hx - Social History Hx Tobacco Use: No Hx Alcohol Use: No Hx Substance Use: No Review Of Systems Constitutional: Negative for: Fever, Chills ENT: Positive for: Ear Pain. Negative for: Ear Discharge, Throat Pain Respiratory: Negative for: Cough Neurological: Negative for: Weakness, Numbness Physical Exam - Physical Exam Appears: Non-toxic, No Acute Distress Skin: Warm, Dry Head: Atraumatic, Normacephalic Eye(s): bilateral: Normal Inspection Ear(s): Left: Other (tender to tragus, beige discharge noted in canal blocking visualization of TM, some wax in anterior canal), Right: TM Obscured By Wax Nose: No Discharge Oral Mucosa: Moist ED Course And Treatment O2 Sat by Pulse Oximetry: 100 Medical Decision Making Medical Decision Making: pt with pain and beige debris in left ear. will treat for otitis externa. Disposition Counseled Patient/Family Regarding: Diagnosis, Need For Followup, Rx Given - Disposition Referrals: Aman Padro MD [Staff Provider] - [facility] [Outside] Disposition: HOME/ ROUTINE Disposition Time: 11:16 Condition: GOOD Additional Instructions: Use drops as directed in left ear. DO not use q-tips or any other object in ear. Follow up with your doctor, or clinic or with Dr Shaari (ENT) in a few days. Tylenol for pain if needed. Prescriptions: Acetaminophen [Tylenol 325mg tab] 650 mg PO Q6 #30 tab Neomycin/Polymyxin/Hydrocortis [Cortisporin Otic Susp] 4 drop OT QID #1 bottle Instructions: Outer Ear Infection (DC) Forms: [facility] (Upper Sorbian), General Discharge Instructions - Clinical Impression Clinical Impression: Otitis externa, left
== END 2019-01-13 11:24 | disposition home or self-care (01) ==
LOC: C.ER 10:56
DX: H60.92 Unspecified otitis externa, left ear (principal)

== ENCOUNTER → 2019-01-16 | Emergency (ER) | payer OTHER | LOC: C.ER 14:29 ==

== ENCOUNTER → 2019-01-17 | Emergency (ER) | payer OTHER | LOC: C.ER 10:25 ==

== ENCOUNTER 2019-01-18 10:18 | Emergency (ER) | payer OTHER | END 2019-01-18 11:15 | disposition home or self-care (01) | LOC: C.ER 10:18 ==

== ENCOUNTER 2019-01-20 17:05 | Emergency (ER) | payer OTHER ==
[2019-01-20 17:06] VITALS: BMI 19.6
[2019-01-20 17:11] VITALS: BP 132/82; PULSE 72; RESP 20; TEMP 98.5; O2SAT 97
--- NOTE | 2019-01-20 17:36 | C.PDOC ---
History Of Present Illness 48 y/o male presents to the ED complaining of dysuria for 1 day. He denies any hematuria, abdominal pain, fevers, or testicular pain/swelling. Patient states he tried to go to the ED at [place] for evaluation, but left because they did not do anything for me. Patient is requesting Flomax. Patient with many prior ED visits for various complaints. Time Seen by Provider: 01/20/19 17:16 Chief Complaint (Nursing): Male Genitourinary History Per: Patient History/Exam Limitations: no limitations Onset/Duration Of Symptoms: Days (x 1) Current Symptoms Are (Timing): Still Present Past Medical History Reviewed: Historical Data, Nursing Documentation, Vital Signs Vital Signs: Last Vital Signs Temp 98.5 F 01/20/19 17:10 Pulse 72 01/20/19 17:10 Resp 20 01/20/19 17:10 BP 132/82 01/20/19 17:10 Pulse Ox 97 01/20/19 17:10 - Medical History PMH: Asthma, Gastritis, Schizophrenia (as per previous triage, pt denies.) Family History: States: Unknown Family Hx - Social History Hx Tobacco Use: No Hx Alcohol Use: No Hx Substance Use: No Review Of Systems Constitutional: Negative for: Fever, Chills Gastrointestinal: Negative for: Abdominal Pain Genitourinary: Positive for: Dysuria. Negative for: Hematuria Musculoskeletal: Negative for: Back Pain Neurological: Negative for: Weakness Physical Exam - Physical Exam Appears: Non-toxic, No Acute Distress Skin: Normal Color, No Rash Head: Atraumatic, Normacephalic Eye(s): bilateral: PERRL, EOMI Neck: Normal ROM Respiratory: No Accessory Muscle Use, Other (Speaking in complete sentences) Gastrointestinal/Abdominal: Bowel Sounds (normal), Soft, No Tenderness, No Distention Back: No CVA Tenderness, No Vertebral Tenderness Extremity: Normal ROM, No Swelling Neurological/Psych: Oriented x3, Normal Speech, Normal Cognition ED Course And Treatment O2 Sat by Pulse Oximetry: 97 (RA) Pulse Ox Interpretation: Normal Medical Decision Making Medical Decision Making: Plan: UA and urine culture sent. 18:05 Informed by RN that patient is missing from his chair. 18:15 Patient not found in the bathroom or anywhere. Patient has eloped from the ED. Ua reviewed, neg for infection. Disposition - Disposition Disposition: ELOPEMENT - ER ONLY Disposition Time: 18:05 Condition: STABLE Forms: [facility] (Portuguese) - Clinical Impression Clinical Impression: Eloped from emergency department, Dysuria - PA / ELEVATOR REPAIRER / Resident Statement MD/DO has reviewed & agrees with the documentation as recorded. - Scribe Statement The provider has reviewed the documentation as recorded by the Ashokibjayce Longoria All medical record entries made by the Ashokibjayce were at my direction and personally dictated by me. I have reviewed the chart and agree that the record accurately reflects my personal performance of the history, physical exam, medical decision making, and the department course for this patient. I have also personally directed, reviewed, and agree with the discharge instructions and disposition.
[2019-01-20 18:19] LABS: URINE BILIRUBIN NEGATIVE (NEGATIVE); URINE BLOOD NEGATIVE (NEGATIVE); URINE CLARITY Clear (Clear); URINE COLOR Straw (YELLOW); URINE GLUCOSE (UA) NORMAL (Normal); URINE LEUKOCYTE ESTERASE NEG Leu/uL (Negative); URINE PROTEIN NEGATIVE (NEGATIVE); URINE UROBILINOGEN NORMAL mg/dL (0.2-1.0)
== END 2019-01-20 17:40 | disposition left against medical advice (07) ==
LOC: C.ER 17:05
DX: R30.0 Dysuria (principal)

== ENCOUNTER 2019-01-23 12:13 | Emergency (ER) | payer OTHER ==
[2019-01-23 12:13] VITALS: BMI 23.7
[2019-01-23 12:19] VITALS: BP 122/81; PULSE 65; RESP 20; TEMP 97.3; O2SAT 100
== END 2019-01-23 12:29 | disposition left against medical advice (07) ==
LOC: C.ER 12:13
DX: Z02.89 Encounter for other administrative examinations (principal); R12 Heartburn

== ENCOUNTER 2019-01-25 15:31 | Emergency (ER) | payer OTHER ==
[2019-01-25 15:32] VITALS: BMI 23.7
[2019-01-25 15:40] VITALS: BP 115/70; PULSE 79; RESP 20; TEMP 98.2; O2SAT 97
--- NOTE | 2019-01-25 15:58 | C.PDOC ---
History Of Present Illness 48-year-old male presents to the ED requesting a prescription for Pepcid, stating that he has been experiencing heartburn for several months. Patient states he is asymptomatic at this time, and denies nausea, vomiting, and diarrhea. Time Seen by Provider: 01/25/19 15:44 Chief Complaint (Nursing): GI Problem History Per: Patient History/Exam Limitations: no limitations Onset/Duration Of Symptoms: Days Current Symptoms Are (Timing): Gone Past Medical History Reviewed: Historical Data, Nursing Documentation, Vital Signs Vital Signs: Last Vital Signs Temp 98.2 F 01/25/19 15:38 Pulse 79 01/25/19 15:38 Resp 20 01/25/19 15:38 BP 115/70 01/25/19 15:38 Pulse Ox 97 01/25/19 15:38 Primary Care Provider: FAMILY PROVIDER,NO - Medical History PMH: Asthma, Gastritis, Schizophrenia (as per previous triage, pt denies.) Surgical History: No Surg Hx Family History: States: Unknown Family Hx - Social History Hx Tobacco Use: No Hx Alcohol Use: No Hx Substance Use: No - Immunization History Hx Tetanus Toxoid Vaccination: No Hx Influenza Vaccination: No Hx Pneumococcal Vaccination: No Review Of Systems Gastrointestinal: Negative for: Nausea, Vomiting, Diarrhea Physical Exam - Physical Exam Appears: Non-toxic, No Acute Distress Skin: Normal Color, Warm, Dry Head: Atraumatic, Normacephalic Oral Mucosa: Moist Neck: Supple Chest: Symmetrical, No Deformity, No Tenderness Cardiovascular: Rhythm Regular, No Murmur Respiratory: Normal Breath Sounds, No Rales, No Rhonchi, No Wheezing Gastrointestinal/Abdominal: Soft, No Tenderness, No Guarding, No Rebound Extremity: Normal ROM Neurological/Psych: Other (bizarre affect) ED Course And Treatment O2 Sat by Pulse Oximetry: 97 (on RA) Pulse Ox Interpretation: Normal Disposition Counseled Patient/Family Regarding: Diagnosis, Need For Followup, Rx Given - Disposition Referrals: Angelina Snowden [Staff Provider] - [facility] [Outside] Disposition: HOME/ ROUTINE Disposition Time: 16:00 Condition: STABLE Additional Instructions: FOLLOW UP WITH SQE WITHIN 1 WEEK USE PEPCID NEEDED RETURN TO ER IF SYMPTOMS WORSEN Prescriptions: Famotidine [Pepcid] 20 mg PO BID PRN #30 tab PRN Reason: abdominal Instructions: Dyspepsia (DC) Forms: [employer] (Botswanan) Print Language: PANAMANIAN - Clinical Impression Clinical Impression: Dyspepsia - Scribe Statement The provider has reviewed the documentation as recorded by the Scribe (Lashonda Guthrie) Provider Attestation: All medical record entries made by the Scribe were at my direction and personally dictated by me. I have reviewed the chart and agree that the record accurately reflects my personal performance of the history, physical exam, medical decision making, and the department course for this patient. I have also personally directed, reviewed, and agree with the discharge instructions and disposition.
== END 2019-01-25 16:23 | disposition home or self-care (01) ==
LOC: C.ER 15:31
DX: R10.13 Epigastric pain (principal)

== ENCOUNTER 2019-01-28 19:45 | Emergency (ER) | payer MEDICARE, OTHER ==
[2019-01-28 19:45] VITALS: BMI 22.9
[2019-01-28 19:54] VITALS: BP 134/87; PULSE 78; RESP 18; TEMP 98.4; O2SAT 98
--- NOTE | 2019-01-28 20:20 | C.PDOC ---
History Of Present Illness 48 year old male presents to ED requesting a muscle relaxor because he "ran a lot this week." Patient has no other physical complaints. Time Seen by Provider: 01/28/19 20:05 Chief Complaint (Nursing): Lower Extremity Problem/Injury History Per: Patient History/Exam Limitations: no limitations Onset/Duration Of Symptoms: Unknown Current Symptoms Are (Timing): Still Present Past Medical History Reviewed: Historical Data, Nursing Documentation, Vital Signs Vital Signs: Last Vital Signs Temp 98.4 F 01/28/19 19:53 Pulse 78 01/28/19 19:53 Resp 18 01/28/19 19:53 BP 134/87 01/28/19 19:53 Pulse Ox 98 01/28/19 19:53 Primary Care Provider: FAMILY PROVIDER,NO - Medical History PMH: Asthma, Gastritis, Schizophrenia (as per previous triage, pt denies.) Surgical History: No Surg Hx Family History: States: Unknown Family Hx - Social History Hx Tobacco Use: No Hx Alcohol Use: No Hx Substance Use: No - Immunization History Hx Tetanus Toxoid Vaccination: No Hx Influenza Vaccination: No Hx Pneumococcal Vaccination: No Review Of Systems Constitutional: Negative for: Fever, Chills, Weakness Cardiovascular: Negative for: Chest Pain Respiratory: Negative for: Cough, Shortness of Breath Gastrointestinal: Negative for: Nausea, Vomiting, Abdominal Pain Musculoskeletal: Negative for: Back Pain, Leg Pain Neurological: Negative for: Weakness, Numbness, Dizziness Physical Exam - Physical Exam Appears: Well, Non-toxic, No Acute Distress Skin: Normal Color, Warm, Dry Head: Atraumatic, Normacephalic Eye(s): bilateral: Normal Inspection Ear(s): Bilateral: Normal Neck: Normal ROM, Supple Chest: Symmetrical, No Deformity Cardiovascular: Rhythm Regular, No Murmur Respiratory: No Accessory Muscle Use, No Rales, No Rhonchi, No Wheezing Gastrointestinal/Abdominal: Soft, No Tenderness Extremity: Capillary Refill (<2 seconds) Neurological/Psych: Oriented x3, Normal Speech, Normal Cognition ED Course And Treatment O2 Sat by Pulse Oximetry: 98 (in RA) Pulse Ox Interpretation: Normal Medical Decision Making Medical Decision Making: Plan: Patient prescribed Pepcid and flexeril. Patient stable for discharge. Disposition - Disposition Referrals: [facility] [Outside] Disposition: HOME/ ROUTINE Disposition Time: 20:18 Condition: GOOD Additional Instructions: Follow up with the medical doctor within 1-2 days. return if worsened. Prescriptions: Cyclobenzaprine [Flexeril] 5 mg PO TID #21 tab Famotidine [Pepcid] 20 mg PO BID #20 tab Instructions: Dyspepsia Forms: [facility] (Faroese) - Clinical Impression Clinical Impression: Muscle strain - PA / NUTRITIONAL SERVICES DIRECTOR / Resident Statement MD/DO has reviewed & agrees with the documentation as recorded. (Olimpia Elizabeth) - Scribe Statement The provider has reviewed the documentation as recorded by the Scribe (Olimpia Elizabeth) All medical record entries made by the Scribe were at my direction and personally dictated by me. I have reviewed the chart and agree that the record accurately reflects my personal performance of the history, physical exam, medical decision making, and the department course for this patient. I have also personally directed, reviewed, and agree with the discharge instructions and disposition.
== END 2019-01-28 20:43 | disposition home or self-care (01) ==
LOC: C.ER 19:45
DX: S86.919A Strain of unspecified muscle(s) and tendon(s) at lower leg level, unspecified leg, initial encounter (principal); X50.9XXA Other and unspecified overexertion or strenuous movements or postures, initial encounter; Y93.02 Activity, running

== ENCOUNTER → 2019-02-02 20:08 | Emergency (ER) | payer OTHER ==
[2019-02-02 20:09] VITALS: BMI 20.9
== END | disposition left against medical advice (07) ==
LOC: C.ER 20:08
DX: Z02.89 Encounter for other administrative examinations (principal)

== ENCOUNTER → 2019-02-06 17:56 | Emergency (ER) | payer MEDICARE, OTHER ==
[2019-02-06 17:56] VITALS: BMI 20.9
== END | disposition left against medical advice (07) ==
LOC: C.ER 17:56
DX: Z02.89 Encounter for other administrative examinations (principal)

== ENCOUNTER → 2019-02-10 17:45 | Emergency (ER) | payer MEDICARE, OTHER ==
[2019-02-10 17:45] VITALS: BMI 20.9
== END | disposition left against medical advice (07) ==
LOC: C.ER 17:45
DX: Z02.89 Encounter for other administrative examinations (principal)

== ENCOUNTER 2019-02-15 17:54 | Emergency (ER) | payer MEDICARE, OTHER ==
[2019-02-15 17:55] VITALS: BMI 20.9
[2019-02-15 17:59] VITALS: BP 117/79; PULSE 89; TEMP 98.4; O2SAT 97
[2019-02-15 18:20] VITALS: RESP 18
== END 2019-02-15 18:10 | disposition left against medical advice (07) ==
LOC: C.ER 17:54
DX: Z02.89 Encounter for other administrative examinations (principal); M79.669 Pain in unspecified lower leg

== ENCOUNTER 2019-02-17 19:00 | Emergency (ER) | payer OTHER | END 2019-02-17 19:21 | disposition left against medical advice (07) | LOC: C.ER 19:21 ==

== ENCOUNTER 2019-02-19 17:31 | Emergency (ER) | payer OTHER ==
[2019-02-19 17:32] VITALS: BMI 20.9
== END 2019-02-19 17:32 | disposition left against medical advice (07) ==
LOC: C.ER 17:31
DX: Z02.89 Encounter for other administrative examinations (principal)